=== PATIENT | male | born 1940 | race Two or more races ===

== ENCOUNTER 2017-09-20 10:41 | Emergency (ER) | payer OTHER, MEDICAID ==
[~2017-09-20] VITALS: Ht 170.2 cm; Wt 80.3 kg
[2017-09-20 11:27] VITALS: BP 132/74
[2017-09-20] MEDS ORDERED: LIDOCAINE 1% (LOCAL ANESTH.) PF 5ml SDV IJ ONE (11:45)
[2017-09-20] MEDS ORDERED: TETANUS-DIPTH-ACEL PERTUSSIS 0.5ML SYRG IM ONE (11:45)
== END 2017-09-20 13:15 | disposition home or self-care (01) ==
LOC: ER 10:41
DX: S61.012A Laceration without foreign body of left thumb without damage to nail, initial encounter (principal); S31.119A Laceration without foreign body of abdominal wall, unspecified quadrant without penetration into peritoneal cavity, initial encounter; I10 Essential (primary) hypertension; Z86.73 Personal history of transient ischemic attack (TIA), and cerebral infarction without residual deficits; W22.8XXA Striking against or struck by other objects, initial encounter; Y93.89 Activity, other specified; Y99.8 Other external cause status; Y92.89 Other specified places as the place of occurrence of the external cause
CPT/HCPCS: 12002; 71046; 73130; 74018; 90715

== ENCOUNTER 2017-10-04 09:40 | Emergency (ER) | payer MEDICARE, MEDICAID ==
[~2017-10-04] VITALS: Ht 177.8 cm; Wt 79.4 kg
[2017-10-04 10:28] VITALS: BP 137/81
== END 2017-10-04 11:36 | disposition home or self-care (01) ==
LOC: ER 09:40
DX: S31.119D Laceration without foreign body of abdominal wall, unspecified quadrant without penetration into peritoneal cavity, subsequent encounter (principal); I25.10 Atherosclerotic heart disease of native coronary artery without angina pectoris; I10 Essential (primary) hypertension; Z48.02 Encounter for removal of sutures

== ENCOUNTER 2022-04-20 10:01 | Emergency (ER) | payer OTHER, MEDICAID ==
[~2022-04-20] VITALS: Ht 175.3 cm; Wt 80.0 kg
[2022-04-20 10:44] LABS: Albumin 3.5 g/dL (3.4-5.0); Calcium 8.3 mg/dL (8.5-10.1); Potassium 3.1 mmol/L (3.5-5.1)
[2022-04-20 10:48] LABS: BUN/Creatinine Ratio 15.3; Bilirubin, Total 0.9 mg/dL (0.2-1.0); Total Protein 7.3 g/dL (6.4-8.2)
[2022-04-20 11:00] LABS: Basophils # (auto) 0 10 ^3/uL (0-0.2); Basophils % (auto) 0.2 % (0.0-2.0); Eosinophils # (auto) 0.1 10 ^3/uL (0-0.8); Eosinophils % (auto) 0.8 % (0.0-7.0); Hematocrit 42.3 % (41.0-53.0); Hemoglobin 14.8 g/dL (13.5-17.5); Lymphocytes # (auto) 1.2 10 ^3/uL (0.4-5.4); Lymphocytes % (auto) 15.8 % (10.0-50.0); Mean Corpuscular Hemoglobin 31.4 pg (28.0-32.0); Mean Corpuscular Volume 89.6 fL (80.0-100.0); Monocytes # (auto) 1.2 10 ^3/uL (0-1.3); Monocytes % (auto) 15.1 % (0.0-12.0); Neutrophils # (auto) 5.2 10 ^3/uL (1.6-8.6); Neutrophils % (auto) 68.1 % (37.0-80.0); Nucleated Red Blood Cells % 0.2 %; Red Blood Cells 4.72 10^6/uL (4.5-5.90); Red Cell Distribution Width 13.7 % (11.8-14.3); White Blood Cell 7.6 10^3/uL (4.4-10.8)
[2022-04-20] MEDS ORDERED: SODIUM CHLORIDE 0.9% 1,000 ML IV ONE (13:15)
[2022-04-20] MEDS ORDERED: ASPirin 81 mg TAB PO ONE (13:15)
[2022-04-20 14:37] LABS: INR 1.12 (0.9-1.15); Partial Thromboplastin Time 37.3 sec (24.6-33.4)
[2022-04-20] MEDS ORDERED: METO-281 PO ×2 (16:03→16:40)
[2022-04-20] MEDS ORDERED: OMEP-263 PO ×2 (16:03→16:40)
[2022-04-20] MEDS ORDERED: ALBUAER3 IN ×2 (16:03→16:40)
[2022-04-20] MEDS ORDERED: POTASSIUM EFFERVESENT TAB 25 MEQ PO ONE (16:15)
[2022-04-20 16:43] VITALS: BP 108/63
== END 2022-04-20 16:46 | disposition home or self-care (01) ==
LOC: ER 10:01
DX: R07.89 Other chest pain (principal); J84.10 Pulmonary fibrosis, unspecified; E87.6 Hypokalemia; I13.0 Hypertensive heart and chronic kidney disease with heart failure and stage 1 through stage 4 chronic kidney disease, or unspecified chronic kidney disease; N18.9 Chronic kidney disease, unspecified; I50.9 Heart failure, unspecified; I25.10 Atherosclerotic heart disease of native coronary artery without angina pectoris
CPT/HCPCS: 36415; 71046; 80053; 83735; 84443; 84484; 85025; 85610; 85730; 93005; 96360; 99285; J7030

== ENCOUNTER 2022-10-26 15:16 | Emergency (ER) | payer OTHER ==
[~2022-10-26] VITALS: Ht 170.2 cm; Wt 75.0 kg
[~2022-10-26 15:16] MED LIST: ALBUAER3 IN; METO-281 PO; OMEP-263 PO
[2022-10-26] MEDS ORDERED: HYDROmorphone HCL 2 MG/ML VL/or syr IM ONE (16:30)
[2022-10-26 16:35] LABS: Basophils # (auto) 0 10 ^3/uL (0-0.2); Basophils % (auto) 0.4 % (0.0-2.0); Eosinophils # (auto) 0.1 10 ^3/uL (0-0.8); Eosinophils % (auto) 1.3 % (0.0-7.0); Hematocrit 41.9 % (41.0-53.0); Hemoglobin 14.6 g/dL (13.5-17.5); Lymphocytes # (auto) 1.2 10 ^3/uL (0.4-5.4); Lymphocytes % (auto) 17.5 % (10.0-50.0); Mean Corpuscular Hemoglobin 32.2 pg (28.0-32.0); Mean Corpuscular Hgb Conc. 34.9 g/dL (32.0-36.0); Mean Corpuscular Volume 92.2 fL (80.0-100.0); Monocytes # (auto) 0.6 10 ^3/uL (0-1.3); Monocytes % (auto) 9.3 % (0.0-12.0); Neutrophils # (auto) 4.7 10 ^3/uL (1.6-8.6); Neutrophils % (auto) 71.5 % (37.0-80.0); Nucleated Red Blood Cells % 0.1 %; Red Blood Cells 4.54 10^6/uL (4.5-5.90); Red Cell Distribution Width 13.9 % (11.8-14.3); White Blood Cell 6.6 10^3/uL (4.4-10.8)
[2022-10-26 16:53] LABS: Albumin 3.8 g/dL (3.4-5.0); Calcium 8.6 mg/dL (8.5-10.1); Potassium 4.4 mmol/L (3.5-5.1)
[2022-10-26 16:56] LABS: BUN/Creatinine Ratio 21.1 (10.0-20.0); Bilirubin, Total 0.7 mg/dL (0.2-1.0); Total Protein 7.7 g/dL (6.4-8.2)
[2022-10-26] MEDS ORDERED: FLEET ENEMA(ADULT) 135 ML PR ONE ×2 (19:00)
[2022-10-26] MEDS ORDERED: LACT10SO3 PO (21:47)
[2022-10-26] MEDS ORDERED: SODIENE35 RE (21:47)
[2022-10-26 22:20] VITALS: BP 122/72
== END 2022-10-26 22:23 | disposition home or self-care (01) ==
LOC: EDBD 15:16 → ER 15:16
DX: K57.90 Diverticulosis of intestine, part unspecified, without perforation or abscess without bleeding (principal); K59.00 Constipation, unspecified; I11.0 Hypertensive heart disease with heart failure; I50.9 Heart failure, unspecified; Z88.6 Allergy status to analgesic agent; Z88.8 Allergy status to other drugs, medicaments and biological substances
CPT/HCPCS: 36415; 74176; 80053; 83690; 83735; 84484; 85025; 96372; 99285; J1170

== ENCOUNTER 2024-05-08 14:08 | Inpatient (IN) | payer OTHER, MEDICAID ==
[~2024-05-08] VITALS: Ht 177.8 cm; Wt 65.2 kg
[~2024-05-08 14:08] MED LIST changes: +LACT10SO3 PO; -OMEP-263 PO; +OMEP-448 PO; +SODIENE35 RE
--- NOTE | 2024-05-08 14:57 | ED.PDOC ---
SOB-HPI HPI Comments HPI: Poor Historian. 84-year-old male sent from his PCP's office for suspected pneumonia. The patient has been having productive cough and mild shortness of breath. Denies any fever or any other acute symptoms. PMHx: angina, CAD, CHF, HTN, HLD, and DM PSHx: denies Vitals: respiratory rate 16, SpO2 of 94%RA, pulse rate of 83, and a blood pressure of 126/76 REVIEW OF SYSTEMS: CONSTITUTIONAL: Denies acute: fever, diaphoresis, chills, generalized weakness. HEAD: Denies acute: headache, photophobia Eyes: Denies acute: Double vision, vision loss, eye pain, eye discharge. EARS: Denies acute: tinnitus, hearing loss, ear discharge, ear pain, THROAT: Denies acute: sore throat, swelling, difficulty swallowing , pain with swallowing, change in voice. NECK: Denies acute: neck pain, neck swelling, stiff neck. HEART: Denies acute : chest pain, palpitations, LUNGS: Denies acute: wheezing, hemoptysis ABDOMEN: Denies acute: abdominal pain, Nausea, Vomiting, diarrhea, melena , hematemesis, hematochezia SKIN: Denies acute: rash, redness, lesions, itchiness. EXTREMITIES: Denies acute: calf pain, numbness, tingling, weakness, denies pain in extremity. Denies acute: Low back pain. Neuro: Denies acute: focal neurological deficit, motor or sensory focal neurological deficit, tremors, seizure like activity, confusion, dizziness, change in mental status, loss of bowel or bladder function, cauda equina like symptoms. : Denies acute: dysuria, hematuria, flank pain, increase in urinary frequency. PSYCH: Denies acute: hallucination, suicidal ideation, homicidal ideation. PHYSICAL EXAM: General: no acute distress, awake and alert. Head: normocephalic, atraumatic. Neck: supple, trachea is midline, no swelling. Throat: Normal phonation. Eyes:, no erythema, no purulent discharge, no proptosis, no icterus. Heart: regular rate, regular rhythm, no significant murmur appreciated. Lungs: no apparent respiratory distress, Able to speak in full sentences. No wheezing, no rhonchi, no crackles. No stridors Clear to auscultation bilaterally. Abdomen: non tender to palpation, non distended, soft, no guarding, no rebound, + bowel sounds. Neuro: Awake, Alert, oriented to name, self, situation, follows commands GCS=15. Speech is normal. Skin: no petechia, no purpura, no cyanosis, non-pale, not jaundice. Lower extremities: --trace bilateral - Pitting edema no deformity, no focal swelling, no calf TTP. Makes eye contact. moves all four extremities. Face: no apparent facial droop. Ambulating in the ED independently. Time Seen by MD: 14:50 Primary Care Provider: JUAQUIN Reviewed notes: Nurses Notes, Allergies Information Source: Patient Was a procedure done? Was a procedure done?: No Differential Dx Differential Diagnosis: Other (DDx include ACS, unstable angina, anxiety, PE, pneumothroax, neoplasm, cardiac ischemia, COPD, asthma, CHF, pleural effusion, tobacco abuse, pneumonia, hypoxia, hypercapnia, anemia., infection/sepsis., pulmonary edema. Asthma, Cardiac tamponade, infection.) X-Ray, Labs, Meds, VS Vital Signs Date Time Temp Pulse Resp B/P (MAP) Pulse Ox O2 Delivery O2 Flow Rate FiO2 05/08/24 15:01 98.5 83 16 126/76 (93) 94 Lab Test 05/08/24 17:50 05/08/24 16:41 05/08/24 15:08 05/08/24 14:23 Range/Units Troponin I High Sensitivity 7 8 8 </=54 ng/L Blood Gas Specimen Type Arterial Blood Gas Sample Site Right radial Blood Gas Patient Temperature 37.0 Arterial Blood Date Drawn [id number] Arterial Blood pH 7.430 7.350-7.450 Arterial Blood Partial Pressure CO2 29.7 L 35.0-48.0 mmHg Arterial Blood Partial Pressure O2 59.0 L 83.0-108.0 mmHg Arterial Blood HCO3 19.3 L 21.0-28.0 mmol/L Arterial Blood Oxygen Saturation 91.2 L 94.0-98.0 % Arterial Blood Base Excess -3.7 L -2.0-3.0 mmol/L Arterial Blood Oxyhemoglobin 89.5 L 94.0-98.0 % Arterial Blood Carboxyhemoglobin 1.5 0.5-1.5 % Arterial Blood Methemoglobin 0.4 0.0-1.5 % Joe Test Yes Blood Gas Total Hemoglobin 14.50 13.5-17.5 g/dL Blood Gas Modality Room air FiO2 % 21.0 White Blood Count 7.6 4.4-10.8 10^3/uL Red Blood Count 4.58 4.5-5.90 10^6/uL Hemoglobin 14.6 13.5-17.5 g/dL Hematocrit 41.7 41.0-53.0 % Mean Corpuscular Volume 90.9 80.0-100.0 fL Mean Corpuscular Hemoglobin 31.9 28.0-32.0 pg Mean Corpuscular Hemoglobin Concent 35.1 32.0-36.0 g/dL Red Cell Distribution Width 13.6 11.8-14.3 % Platelet Count 383 140-450 10^3/uL Mean Platelet Volume 6.1 L 6.9-10.8 fL Neutrophils (%) (Auto) 73.6 37.0-80.0 % Lymphocytes (%) (Auto) 15.0 10.0-50.0 % Monocytes (%) (Auto) 10.1 0.0-12.0 % Eosinophils (%) (Auto) 1.0 0.0-7.0 % Basophils (%) (Auto) 0.3 0.0-2.0 % Neutrophils # (Auto) 5.6 1.6-8.6 10 ^3/uL Lymphocytes # (Auto) 1.1 0.4-5.4 10 ^3/uL Monocytes # (Auto) 0.8 0-1.3 10 ^3/uL Eosinophils # (Auto) 0.1 0-0.8 10 ^3/uL Basophils # (Auto) 0 0-0.2 10 ^3/uL Nucleated Red Blood Cells 0.1 % D-Dimer, Quantitative 1.56 H 0.0-0.49 mg/L FEU Sodium Level 142 136-145 mmol/L Potassium Level 4.7 3.5-5.1 mmol/L Chloride Level 107 98-107 mmol/L Carbon Dioxide Level 25 20-31 mmol/L Anion Gap 10 5-15 Blood Urea Nitrogen 27 H 9-23 mg/dL Creatinine 1.84 H 0.700-1.30 mg/dL Glomerular Filtration Rate Calc 36 >90 mL/min BUN/Creatinine Ratio 14.7 10.0-20.0 Serum Glucose 100 74-106 mg/dL Calcium Level 9.2 8.7-10.4 mg/dL Total Bilirubin 0.6 0.2-1.0 mg/dL Aspartate Amino Transferase (AST) 16 13-40 U/L Alanine Aminotransferase (ALT) 12 7-40 U/L Alkaline Phosphatase 161 H 46-116 U/L B-Type Natriuretic Peptide 170.51 0-100 pg/mL Total Protein 7.6 5.7-8.2 g/dL Albumin 4.4 3.2-4.8 g/dL [place] [address] Ph: [phone] DIAGNOSTIC IMAGING Diagnostic Imaging Report : [id number] Signed PATIENT: GABRIELA AGUILAR ACCT: [id number] UNIT: [id number] : 1940 LOC: ER ROOM / BED: / AGE / SEX: 84 / M ADM STATUS: REG ER SERVICE 1623 ORDERING PHYSICIAN: WILMAN MOTLEY DO PROCEDURE(s): CX2CT - CHEST WITHOUT CONTRAST REASON: cough sob elevated D dimer ORDER NUMBER(s): [id number], ACCESSION NUMBER(s): [id number] Procedure: CT CHEST WITHOUT CONTRAST Reason for study/Clinical History: cough sob elevated D dimer Comparison Study: None available at time of dictation. Exam Date: 05/08/2024 04:26 PM TECHNIQUE: Multidetector CT of the chest was performed from the lung apices to the upper abdomen without the use of intravenous contract. Axial, coronal and sagittal multiplanar reformats were performed. Radiation Dose Information: CT Dose: CTDI volume is 7.41 mGy. Dose-length product is 252.96 mGy*cm The dose indicators for CT are the volume Computed Tomography (CT) Dose Index (CTDIvol) and the Dose Length Product (DLP), and are measured in units of mGy and mGy-cm, respectively. These indicators are not patient dose, but values generated from the CT scanner acquisition factors. The report includes radiation exposure data for exposures received during this examination. FINDINGS: Lower neck: Normal thyroid. Lungs: Bilateral pulmonary fibrosis. Worse in the right middle and lower lobe and left lower lobe. There are no prior studies for comparison so acute versus chronic disease can not be distinguished. Heart/Vascular Structures: Normal heart size. No pericardial effusion. Lymph Nodes: No adenopathy Pleura: No pleural effusion or significant pneumothorax. Musculoskeletal: No acute osseous abnormality. Sternal wire sutures in place. Compressed T6 and T8. Soft tissues: Normal. Upper abdomen: Moderately large hiatal hernia IMPRESSION: 1. Interstitial infiltrates in both bases and right middle lobe and lingula. Acute versus chronic disease can not be distinguished without comparison films. 2. Sternal wire sutures in place. 3. Compressed T6 and T8 without displacement. Radiation optimization: All CT scans at this facility use at least one of these dose optimization techniques: automated exposure control mA and/or kV adjustment per patient size (includes targeted exams where dose is matched to clinical indication) or iterative reconstruction. ATED BY: DORIAN JACKSON Jr., DO DICTATED DATE/TIME: 05/08/241723 SIGNED BY: DORIAN JACKSON Jr., DO SIGNED DATE/TIME: 05/08/241723 CC: [place] [address] Ph: [phone] DIAGNOSTIC IMAGING Diagnostic Imaging Report : [id number] Signed PATIENT: GABRIELA AGUILAR ACCT: [id number] UNIT: [id number] : 1940 LOC: ER ROOM / BED: / AGE / SEX: 84 / M ADM STATUS: REG ER SERVICE 51 ORDERING PHYSICIAN: WILMAN MOTLEY DO PROCEDURE(s): CXRP - CHEST PORTABLE REASON: cough sob ORDER NUMBER(s): [id number], ACCESSION NUMBER(s): [id number] CHEST RADIOGRAPH Indication:cough sob Technique: Single frontal view of the chest was obtained COMPARISON: EKG on DOS: 04/20/22, EKG on DOS: 04/20/22, EKG on DOS: 04/20/22 FINDINGS: Lines and Tubes: Median sternotomy. Lungs: Multifocal airspace disease. Chronic fibrotic changes. Pleura: No effusion. No pneumothorax. Cardiomediastinal contours: Cardiomegaly. Moderate hiatal hernia. Bones: Unremarkable IMPRESSION: Chronic fibrotic changes with probable superimposed multifocal airspace disease. Clinical correlation advised. ATED BY: EDVIN FREEMAN MD DICTATED DATE/TIME: 05/08/241514 SIGNED BY: EDVIN FREEMAN MD SIGNED DATE/TIME: 05/08/241514 CC: Time of 1ST Reevaluation: 15:20 Reevaluation 1ST: Unchanged Patient Education/Counseling: Diagnosis, Treatment Family Education/Counseling: No Family Present Comments Patient presented with the above HPI.----dyspnea/cough--workup was initiated. patient was found with the above mentioned diagnosis. Patient was given: Rocephin Patient ED course and VS have been stabilized. Patient has been reassessed in the ED and remained in a stable condition. Pertinent incidental findings were discussed with the patient and/or family. Patient/family voices understanding and is agreeable with plan. Patient has been observed in the ED adequate length of time to insure improvement/stability. patient was admitted to the medicine team for further evaluation and treatment of their presentation. We were unable to obtain a CTA angiogram of the chest to rule out PE because of the patient's creatinine level. V/Q scan is not available at this hour at this facility. All the reports of any imaging studies that were ordered by myself were reviewed by myself. Departure 1 Departure Time of Disposition: 16:25 Impression: Primary Impression: Multifocal pneumonia Additional Impressions: Dyspnea Elevated d-dimer Disposition: ADMITTED INPATIENT Admit to: [facility] Condition: Guarded Discharged With: Self Critical Care Note Critical Care Time?: No Heart Score Heart Score: Heart Score Response (Comments) Value History Slightly Suspicious 0 EKG Normal 0 Age >65 2 Risk Factors >3 or Hx ASHD 2 Troponin Normal limit 0 Total 4 I personally scribed for WILMAN MOTLEY DO ([email or web address]) on 05/08/24 at 14:57. Electronically submitted by Fidel Chavis ([email or web address]). I personally scribed for WILMAN MOTLEY DO ([email or web address]) on 05/08/24 at 19:02. Electronically submitted by Fidel Chavis ([email or web address]). I personally scribed for WILMAN MOTLEY DO ([email or web address]) on 05/08/24 at 19:26. Electronically submitted by Fidel Chavis ([email or web address]). WILMAN MOTLEY DO May 08, 2024 14:57
--- NOTE | 2024-05-08 15:18 | DVH ---
CHEST RADIOGRAPH Indication:cough sob Technique: Single frontal view of the chest was obtained COMPARISON: EKG on DOS: 04/20/22, EKG on DOS: 04/20/22, EKG on DOS: 04/20/22 FINDINGS: Lines and Tubes: Median sternotomy. Lungs: Multifocal airspace disease. Chronic fibrotic changes. Pleura: No effusion. No pneumothorax. Cardiomediastinal contours: Cardiomegaly. Moderate hiatal hernia. Bones: Unremarkable IMPRESSION: Chronic fibrotic changes with probable superimposed multifocal airspace disease. Clinical correlatio n advised.
[2024-05-08 15:31] LABS: Basophils # (auto) 0 10 ^3/uL (0-0.2); Basophils % (auto) 0.3 % (0.0-2.0); Eosinophils # (auto) 0.1 10 ^3/uL (0-0.8); Hematocrit 41.7 % (41.0-53.0); Hemoglobin 14.6 g/dL (13.5-17.5); Lymphocytes # (auto) 1.1 10 ^3/uL (0.4-5.4); Mean Corpuscular Hemoglobin 31.9 pg (28.0-32.0); Mean Corpuscular Hgb Conc. 35.1 g/dL (32.0-36.0); Mean Corpuscular Volume 90.9 fL (80.0-100.0); Monocytes # (auto) 0.8 10 ^3/uL (0-1.3); Monocytes % (auto) 10.1 % (0.0-12.0); Neutrophils # (auto) 5.6 10 ^3/uL (1.6-8.6); Neutrophils % (auto) 73.6 % (37.0-80.0); Nucleated Red Blood Cells % 0.1 %; Platelet Count (auto) 383 10^3/uL (140-450); Red Blood Cells 4.58 10^6/uL (4.5-5.90); Red Cell Distribution Width 13.6 % (11.8-14.3); White Blood Cell 7.6 10^3/uL (4.4-10.8)
[2024-05-08 15:50] LABS: Alanine Aminotransferase 12 U/L (7-40); Albumin 4.4 g/dL (3.2-4.8); Alkaline Phosphatase 161 U/L (46-116); Anion Gap 10 (5-15); Aspartate Aminotransferase 16 U/L (13-40); BUN/Creatinine Ratio 14.7 (10.0-20.0); Blood Urea Nitrogen 27 mg/dL (9-23); Calcium 9.2 mg/dL (8.7-10.4); Carbon Dioxide 25 mmol/L (20-31); Chloride 107 mmol/L (98-107); Glucose 100 mg/dL (74-106); Potassium 4.7 mmol/L (3.5-5.1); Sodium 142 mmol/L (136-145)
[2024-05-08 15:51] LABS: Bilirubin, Total 0.6 mg/dL (0.2-1.0); Total Protein 7.6 g/dL (5.7-8.2)
[2024-05-08 16:45] LABS: Base Excess -3.7 mmol/L (-2.0-3.0)
--- NOTE | 2024-05-08 17:27 | DVH ---
Procedure: CT CHEST WITHOUT CONTRAST Reason for study/Clinical History: cough sob elevated D dimer Comparison Study: None available at time of dictation. Exam Date: 05/08/2024 04:26 PM TECHNIQUE: Multidetector CT of the chest was performed from the lung apices to the upper abdomen with out the use of intravenous contract. Axial, coronal and sagittal multiplanar reformats were performed . Radiation Dose Information: CT Dose: CTDI volume is 7.41 mGy. Dose-length product is 252.96 mGy*cm The dose indicators for CT are the volume Computed Tomography (CT) Dose Index (CTDIvol) and the Dose Length Product (DLP), and are measured in units of mGy and mGy-cm, respectively. These indicators are not patient dose, but values generated from the CT scanner acquisition factors. The report includes radiation exposure data for exposures received during this examination. FINDINGS: Lower neck: Normal thyroid. Lungs: Bilateral pulmonary fibrosis. Worse in the right middle and lower lobe and left lower lobe. T here are no prior studies for comparison so acute versus chronic disease can not be distinguished. Heart/Vascular Structures: Normal heart size. No pericardial effusion. Lymph Nodes: No adenopathy Pleura: No pleural effusion or significant pneumothorax. Musculoskeletal: No acute osseous abnormality. Sternal wire sutures in place. Compressed T6 and T8. Soft tissues: Normal. Upper abdomen: Moderately large hiatal hernia IMPRESSION: 1. Interstitial infiltrates in both bases and right middle lobe and lingula. Acute versus chronic dis ease can not be distinguished without comparison films. 2. Sternal wire sutures in place. 3. Compressed T6 and T8 without displacement. Radiation optimization: All CT scans at this facility use at least one of these dose optimization dae hniques: automated exposure control mA and/or kV adjustment per patient size (includes targeted exam s where dose is matched to clinical indication) or iterative reconstruction.
[2024-05-08] MEDS ORDERED: ONDANSETRON HCL 4 MG/2 ML VIAL IV PRN (21:00)
[2024-05-08] MEDS ORDERED: NITROGLYCERIN 0.4 MG SL TAB SL PRN (21:00)
[2024-05-08] MEDS ORDERED: MORPHINE SULFATE INJ 2 MG/ml SYRG IV PRN (21:00)
[2024-05-08] MEDS ORDERED: HYDROcodone-ACET 5/325MG TAB PO PRN (21:00)
[2024-05-08 21:55] VITALS: PULSE 96; RESP 18; O2SAT 96
[2024-05-08 22:00] VITALS: O2SAT 91
[2024-05-08] MEDS: SODIUM CHLOR 0.9% PF (SALINE LOCK) 10ML VIAL/SYR IV SCH (22:00)
[2024-05-08 22:15] VITALS: BP 106/71; PULSE 86; RESP 16; TEMP 98.5; O2SAT 91
[2024-05-08] MEDS: cefTRIAXone 1GM/50ML D5W 50 ML IV ONE (22:27)
--- NOTE | 2024-05-08 22:28 | DVHHPRES ---
History of Present Illness Resident Creating Document: STEVE MORRIS RESIDENT History of Present Illness This is a 84-year-old male with past medical history of hypertension, hyperlipidemia, prediabetic, CHF, CAD with status post CABG X 2 , gallstone presented to the ED referred from PCP with a complaint of cough and yellowish sputum for last 2 weeks. Patient states that he started having cough with yellowish sputum started 2 weeks ago and and associated with intermittent sharpness of breath, getting worse that prompted this visit. Patient denies fever, chills, sick contact, recent traveling, abdominal pain, H chest pain, dizziness, diaphoresis, nausea, vomiting, dysuria or any change in bowel and sandra dder habit Past Medical History Hypertension, hyperlipidemia, CHF, prediabetic, CAD Past Surgical History CABG X2 times Family History No significant family history Smoke: Quit ALCOHOL: none Drugs: None Lives: Friends Past Social History Review of Systems Constitutional: No: Fever, Chills, Sweats, Weakness, Malaise, Other Eyes: No: Pain, Vision change, Conjunctivae inflammation, Eyelid inflammation, Other, Redness ENT: No: Ear pain, Ear discharge, Nose pain, Nose discharge, Nose congestion, Mouth pain, Mouth swelling, Throat pain, Throat swelling, Other Respiratory: Cough, Shortness of breath, Sputum Cardiovascular: No: Chest Pain, Palpitations, Orthopnea, Paroxysmal Noc. Dyspnea, Edema, Lt Headedness, Other Gastrointestinal: No: Nausea, Vomiting, Abdominal Pain, Diarrhea, Constipation, Melena, Hematochezia, Other Genitourinary: No Dysuria, No Frequency, No Incontinence, No Hematuria, No Retention, No Other Musculoskeletal: No: other, neck pain, shoulder pain, arm pain, back pain, hand pain, leg pain, foot pain Skin: No: Rash, Lesions, Jaundice, Bruising, Other Neurological: No: Weakness, Numbness, Incoordination, Change in speech, Confusion, Seizures, Other Allergies: Coded Allergies: NO KNOWN ALLERGIES (Unverified , 09/20/17) Medications Current Medications Medications Dose Ordered Sig/Jen Route Start Time Stop Time Status Last Admin Dose Admin Sodium Chloride 10 ml Q8HR IV 05/08/24 22:00 Acetaminophen/ Hydrocodone Bitart 1 tab Q4HP PRN PO 05/08/24 21:00 Ondansetron HCl 4 mg Q4HP PRN IV 05/08/24 21:00 Nitroglycerin 0.4 mg Q5MINP PRN SL 05/08/24 21:00 Morphine Sulfate 2 mg Q30M PRN IV 05/08/24 21:00 Ceftriaxone Sodium 50 ml @ 100 mls/hr DAILY IV 05/09/24 10:00 Azithromycin 250 ml @ 125 mls/hr DAILY IV 05/09/24 10:00 Albuterol 2.5 mg Q4HPRN NEB 05/09/24 02:00 Ipratropium [place] 0.5 mg Q4HPRN NEB 05/09/24 02:00 Exam Vital Signs Vital Signs Date Time Temp Pulse Resp B/P (MAP) Pulse Ox O2 Delivery O2 Flow Rate FiO2 05/08/24 21:55 96 18 96 Room Air* 0 21 05/08/24 21:55 98.7 106/71 (83) 98.7 Exam Physical examination: General Appearance: Alert, Oriented X3, Cooperative, No acute distress HEENT: Atraumatic, PERRLA, EOMI, Mucous membrane moist/pink Respiratory: Bilateral rales and crackles. Cardiovascular: Regular rate, Normal S1, Normal S2, No murmurs, no chest wall tenderness Abdominal: Normal bowel sounds, Soft, No tenderness, No hepatospenomegaly, No masses Extremities: No clubbing, No cyanosis, No edema, Normal pulses, No tenderness/swelling Skin: No rashes, No breakdown, No significant lesion Neuro: Normal gait, Normal speech, Strength at 5/5 X4 ext, Normal tone, Sensation intact, grossly intact cranial nerves Psych/Mental Status: Mental status NL, Mood NL Labs/Xrays Labs Test 05/08/24 17:50 05/08/24 16:41 05/08/24 15:08 Range/Units Troponin I High Sensitivity 7 </=54 ng/L Blood Gas Specimen Type Arterial Blood Gas Sample Site Right radial Blood Gas Patient Temperature 37.0 Arterial Blood Date Drawn [id number] Arterial Blood pH 7.430 7.350-7.450 Arterial Blood Partial Pressure CO2 29.7 L 35.0-48.0 mmHg Arterial Blood Partial Pressure O2 59.0 L 83.0-108.0 mmHg Arterial Blood HCO3 19.3 L 21.0-28.0 mmol/L Arterial Blood Oxygen Saturation 91.2 L 94.0-98.0 % Arterial Blood Base Excess -3.7 L -2.0-3.0 mmol/L Arterial Blood Oxyhemoglobin 89.5 L 94.0-98.0 % Arterial Blood Carboxyhemoglobin 1.5 0.5-1.5 % Arterial Blood Methemoglobin 0.4 0.0-1.5 % Joe Test Yes Blood Gas Total Hemoglobin 14.50 13.5-17.5 g/dL Blood Gas Modality Room air FiO2 % 21.0 White Blood Count 7.6 4.4-10.8 10^3/uL Red Blood Count 4.58 4.5-5.90 10^6/uL Hemoglobin 14.6 13.5-17.5 g/dL Hematocrit 41.7 41.0-53.0 % Mean Corpuscular Volume 90.9 80.0-100.0 fL Mean Corpuscular Hemoglobin 31.9 28.0-32.0 pg Mean Corpuscular Hemoglobin Concent 35.1 32.0-36.0 g/dL Red Cell Distribution Width 13.6 11.8-14.3 % Platelet Count 383 140-450 10^3/uL Mean Platelet Volume 6.1 L 6.9-10.8 fL Neutrophils (%) (Auto) 73.6 37.0-80.0 % Lymphocytes (%) (Auto) 15.0 10.0-50.0 % Monocytes (%) (Auto) 10.1 0.0-12.0 % Eosinophils (%) (Auto) 1.0 0.0-7.0 % Basophils (%) (Auto) 0.3 0.0-2.0 % Neutrophils # (Auto) 5.6 1.6-8.6 10 ^3/uL Lymphocytes # (Auto) 1.1 0.4-5.4 10 ^3/uL Monocytes # (Auto) 0.8 0-1.3 10 ^3/uL Eosinophils # (Auto) 0.1 0-0.8 10 ^3/uL Basophils # (Auto) 0 0-0.2 10 ^3/uL Nucleated Red Blood Cells 0.1 % D-Dimer, Quantitative 1.56 H 0.0-0.49 mg/L FEU Sodium Level 142 136-145 mmol/L Potassium Level 4.7 3.5-5.1 mmol/L Chloride Level 107 98-107 mmol/L Carbon Dioxide Level 25 20-31 mmol/L Anion Gap 10 5-15 Blood Urea Nitrogen 27 H 9-23 mg/dL Creatinine 1.84 H 0.700-1.30 mg/dL Glomerular Filtration Rate Calc 36 >90 mL/min BUN/Creatinine Ratio 14.7 10.0-20.0 Serum Glucose 100 74-106 mg/dL Calcium Level 9.2 8.7-10.4 mg/dL Total Bilirubin 0.6 0.2-1.0 mg/dL Aspartate Amino Transferase (AST) 16 13-40 U/L Alanine Aminotransferase (ALT) 12 7-40 U/L Alkaline Phosphatase 161 H 46-116 U/L B-Type Natriuretic Peptide 170.51 0-100 pg/mL Total Protein 7.6 5.7-8.2 g/dL Albumin 4.4 3.2-4.8 g/dL Assessment/Plan Assessment/Plan Assessment and plan: # Cough with productive sputum likely due to multifocal Gram-positive/Gram-negative pneumonia - CT chest revealed interstitial infiltrates in both bases and right middle lobe and lingula - Patient is on room air - Duoneb with ipratropium and albuterol q.4 p.r.n. 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 Mayen Plan discussed with: Patient, Other My Orders Orders - STEVE MORRIS RESIDENT Procedure Category Date Status Time Admit ADMIT 05/08/24 Transmitted 20:54 Code Status CODE 05/08/24 Transmitted 20:54 Sodium Chloride Lock PHA 05/08/24 In Process (Saline Lock Ns) 22:00 Hydrocodone-Acet PHA 05/08/24 In Process 5/325mg Tab ([place] 21:00 Ondansetron Hcl PHA 05/08/24 In Process (Zofran) 21:00 Fall Risk Precautions GERI 05/08/[address] 20:54 Complete Blood Count LAB 05/09/24 Verified 04:00 Comprehensive LAB 05/09/24 Verified Metabolic Panel 04:00 Pt Request For Service PT 05/08/24 Logged 20:54 Sequential GERI 05/08/24 In Process Compression Device Nitroglycerin [facility] 05/08/24 In Process Sublingual (Ntrostat 21:00 Morphine Sulfate PHA 05/08/24 In Process Injection 21:00 Oxygen By Nasal RT 05/08/24 Transmitted Cannula 20:54 Stat Ekg For Chest [facility] 05/08/24 In Process Pain 20:54 Notify Md Of Changes [facility] 05/08/24 In Process From Base 20:54 Bone Glue Maker For [facility] 05/08/24 In Process 24 Hours 20:54 Emergency Dysrhythmia [facility] 05/08/24 In Process Protocol 20:54 Rhythm Strips Once [facility] 05/08/24 In Process Every Shift 20:54 Ceftriaxone 1gm/50ml PHA 05/09/24 In Process D5w (Rocephin) 10:00 Azithromycin 500mg/ PHA 05/09/24 In Process 250ml (Zithromax 50 10:00 Rapid Influenza A&B LAB 05/08/24 Logged 21:55 Albuterol Medneb PHA 05/09/24 In Process (Ventolin Medneb) 02:00 Ipratropium Medneb PHA 05/09/24 In Process (Atrovent Medneb) 02:00 Date of Service: May 08, 2024 Billing Provider: VANCE MAYEN MD Common Visit Codes: [id number] INP/OBS CARE (HIGH) Secondary Visit Codes: [id number] CARE PLAN 30 MINUTES STEVE MORRIS RESIDENT May 08, 2024 22:28 VANCE MAYEN MD May 09, 2024 13:42
[2024-05-08] MEDS: SODIUM CHLORIDE 0.9% 1,000 ML IV ONE (22:59)
[2024-05-09] VITALS (10 sets, daily range): BP systolic 100–120; BP diastolic 51–77; PULSE 60–92; RESP 16–22; TEMP 97.5–98.3; O2SAT 90–96
[2024-05-09] MEDS ORDERED: ALBUTEROL SULF 2.5 MG/0.5ML(0.5%) NEB SOLN NEB SCH (02:00)
[2024-05-09] MEDS ORDERED: IPRATROPIUM BROM 0.5 MG/2.5ML INH SOL NEB SCH (02:00)
[2024-05-09] MEDS ORDERED: ATOR20TA PO (04:53)
[2024-05-09] MEDS ORDERED: TRAZ-227 PO (04:53)
[2024-05-09] MEDS ORDERED: HYDR-4902 PO (04:53)
[2024-05-09] MEDS ORDERED: ASPI-543 PO (04:53)
[2024-05-09] MEDS ORDERED: NITR0.4S29 SL (04:53)
[2024-05-09 04:56] LABS: Rapid Influenza A Negative (Negative); Rapid Influenza B Negative (Negative)
[2024-05-09 04:57] LABS: COVID19 ANTIGEN SOFIA FIA NEGATIVE (NEGATIVE)
[2024-05-09 06:36] LABS: Basophils # (auto) 0 10 ^3/uL (0-0.2); Basophils % (auto) 0.3 % (0.0-2.0); Eosinophils # (auto) 0.1 10 ^3/uL (0-0.8); Eosinophils % (auto) 1.2 % (0.0-7.0); Hematocrit 35.8 % (41.0-53.0); Hemoglobin 12.3 g/dL (13.5-17.5); Lymphocytes # (auto) 1.1 10 ^3/uL (0.4-5.4); Lymphocytes % (auto) 16.6 % (10.0-50.0); Mean Corpuscular Hemoglobin 31.5 pg (28.0-32.0); Mean Corpuscular Hgb Conc. 34.4 g/dL (32.0-36.0); Mean Corpuscular Volume 91.4 fL (80.0-100.0); Monocytes # (auto) 0.8 10 ^3/uL (0-1.3); Monocytes % (auto) 11.6 % (0.0-12.0); Neutrophils # (auto) 4.6 10 ^3/uL (1.6-8.6); Neutrophils % (auto) 70.3 % (37.0-80.0); Platelet Count (auto) 329 10^3/uL (140-450); Red Blood Cells 3.92 10^6/uL (4.5-5.90); Red Cell Distribution Width 13.7 % (11.8-14.3); White Blood Cell 6.6 10^3/uL (4.4-10.8)
[2024-05-09 06:49] LABS: Albumin 3.8 g/dL (3.2-4.8); Alkaline Phosphatase 123 U/L (46-116); Anion Gap 10 (5-15); Aspartate Aminotransferase 12 U/L (13-40); BUN/Creatinine Ratio 14.3 (10.0-20.0); Bilirubin, Total 0.4 mg/dL (0.2-1.0); Blood Urea Nitrogen 25 mg/dL (9-23); Carbon Dioxide 20 mmol/L (20-31); Chloride 111 mmol/L (98-107); Glucose 94 mg/dL (74-106); Potassium 4.3 mmol/L (3.5-5.1); Sodium 141 mmol/L (136-145); Total Protein 6.8 g/dL (5.7-8.2)
[2024-05-09 07:02] LABS: Alanine Aminotransferase < 9 U/L (7-40)
[2024-05-09] MEDS: cefTRIAXone 1GM/50ML D5W 50 ML IV SCH (08:51)
[2024-05-09] MEDS ORDERED: ALBUTEROL SULF 2.5 MG/0.5ML(0.5%) NEB SOLN NEB PRN (09:00)
[2024-05-09] MEDS ORDERED: IPRATROPIUM BROM 0.5 MG/2.5ML INH SOL NEB PRN (09:00)
--- NOTE | 2024-05-09 10:14 | DVHPNRES ---
Progress Note Date Seen: May 09, 2024 Resident Creating Document: ADILIA BOLIVAR RESIDENT Medical Necessity Reason Pt with a Central, PICC or Fol: No Subjective Review of Systems Patient is 84 years old male with past medical history of hypertension, hyperlipidemia, CAD, status post CABG x2 in 2009 in [facility], prediabetes, CKD, congestive heart failure, coronary artery disease came with a complaint of productive cough for 2 weeks. As per patient patient went to the primary care physician yesterday with a complaint of productive cough, yellowish in color for last 2 weeks associated shortness of breath and PCP the patient ER for further evaluation and care. Patient reported having worsening cough with yellowish sputum for last 2 weeks. Patient also reported some worsening short of breath which worsened with exertion. Patient's reported E can take only few steps and he gets short of breath. Patient also complained about feeling weak and tired lately. Denied any fever, chest pain, palpitation, acute leg swelling or joint pain, dysarthria. Initial lab workup revealed D-dimer 1.56, serum creatinine 1.84, GFR 36, HGB A1c 5.9, alkaline phosphatase 161, BNP 170, TSH 3.55, ABG 7.430, pCO2 29.7, bicarbonate 19.3. CXR revealed-Chronic fibrotic changes with probable superimposed multifocal airspace disease. CT chest revealed- Interstitial infiltrates in both bases and right middle lobe and lingula. Acute versus chronic disease can not be distinguished without comparison films. Sternal wire sutures in place.Compressed T6 and T8 without displacement. She also revealed bullous changes and fibrotic changes bilaterally. 2D revealed-Normal left ventricular size and dimension. Normal left ventricular systolic function estimated ejection fraction of 55%. There is a grade 1 diastolic dysfunction. Normal right ventricular size and dimension. Normal right ventricular systolic function. Severely elevated right ventricular systolic pressure 70 mm of mercury. mild dilatation of the left atrium. Normal-sized right atrium PMH-hypertension, hyperlipidemia, CAD, status post CABG x2 in 2009 in [facility], prediabetes, CKD, congestive heart failure, coronary artery disease PSH- CABG x2 in 2009, inguinal hernia repair Allergy- NKDA Personal History/ Social History- lives in a rental house, ex-smoker, ex alcoholic, no drug abuser Patient was seen today at the bedside. Patient shortness of breaths and cough Cardiovascular- deny acute chest pain or palpitation Gastrointestinal- denies any rectal bleeding, nausea or vomiting Musculoskeletal-denies acute joint swelling or tenderness or redness Neurological- denies acute dysarthria, dysphagia, change in vision Psychiatry- denies depression or SI or HI Skin- denies acute rash or purpura Patient was seen today for clinical evaluation. Labs and chart reviewed. Patient complained of ongoing cough with yellowish sputum. Patient tachypneic, maintaining SpO2> 94% in room air. Patient was started on ceftriaxone 1 g IV daily and azithromycin 500 mg IV daily. Tolerating well. Echo 2D revealed LVEF 55%.Severely elevated right ventricular systolic pressure 70 mm of mercury. Objective vital signs Vital Sign Date Time Temp Pulse Resp B/P (MAP) Pulse Ox O2 Delivery O2 Flow Rate FiO2 05/09/24 08:28 98.3 69 17 119/64 (82) 95 98.3 05/09/24 06:56 Room Air* 0 21 Total Intake and Output 05/08/24 05/08/24 05/09/24 15:00 23:00 07:00 Intake Total 0 ml Balance 0 ml medications Current Medications Medications Dose Ordered Sig/Jen Route Start Time Stop Time Status Last Admin Dose Admin Sodium Chloride 10 ml Q8HR IV 05/08/24 22:00 05/09/24 05:22 10 ML Acetaminophen/ Hydrocodone Bitart 1 tab Q4HP PRN PO 05/08/24 21:00 Ondansetron HCl 4 mg Q4HP PRN IV 05/08/24 21:00 Nitroglycerin 0.4 mg Q5MINP PRN SL 05/08/24 21:00 Morphine Sulfate 2 mg Q30M PRN IV 05/08/24 21:00 Ceftriaxone Sodium 50 ml @ 100 mls/hr DAILY IV 05/09/24 10:00 05/09/24 08:51 100 MLS/HR Azithromycin 250 ml @ 125 mls/hr DAILY IV 05/09/24 10:00 Heparin Sodium (Porcine) 5,000 units Q12HR SC 05/09/24 10:00 Albuterol 2.5 mg Q4HPRN PRN NEB 05/09/24 09:00 Ipratropium [place] 0.5 mg Q4HPRN PRN NEB 05/09/24 09:00 Examination General examination- awake, alert, oriented HEENT- PEERLA, no acute nasal discharge Cardiovascular- S1-S2 audible, rate and rhythm regular, no murmur Respiratory- lung crackles on the right lower lung field+ Gastrointestinal-nontender, bowel sound+. Nondistended Musculoskeletal-no acute joint swelling or tenderness or redness# Lower extremity- no leg edema Neurological- cranial nerves intact, no acute dysarthria or dysphagia Psychiatry- denies depression or SI or HI Skin- fragile skin laboratory and microbiology Laboratory Tests 05/09/24 06:05 Test 05/09/24 06:05 Range/Units Serum Glucose 94 74-106 mg/dL Problem List/Assessment/Plan Problem List/Assessment/Plan # pneumonia Gram-positive versus Gram-negative -continue ceftriaxone 1 g IV daily -continue azithromycin 500 mg IV daily -CXR revealed-Chronic fibrotic changes with probable superimposed multifocal airspace disease. CT chest revealed- Interstitial infiltrates in both bases and right middle lobe and lingula. Acute versus chronic disease can not be distinguished without comparison films.Sternal wire sutures in place.Compressed T6 and T8 without displacement. She also revealed bullous changes and fibrotic changes bilaterally. - #Acute exacerbation of COPD --CXR revealed-Chronic fibrotic changes with probable superimposed multifocal airspace disease. CT chest revealed- Interstitial infiltrates in both bases and right middle lobe and lingula. Acute versus chronic disease can not be distinguished without comparison films.Sternal wire sutures in place.Compressed T6 and T8 without displacement. She also revealed bullous changes and fibrotic changes bilaterally. --continue ceftriaxone 1 g IV daily -continue azithromycin 500 mg IV daily -continue methylprednisolone 40 mg IV b.i.d. # bilateral pulmonary fibrosis with superimposed pneumonia ---CXR revealed-Chronic fibrotic changes with probable superimposed multifocal airspace disease. -CT chest revealed- Interstitial infiltrates in both bases and right middle lobe and lingula. Acute versus chronic disease can not be distinguished without comparison films.Sternal wire sutures in place.Compressed T6 and T8 without displacement. She also revealed bullous changes and fibrotic changes bilaterally. --continue ceftriaxone 1 g IV daily -continue azithromycin 500 mg IV daily # hypertension -hydralazine 10 mg IV Q 6 H p.r.n. # hyperlipidemia -continue aspirin 81 mg p.o. q.d. -continue atorvastatin 20 mg q.h.s. # CAD, status post CABG x2 --continue aspirin 81 mg p.o. q.d. -continue atorvastatin 20 mg q.h.s. # pulmonary hypertension likely due to COPD - 2D revealed-Normal left ventricular size and dimension. N Severely elevated right ventricular systolic pressure 70 mm of mercury. mild dilatation of the left atrium. Normal-sized right atrium # respiratory alkalosis -likely due to hyperventilation due to acute exacerbation of COPD -continue current management # AARON on CKD stage III B -avoid dehydration and nephrotoxic drugs # heart failure with preserved ejection fraction (HFpEF) -no acute exacerbation # prediabetes -monitor blood sugar Carbohydrate consistent diet Goals of care/advance care planning; FULL CODE; discussed with the patient PUD prophylaxis: Pantoprazole DVT prophylaxis: Lovenox Plan discussed with Dr. Gonzalez,,, nursing staff, patient Total time spent on patient evaluation, chart review, assessment and plan, discussion discussion >20 minutes Plan discussed with: Patient Plan discussed with: Patient, Other (RN) My Orders My Orders Orders - ADILIA BOLIVAR Procedure Category Date Status Time Echo 2d Mode Cardiac US 05/09/24 Logged DOP 09:20 Date of Service: May 09, 2024 Billing Provider: ELZBIETA GONZALEZ MD Common Visit Codes: [id number] INP/OBS CARE(HIGH) Secondary Visit Codes: [id number] CARE PLAN 30 MINUTES ADILIA BOLIVAR May 09, 2024 10:14 ELZBIETA GONZALEZ MD May 11, 2024 11:34
[2024-05-09] MEDS: AZITHROMYCIN 500MG/ 250ML 250 ML IV SCH (10:23)
[2024-05-09] MEDS: HEPARIN SODIUM (PORCINE) 5000 UNITS/ML 1ML VIAL SC SCH (10:25)
[2024-05-09] MEDS: methylPREDNISolone SOD SUCC 40 MG/ML VL IV ONE (12:07)
--- NOTE | 2024-05-09 12:08 | DVHSR ---
APPROVED REPORT EXAM: Two-dimensional and M-mode echocardiogram with Doppler and color Doppler. Blood Pressure: 119/64 mmHg INDICATION SOB, CAD, CABG x2 in 2009 Surgery/Intervention CABG: Date: 2009 RISK FACTORS Height: 70, Weight: 143 DIMENSIONS LVDd4.3 (3.8-5.7cm)LA (2D) (1.9-4.0cm)Aortic Root3.7 (2.0-3.7cm) LVDs3.0 (2.5-4.0cm)LA (MM) (1.9-4.0cm)Aortic Cusp Exc2.0 (1.5-2.0cm) EF (%) 58.0 (55-70%)Rt. Atrium (1.9-4.0cm)Asc. Aorta cm IVSd1.2 (0.7-1.1cm)RV (D) (1.8-2.4cm) PWd1.2 (0.7-1.1cm) Mitral Valve MitralMitral Stenosis E wave0.51m/sMV Mean GR.mmHg A wave0.79m/sMV Peak GR.mmHg E/A ratio0.62D MVAcm2 DECEL [id number] 1/2 [id number] IVRTmsDop MVA3.00cm2 Aortic Valve Aortic ValveAortic Stenosis V10.95m/Elizabet Mean GR.4mmHg V21.38m/Elizabet Peak GR.8mmHg LVOT Diameter1.9 (1.8-2.4cm)Doppler AVA1.95cm2 AI P 1/2 Pzjn307.74ms Pulmonic Valve V20.99m/s Tricuspid Valve TR Velocity3.63m/s [id number] Other Information Technically limited study due to body habitus and patient position. Conclusion Normal left ventricular size and dimension. Normal left ventricular systolic function estimated ejec tion fraction of 55%. There is a grade 1 diastolic dysfunction. Normal right ventricular size and dimension. Normal right ventricular systolic function. Severely e levated right ventricular systolic pressure 70 mm of mercury Is mild dilatation of the left atrium. Normal-sized right atrium The aortic valve is mildly thickened and sclerotic, there is mild aortic valve regurgitation. Mitral valve appears mildly thickened there is mild mitral valve regurgitation. There is mild tricuspid valve regurgitation. The pulmonary valve is grossly normal. No pericardial effusion.
[2024-05-09] MEDS ORDERED: hydrALAZINE HCL 20 MG/ML VL IV PRN (17:15)
[2024-05-09] MEDS: PANTOPRAZOLE 40 MG TAB PO ONE (17:33)
[2024-05-09] MEDS: methylPREDNISolone SOD SUCC 40 MG/ML VL IV SCH (21:58)
[2024-05-10] VITALS (9 sets, daily range): BP systolic 118–136; BP diastolic 65–74; PULSE 67–78; RESP 16–18; TEMP 97.4–98.3; O2SAT 88–95
[2024-05-10] MEDS: PANTOPRAZOLE 40 MG TAB PO SCH (06:18)
[2024-05-10 07:00] LABS: Anion Gap 9 (5-15); Basophils # (auto) 0 10 ^3/uL (0-0.2); Basophils % (auto) 0.1 % (0.0-2.0); Calcium 9.3 mg/dL (8.7-10.4); Carbon Dioxide 22 mmol/L (20-31); Chloride 109 mmol/L (98-107); Eosinophils # (auto) 0 10 ^3/uL (0-0.8); Hematocrit 38.1 % (41.0-53.0); Hemoglobin 13.1 g/dL (13.5-17.5); Lymphocytes # (auto) 0.6 10 ^3/uL (0.4-5.4); Lymphocytes % (auto) 10.6 % (10.0-50.0); Mean Corpuscular Hemoglobin 31.5 pg (28.0-32.0); Mean Corpuscular Hgb Conc. 34.3 g/dL (32.0-36.0); Mean Corpuscular Volume 91.7 fL (80.0-100.0); Monocytes # (auto) 0.1 10 ^3/uL (0-1.3); Monocytes % (auto) 2.6 % (0.0-12.0); Neutrophils # (auto) 4.7 10 ^3/uL (1.6-8.6); Neutrophils % (auto) 86.7 % (37.0-80.0); Nucleated Red Blood Cells % 0.1 %; Platelet Count (auto) 324 10^3/uL (140-450); Potassium 5.1 mmol/L (3.5-5.1); Red Blood Cells 4.16 10^6/uL (4.5-5.90); Red Cell Distribution Width 13.5 % (11.8-14.3); Sodium 140 mmol/L (136-145); White Blood Cell 5.4 10^3/uL (4.4-10.8)
[2024-05-10 07:05] LABS: Glucose 143 mg/dL (74-106)
[2024-05-10 07:07] LABS: BUN/Creatinine Ratio 14.2 (10.0-20.0); Blood Urea Nitrogen 27 mg/dL (9-23)
[2024-05-10] MEDS: ASPirin-EC 81 mg tab PO SCH (09:34)
[2024-05-10] MEDS: ATORVASTATIN 20 MG TAB PO SCH (09:35)
[2024-05-10] MEDS: HEPARIN SODIUM (PORCINE) 5000 UNITS/ML 1ML VIAL SC SCH (09:40)
[2024-05-10] MEDS ORDERED: ENOXAPARIN SOD 40 MG/0.4 ML SYRINGE SC SCH (10:00)
--- NOTE | 2024-05-10 11:42 | DVHPNRES ---
Progress Note Date Seen: May 10, 2024 Resident Creating Document: ADILIA BOLIVAR RESIDENT Medical Necessity Reason Pt with a Central, PICC or Fol: No Subjective Review of Systems Patient is 84 years old male with past medical history of hypertension, hyperlipidemia, CAD, status post CABG x2 in 2009 in [facility], prediabetes, CKD, congestive heart failure, coronary artery disease came with a complaint of productive cough for 2 weeks. As per patient patient went to the primary care physician yesterday with a complaint of productive cough, yellowish in color for last 2 weeks associated shortness of breath and PCP the patient ER for further evaluation and care. Patient reported having worsening cough with yellowish sputum for last 2 weeks. Patient also reported some worsening short of breath which worsened with exertion. Patient's reported E can take only few steps and he gets short of breath. Patient also complained about feeling weak and tired lately. Denied any fever, chest pain, palpitation, acute leg swelling or joint pain, dysarthria. Initial lab workup revealed D-dimer 1.56, serum creatinine 1.84, GFR 36, HGB A1c 5.9, alkaline phosphatase 161, BNP 170, TSH 3.55, ABG 7.430, pCO2 29.7, bicarbonate 19.3. CXR revealed-Chronic fibrotic changes with probable superimposed multifocal airspace disease. CT chest revealed- Interstitial infiltrates in both bases and right middle lobe and lingula. Acute versus chronic disease can not be distinguished without comparison films. Sternal wire sutures in place.Compressed T6 and T8 without displacement. She also revealed bullous changes and fibrotic changes bilaterally. 2D revealed-Normal left ventricular size and dimension. Normal left ventricular systolic function estimated ejection fraction of 55%. There is a grade 1 diastolic dysfunction. Normal right ventricular size and dimension. Normal right ventricular systolic function. Severely elevated right ventricular systolic pressure 70 mm of mercury. mild dilatation of the left atrium. Normal-sized right atrium PMH-hypertension, hyperlipidemia, CAD, status post CABG x2 in 2009 in [facility], prediabetes, CKD, congestive heart failure, coronary artery disease PSH- CABG x2 in 2009, inguinal hernia repair Allergy- NKDA Personal History/ Social History- lives in a rental house, ex-smoker, ex alcoholic, no drug abuser Patient was seen today at the bedside. Patient shortness of breaths and cough Cardiovascular- deny acute chest pain or palpitation Gastrointestinal- denies any rectal bleeding, nausea or vomiting Musculoskeletal-denies acute joint swelling or tenderness or redness Neurological- denies acute dysarthria, dysphagia, change in vision Psychiatry- denies depression or SI or HI Skin- denies acute rash or purpura Patient was seen today for clinical evaluation. Labs and chart reviewed. Patient reported feeling better today but still cough going on. Patient tolerating physical therapy well. Patient was antibiotic ceftriaxone and azithromycin for pneumonia. Tolerating well.. Objective vital signs Vital Sign Date Time Temp Pulse Resp B/P (MAP) Pulse Ox O2 Delivery O2 Flow Rate FiO2 05/10/24 09:00 97.4 69 17 136/74 (94) 88 97.4 05/10/24 06:41 Room Air* 0 21 Total Intake and Output 05/09/24 05/09/24 05/10/24 15:00 23:00 07:00 Intake Total 300 ml 300 ml 300 ml Output Total 400 ml Balance 300 ml -100 ml 300 ml medications Current Medications Medications Dose Ordered Sig/Jen Route Start Time Stop Time Status Last Admin Dose Admin Sodium Chloride 10 ml Q8HR IV 05/08/24 22:00 05/10/24 06:18 10 ML Acetaminophen/ Hydrocodone Bitart 1 tab Q4HP PRN PO 05/08/24 21:00 Ondansetron HCl 4 mg Q4HP PRN IV 05/08/24 21:00 Nitroglycerin 0.4 mg Q5MINP PRN SL 05/08/24 21:00 Morphine Sulfate 2 mg Q30M PRN IV 05/08/24 21:00 Ceftriaxone Sodium 50 ml @ 100 mls/hr DAILY IV 05/09/24 10:00 05/10/24 09:34 100 MLS/HR Azithromycin 250 ml @ 125 mls/hr DAILY IV 05/09/24 10:00 05/10/24 09:35 125 MLS/HR Albuterol 2.5 mg Q4HPRN PRN NEB 05/09/24 09:00 Ipratropium [place] 0.5 mg Q4HPRN PRN NEB 05/09/24 09:00 Methylprednisolone Sodium Succinate 40 mg BID IV 05/09/24 22:00 05/10/24 09:35 40 MG Enoxaparin Sodium 40 mg DAILY SC 05/10/24 10:00 Cancel Pantoprazole Sodium 20 mg DAILY@0600 PO 05/10/24 06:00 05/10/24 06:18 20 MG Aspirin 81 mg DAILY PO 05/10/24 10:00 05/10/24 09:34 81 MG Atorvastatin Calcium 20 mg DAILY PO 05/10/24 10:00 05/10/24 09:35 20 MG Hydralazine HCl 10 mg Q6HP PRN IV 05/09/24 17:15 Heparin Sodium (Porcine) 5,000 units Q12HR SC 05/10/24 10:00 05/10/24 09:40 5,000 UNITS Examination General examination- awake, alert, oriented HEENT- PEERLA, no acute nasal discharge Cardiovascular- S1-S2 audible, rate and rhythm regular, no murmur Respiratory- lung crackles on the right lower lung field+ Gastrointestinal-nontender, bowel sound+. Nondistended Musculoskeletal-no acute joint swelling or tenderness or redness# Lower extremity- no leg edema Neurological- cranial nerves intact, no acute dysarthria or dysphagia Psychiatry- denies depression or SI or HI Skin- fragile skin laboratory and microbiology Laboratory Tests 05/10/24 06:27 Test 05/10/24 06:27 Range/Units Serum Glucose 143 H 74-106 mg/dL Problem List/Assessment/Plan Problem List/Assessment/Plan # pneumonia Gram-positive versus Gram-negative -tolerating antibiotic well, on room air, reports feeling better today but still some cough going on -continue ceftriaxone 1 g IV daily -continue azithromycin 500 mg IV daily -CXR revealed-Chronic fibrotic changes with probable superimposed multifocal airspace disease. CT chest revealed- Interstitial infiltrates in both bases and right middle lobe and lingula. Acute versus chronic disease can not be distinguished without comparison films.Sternal wire sutures in place.Compressed T6 and T8 without displacement. She also revealed bullous changes and fibrotic changes bilaterally. - #Acute exacerbation of COPD --tolerating antibiotic well, on room air, reports feeling better today but still some cough going on --CXR revealed-Chronic fibrotic changes with probable superimposed multifocal airspace disease. CT chest revealed- Interstitial infiltrates in both bases and right middle lobe and lingula. Acute versus chronic disease can not be distinguished without comparison films.Sternal wire sutures in place.Compressed T6 and T8 without displacement. She also revealed bullous changes and fibrotic changes bilaterally. --continue ceftriaxone 1 g IV daily -continue azithromycin 500 mg IV daily -continue methylprednisolone 40 mg IV b.i.d. #Bilateral pulmonary fibrosis with superimposed pneumonia ---CXR revealed-Chronic fibrotic changes with probable superimposed multifocal airspace disease. -CT chest revealed- Interstitial infiltrates in both bases and right middle lobe and lingula. Acute versus chronic disease can not be distinguished without comparison films.Sternal wire sutures in place.Compressed T6 and T8 without displacement. She also revealed bullous changes and fibrotic changes bilaterally. --continue ceftriaxone 1 g IV daily -continue azithromycin 500 mg IV daily #Hypertension -hydralazine 10 mg IV Q 6 H p.r.n. #Hyperlipidemia -continue aspirin 81 mg p.o. q.d. -continue atorvastatin 20 mg q.h.s. # CAD, status post CABG x2 --continue aspirin 81 mg p.o. q.d. -continue atorvastatin 20 mg q.h.s. # Pulmonary hypertension likely due to COPD - 2D revealed-Normal left ventricular size and dimension. N Severely elevated right ventricular systolic pressure 70 mm of mercury. mild dilatation of the left atrium. Normal-sized right atrium # Respiratory alkalosis -likely due to hyperventilation due to acute exacerbation of COPD -continue current management # AARON on CKD stage III B -avoid dehydration and nephrotoxic drugs # heart failure with preserved ejection fraction (HFpEF) -no acute exacerbation # prediabetes -monitor blood sugar Carbohydrate consistent diet Goals of care/advance care planning; FULL CODE; discussed with the patient PUD prophylaxis: Pantoprazole DVT prophylaxis: Lovenox Plan discussed with Dr. Gonzalez,,, nursing staff, patient Total time spent on patient evaluation, chart review, assessment and plan, discussion discussion >20 minutes Plan discussed with: Patient Plan discussed with: Patient, Other (RN) My Orders My Orders Orders - ADILIA BOLIVAR RESIDENT Procedure Category Date Status Time Methylprednisolone PHA 05/09/24 In Process Sod Succ (Solu Medrol 22:00 Pantoprazole Tablet PHA 05/10/24 In Process (Protonix Tablet) 06:00 Aspirin Enteric PHA 05/10/24 In Process Coated Tablet 10:00 Atorvastatin (Lipitor) PHA 05/10/24 In Process 10:00 Hydralazine Injection PHA 05/09/24 In Process (Apresoline Inject 17:15 Heparin Sodium PHA 05/10/24 In Process (Porcine) 10:00 Date of Service: May 10, 2024 Billing Provider: ELZBIETA GONZALEZ MD Common Visit Codes: [id number] INP/OBS CARE(HIGH) ADILIA BOLIVAR May 10, 2024 11:42 ELZBIETA GONZALEZ MD May 11, 2024 11:34
[2024-05-11] VITALS (7 sets, daily range): BP systolic 100–143; BP diastolic 61–76; PULSE 65–71; RESP 15–17; TEMP 97.7–98; O2SAT 96–98
[2024-05-11 07:04] LABS: Basophils # (auto) 0 10 ^3/uL (0-0.2); Eosinophils # (auto) 0 10 ^3/uL (0-0.8); Hematocrit 37.9 % (41.0-53.0); Lymphocytes # (auto) 0.5 10 ^3/uL (0.4-5.4); Lymphocytes % (auto) 4.6 % (10.0-50.0); Mean Corpuscular Hemoglobin 31.5 pg (28.0-32.0); Mean Corpuscular Hgb Conc. 34.4 g/dL (32.0-36.0); Mean Corpuscular Volume 91.3 fL (80.0-100.0); Monocytes # (auto) 0.4 10 ^3/uL (0-1.3); Monocytes % (auto) 3.5 % (0.0-12.0); Neutrophils # (auto) 9.7 10 ^3/uL (1.6-8.6); Neutrophils % (auto) 91.9 % (37.0-80.0); Platelet Count (auto) 351 10^3/uL (140-450); Red Blood Cells 4.15 10^6/uL (4.5-5.90); Red Cell Distribution Width 13.7 % (11.8-14.3); White Blood Cell 10.5 10^3/uL (4.4-10.8)
[2024-05-11 07:06] LABS: Chloride 109 mmol/L (98-107); Potassium 4.8 mmol/L (3.5-5.1); Sodium 141 mmol/L (136-145)
[2024-05-11 07:07] LABS: Anion Gap 9 (5-15); Carbon Dioxide 23 mmol/L (20-31)
[2024-05-11 07:08] LABS: Calcium 9.4 mg/dL (8.7-10.4)
[2024-05-11 07:12] LABS: BUN/Creatinine Ratio 17.6 (10.0-20.0); Blood Urea Nitrogen 36 mg/dL (9-23); Glucose 130 mg/dL (74-106)
[2024-05-11] MEDS ORDERED: PRED20TA2 PO (13:50)
[2024-05-11] MEDS ORDERED: PANT40T PO (13:50)
[2024-05-11] MEDS ORDERED: LEVO500T91 PO (13:50)
--- NOTE | 2024-05-11 14:00 | DVHDSRES ---
Discharge Summary Date of Admission Resident Creating Document: ADILIA BOLIVAR May 08, 2024 at 20:54 Date of Discharge: May 11, 2024 Admitting Diagnosis Acute hypoxic respiratory failure Wounds: No wounds present at this time. Labs/Diagnostic Data: Laboratory Results Test 05/11/24 06:15 05/09/24 06:05 05/09/24 04:04 05/08/24 17:50 White Blood Count 10.5 10^3/uL (4.4-10.8) Red Blood Count 4.15 10^6/uL (4.5-5.90) Hemoglobin 13.0 g/dL (13.5-17.5) Hematocrit 37.9 % (41.0-53.0) Mean Corpuscular Volume 91.3 fL (80.0-100.0) Mean Corpuscular Hemoglobin 31.5 pg (28.0-32.0) Mean Corpuscular Hemoglobin Concent 34.4 g/dL (32.0-36.0) Red Cell Distribution Width 13.7 % (11.8-14.3) Platelet Count 351 10^3/uL (140-450) Mean Platelet Volume 6.3 fL (6.9-10.8) Neutrophils (%) (Auto) 91.9 % (37.0-80.0) Lymphocytes (%) (Auto) 4.6 % (10.0-50.0) Monocytes (%) (Auto) 3.5 % (0.0-12.0) Eosinophils (%) (Auto) 0.0 % (0.0-7.0) Basophils (%) (Auto) 0.0 % (0.0-2.0) Neutrophils # (Auto) 9.7 10 ^3/uL (1.6-8.6) Lymphocytes # (Auto) 0.5 10 ^3/uL (0.4-5.4) Monocytes # (Auto) 0.4 10 ^3/uL (0-1.3) Eosinophils # (Auto) 0 10 ^3/uL (0-0.8) Basophils # (Auto) 0 10 ^3/uL (0-0.2) Nucleated Red Blood Cells 0.0 % Sodium Level 141 mmol/L (136-145) Potassium Level 4.8 mmol/L (3.5-5.1) Chloride Level 109 mmol/L (98-107) Carbon Dioxide Level 23 mmol/L (20-31) Anion Gap 9 (5-15) Blood Urea Nitrogen 36 mg/dL (9-23) Creatinine 2.05 mg/dL (0.700-1.30) Glomerular Filtration Rate Calc 32 mL/min (>90) BUN/Creatinine Ratio 17.6 (10.0-20.0) Serum Glucose 130 mg/dL (74-106) Calcium Level 9.4 mg/dL (8.7-10.4) Total Bilirubin 0.4 mg/dL (0.2-1.0) Aspartate Amino Transferase (AST) 12 U/L (13-40) Alanine Aminotransferase (ALT) < 9 U/L (7-40) Alkaline Phosphatase 123 U/L (46-116) Total Protein 6.8 g/dL (5.7-8.2) Albumin 3.8 g/dL (3.2-4.8) Influenza Type A Antigen Negative (Negative) Influenza Type B Antigen Negative (Negative) SARS-CoV-2 Antigen (Rapid) Negative (NEGATIVE) Troponin I High Sensitivity 7 ng/L (</=54) Test 05/08/24 16:41 05/08/24 15:08 Blood Gas Specimen Type Arterial Blood Gas Sample Site Right radial Blood Gas Patient Temperature 37.0 Arterial Blood Date Drawn [id number] Arterial Blood pH 7.430 (7.350-7.450) Arterial Blood Partial Pressure CO2 29.7 mmHg (35.0-48.0) Arterial Blood Partial Pressure O2 59.0 mmHg (83.0-108.0) Arterial Blood HCO3 19.3 mmol/L (21.0-28.0) Arterial Blood Oxygen Saturation 91.2 % (94.0-98.0) Arterial Blood Base Excess -3.7 mmol/L (-2.0-3.0) Arterial Blood Oxyhemoglobin 89.5 % (94.0-98.0) Arterial Blood Carboxyhemoglobin 1.5 % (0.5-1.5) Arterial Blood Methemoglobin 0.4 % (0.0-1.5) Joe Test Yes Blood Gas Total Hemoglobin 14.50 g/dL (13.5-17.5) Blood Gas Modality Room air FiO2 % 21.0 D-Dimer, Quantitative 1.56 mg/L FEU (0.0-0.49) Hemoglobin A1c 5.9 % A1C (<5.7) B-Type Natriuretic Peptide 170.51 pg/mL (0-100) Vitamin B12 Level 526 pg/mL (211-911) Vitamin D 25-Hydroxy 26.3 ng/mL (30.0-100) Thyroid Stimulating Hormone (TSH) 3.55 uIU/mL (0.55-4.78) Other Laboratory Tests 05/11/24 06:15 Brief Hx & Hospital Course: This is an 84 years old male with past medical history of hypertension, hyperlipidemia, CAD, status post CABG x2 in 2009 in [facility], prediabetes, CKD, congestive heart failure, coronary artery disease came with a complaint of productive cough for 2 weeks. As per patient patient went to the primary care physicianbefore coming to the ED, with a complaint of productive cough, yellowish in color for last 2 weeks associated shortness of breath and PCP refer the patient to the ER for further evaluation and care. Patient reported having worsening cough with yellowish sputum for the last 2 weeks. Patient also reported some worsening short of breath which worsened with exertion. Patient also complained about feeling weak and tired lately. Denied any fever, chest pain, palpitation, acute leg swelling or joint pain, dysarthria. Initial lab workup revealed D-dimer 1.56, serum creatinine 1.84, GFR 36, HGB A1c 5.9, alkaline phosphatase 161, BNP 170, TSH 3.55, ABG 7.430, pCO2 29.7, bicarbonate 19.3. CXR revealed-Chronic fibrotic changes with probable superimposed multifocal airspace disease. CT chest revealed- Interstitial infiltrates in both bases and right middle lobe and lingula. There was also bullous changes and fibrotic changes bilaterally.Echo showed an LVEF of 55% with normal cardiac valves and no pericardial effusion. There was severely elevated right ventricular systolic pressure 70 mm of mercury. The patient was started on IV azithromycin, ceftriaxone, methylprednisolone 40 mg IV b.i.d. and respiratory therapy with albuterol and ipratropium med nebs. Today, patient denied chest pain, shortness of breath, fever or chills. The patient has no additional complaints at this time. On my examination there are very mild crackles on right lung base but otherwise grossly clear without wheezes. Patient is currently saturating 97% on room air. We will discharge the patient home on levofloxacin 500 mg q.d. for seven days, prednisone 20 mg q.d. for five days and pantoprazole 40 mg q.d. for 10 days. Patient agrees and understands with the plan. ROS Constitutional: Denies weight loss, fever and chills. HEENT: Denies changes in vision and hearing. Respiratory: Denies shortness of breath and cough Cardiovascular: Denies chest discomfort or palpitations GI: Denies abdominal pain, nausea, vomiting and diarrhea. : Denies dysuria and urinary frequency. Musculoskeletal: Denies myalgias and joint pain Skin: Denies rash and pruritus. Neurological: Denies dizziness, headache, vision or hearing problems Physical Examination General: Patient alert and oriented in person, place and time. Patient following commands. HEENT: Normocephalic, atraumatic, moist mucous membranes Respiratory/pulmonary: There are very mild crackles on right lung base but rest of lung sharma are grossly clear with no wheezes at this time. Patient is saturating 97% on room air. Cardiovascular: Normal heart sounds S1 and S2 with no associated murmurs Abdomen: Abdomen nondistended, there is no pain to palpation in any of the abdominal quadrants, no palpable masses. Extremities: There is no peripheral edema present at the lower extremities. Peripheral Pulses: 3+ Radial (R). 3+ Radial (L). 3+ Dorsalis pedis (R). 3+ Dorsalis pedis(L) Skin: No rashes or pruritus, there is no sacral edema present at this time. Neurological: Intact cranial nerves with no focal neurologic deficits Consults/Reason for consult N/A Operations or Procedures CHEST RADIOGRAPH Indication:cough sob Technique: Single frontal view of the chest was obtained COMPARISON: EKG on DOS: 04/20/22, EKG on DOS: 04/20/22, EKG on DOS: 04/20/22 FINDINGS: Lines and Tubes: Median sternotomy. Lungs: Multifocal airspace disease. Chronic fibrotic changes. Pleura: No effusion. No pneumothorax. Cardiomediastinal contours: Cardiomegaly. Moderate hiatal hernia. Bones: Unremarkable IMPRESSION: Chronic fibrotic changes with probable superimposed multifocal airspace disease. Clinical correlation advised. Procedure: CT CHEST WITHOUT CONTRAST Reason for study/Clinical History: cough sob elevated D dimer Comparison Study: None available at time of dictation. Exam Date: 05/08/2024 04:26 PM TECHNIQUE: Multidetector CT of the chest was performed from the lung apices to the upper abdomen without the use of intravenous contract. Axial, coronal and sagittal multiplanar reformats were performed. Radiation Dose Information: CT Dose: CTDI volume is 7.41 mGy. Dose-length product is 252.96 mGy*cm The dose indicators for CT are the volume Computed Tomography (CT) Dose Index (CTDIvol) and the Dose Length Product (DLP), and are measured in units of mGy and mGy-cm, respectively. These indicators are not patient dose, but values generated from the CT scanner acquisition factors. The report includes radiation exposure data for exposures received during this examination. FINDINGS: Lower neck: Normal thyroid. Lungs: Bilateral pulmonary fibrosis. Worse in the right middle and lower lobe and left lower lobe. There are no prior studies for comparison so acute versus chronic disease can not be distinguished. Heart/Vascular Structures: Normal heart size. No pericardial effusion. Lymph Nodes: No adenopathy Pleura: No pleural effusion or significant pneumothorax. Musculoskeletal: No acute osseous abnormality. Sternal wire sutures in place. Compressed T6 and T8. Soft tissues: Normal. Upper abdomen: Moderately large hiatal hernia IMPRESSION: 1. Interstitial infiltrates in both bases and right middle lobe and lingula. Acute versus chronic disease can not be distinguished without comparison films. 2. Sternal wire sutures in place. 3. Compressed T6 and T8 without displacement. Condition at Discharge: Good Final Diagnosis/Problems List Acute hypoxic respiratory failure likely due to pneumonia Gram-positive/ Gram-negative Acute exacerbation of COPD Bilateral pulmonary fibrosis with superimposed pneumonia Hypertension Hyperlipidemia CAD, status post CABG x2 Pulmonary hypertension likely due to COPD AARON on CKD stage III B heart failure with preserved ejection fraction (HFpEF) prediabetes Discharge Disposition: Home Discharge Instruct/Medications Diet: Regular Activity: No Restrictions, As Tolerated Follow Up/Referral: F/U with his PCP in 1 week Medications: Levofloxacin 500 mg q.d. for seven days Prednisone 20 mg q.d. for five days Pantoprazole 40 mg q.d. for 10 days Discharge Statement: "Patient was advised to return to the ER or call 911 if any headaches, dizziness, shortness of breath, chest pain, abdominal pain, bleeding, fevers, or worsening of medical condition. Patient was counseled about treatment plan, medications, possible side effects, patientverbalized understanding. All questions were answered to the best of my ability. This discharge took greater then 30 minutes in planning, reviewing documentation, counseling the patient, and discussing with other team members." ASSESSMENT ASSESSMENT Assessment Acute hypoxic respiratory failure likely due to pneumonia Gram-positive versus Gram-negative Acute exacerbation of COPD Bilateral pulmonary fibrosis with superimposed pneumonia Hypertension Hyperlipidemia CAD, status post CABG x2 Pulmonary hypertension likely due to COPD AARON on CKD stage III B heart failure with preserved ejection fraction (HFpEF) prediabetes TREMAINE ADAMES RESIDENT May 11, 2024 14:00
== END 2024-05-11 18:00 | disposition home or self-care (01) | DRG 177 ==
LOC: ER 14:08 → TELE 20:54 → EAST 20:56
PROVIDERS: ADMIT Internal Medicine Geriatric Medicine; ATTEND Internal Medicine Geriatric Medicine
DX: J15.69 Pneumonia due to other Gram-negative bacteria (principal); J96.01 Acute respiratory failure with hypoxia; E87.3 Alkalosis; J44.1 Chronic obstructive pulmonary disease with (acute) exacerbation; J44.0 Chronic obstructive pulmonary disease with (acute) lower respiratory infection; I13.0 Hypertensive heart and chronic kidney disease with heart failure and stage 1 through stage 4 chronic kidney disease, or unspecified chronic kidney disease; I50.30 Unspecified diastolic (congestive) heart failure; N17.9 Acute kidney failure, unspecified; Z20.822 Contact with and (suspected) exposure to COVID-19; J15.9 Unspecified bacterial pneumonia; I25.10 Atherosclerotic heart disease of native coronary artery without angina pectoris; E78.5 Hyperlipidemia, unspecified; E55.9 Vitamin D deficiency, unspecified; I27.20 Pulmonary hypertension, unspecified; N18.32 Chronic kidney disease, stage 3b; E11.22 Type 2 diabetes mellitus with diabetic chronic kidney disease; Z95.1 Presence of aortocoronary bypass graft; Z87.891 Personal history of nicotine dependence; Z79.82 Long term (current) use of aspirin; J84.10 Pulmonary fibrosis, unspecified; R73.03 Prediabetes
CPT/HCPCS: 36415; 36600; 71045; 71250; 80048; 80053; 82306; 82607; 82805; 83036; 83880; 84443; 84484; 85025; 85379; 87426; 87804; 93306; 97110; 97116; 97163; 97530; G0378

== ENCOUNTER 2024-05-21 10:16 | Inpatient (IN) | payer OTHER, MEDICAID ==
[2024-05-21] VITALS (7 sets, daily range): BP systolic 91; BP diastolic 54; PULSE 76–109; RESP 14–19; TEMP 98.4; O2SAT 93–100
[~2024-05-21] VITALS: Ht 170.2 cm; Wt 65.2 kg
[~2024-05-21 10:16] MED LIST changes: +ASPI-543 PO; +ATOR20TA PO; +HYDR-4902 PO; +LEVO500T91 PO; +NITR0.4S29 SL; +PANT40T PO; +PRED20TA2 PO; +TRAZ-227 PO
--- NOTE | 2024-05-21 10:33 | ED.PDOC ---
SOB-HPI HPI Comments HPI: Poor Historian. 84-year-old male presents to the emergency department for evaluation of chronic shortness of breath and chronic nonspecific cough for at least one year. Patient complains of some generalized weakness recently with associated lower abdominal pain to palpation only. Denies any other acute symptoms. Vitals T: 98.1F RR: 20 HR: 98 BP: 128/77 R arm O2: 98% on RA PMHx: Hypertension, hyperlipidemia, CHF, prediabetic, CAD PSHx:CABG X2 times Social hx: denies tobacco use, denies ETOH use, denies drug use Meds: unknown Allergies: NKDA REVIEW OF SYSTEMS: CONSTITUTIONAL: Denies acute: fever, diaphoresis, chills, HEAD: Denies acute: headache, photophobia Eyes: Denies acute: Double vision, vision loss, eye pain, eye discharge. EARS: Denies acute: tinnitus, hearing loss, ear discharge, ear pain, THROAT: Denies acute: sore throat, swelling, difficulty swallowing , pain with swallowing, change in voice. NECK: Denies acute: neck pain, neck swelling, stiff neck. HEART: Denies acute : chest pain, palpitations, LUNGS: Denies acute: wheezing, hemoptysis ABDOMEN: Denies acute: Nausea, Vomiting, diarrhea, melena , hematemesis, hematochezia SKIN: Denies acute: rash, redness, lesions, itchiness. EXTREMITIES: Denies acute: calf pain, numbness, tingling, weakness, denies pain in extremity. Denies acute: Low back pain. Neuro: Denies acute: focal neurological deficit, motor or sensory focal neurological deficit, tremors, seizure like activity, confusion, dizziness, change in mental status, loss of bowel or bladder function, cauda equina like symptoms. : Denies acute: dysuria, hematuria, flank pain, increase in urinary frequency. PSYCH: Denies acute: hallucination, suicidal ideation, homicidal ideation. PHYSICAL EXAM: General: no acute distress, awake and alert. Head: normocephalic, atraumatic. Neck: supple, trachea is midline, no swelling. Throat: Normal phonation. Eyes:, no erythema, no purulent discharge, no proptosis, no icterus. Heart: regular rate, regular rhythm, no significant murmur appreciated. Lungs: no apparent respiratory distress, Able to speak in full sentences. No wheezing, mild bilateral rhonchi, no crackles. No stridors Abdomen: Lower abdomen tender to palpation, non distended, soft, no guarding, no rebound, + bowel sounds. Neuro: Awake, Alert, oriented to name, self, situation, follows commands GCS=15. Speech is normal. Skin: no petechia, no purpura, no cyanosis, non-pale, not jaundice. Lower extremities: --no - Pitting edema no deformity, no focal swelling, no calf TTP. Makes eye contact. moves all four extremities. Face: no apparent facial droop. Ambulating in the ED independently. Chief Complaint: Shortness of Breath Time Seen by MD: 10:44 Primary Care Provider: JUAQUIN Reviewed notes: Allergies Information Source: Patient Mode of Arrival: Ambulatory Brought in by: self Past Medical History PAST MEDICAL HISTORY: Angina, CAD, CHF, HTN Surgical History: CABG Family History Family History: Unknown Social History Smoker: Non-Smoker Alcohol: Denies ETOH Use Drugs: Denies Drug Use Lives In: Home Was a procedure done? Was a procedure done?: No Differential Dx Differential Diagnosis: Other (DDx include ACS, unstable angina, anxiety, PE, pneumothroax, neoplasm, cardiac ischemia, COPD, asthma, CHF, pleural effusion, tobacco abuse, pneumonia, hypoxia, hypercapnia, anemia., infection/sepsis., pulmonary edema. Asthma, Cardiac tamponade, infection.) X-Ray, Labs, Meds, VS Vital Signs Date Time Temp Pulse Resp B/P (MAP) Pulse Ox O2 Delivery O2 Flow Rate FiO2 05/21/24 15:07 101 17 109/70 (83) 96 05/21/24 15:02 109/70 05/21/24 13:31 98.1 80 19 109/78 (88) 95 98.1 05/21/24 11:00 97.5 90 19 95/56 (69) 98 97.5 05/21/24 11:00 90 19 98 Room Air* 0 21 05/21/24 10:29 98.1 98 20 128/77 (94) 98 05/21/24 10:29 95 Lab Test 05/21/24 14:27 05/21/24 14:02 05/21/24 12:02 05/21/24 11:18 Range/Units Blood Gas Specimen Type Arterial Blood Gas Sample Site Right radial Blood Gas Patient Temperature 37.0 Arterial Blood Date Drawn [id number] Arterial Blood pH 7.438 7.350-7.450 Arterial Blood Partial Pressure CO2 28.0 L 35.0-48.0 mmHg Arterial Blood Partial Pressure O2 71.3 L 83.0-108.0 mmHg Arterial Blood HCO3 18.5 L 21.0-28.0 mmol/L Arterial Blood Oxygen Saturation 94.1 94.0-98.0 % Arterial Blood Base Excess -4.2 L -2.0-3.0 mmol/L Arterial Blood Oxyhemoglobin 92.3 L 94.0-98.0 % Arterial Blood Carboxyhemoglobin 1.6 H 0.5-1.5 % Arterial Blood Methemoglobin 0.3 0.0-1.5 % Joe Test Yes Blood Gas Total Hemoglobin 14.40 13.5-17.5 g/dL Blood Gas Modality Room air FiO2 % 21.0 Troponin I High Sensitivity 10 10 </=54 ng/L Urine Color Yellow Yellow Urine Clarity Clear Clear Urine pH 5.5 5.0-9.0 Urine Specific [place] 1.014 1.001-1.035 Urine Protein 2+ H Negative Urine Ketones Negative Negative Urine Blood Negative Negative /uL Urine Nitrite Negative Negative Urine Bilirubin Negative Negative Urine Urobilinogen Normal Negative mg/dL Urine Leukocyte Esterase Negative Negative /uL Urine RBC 1 0 - 3 /hpf Urine WBC 1 0 - 3 /hpf Urine Squamous Epithelial Cells None seen <5 /hpf Urine Bacteria None seen None Seen /hpf Urine Mucus Few None Seen Urine Glucose Normal Normal mg/dL Test 05/21/24 10:58 Range/Units White Blood Count 9.0 4.4-10.8 10^3/uL Red Blood Count 4.55 4.5-5.90 10^6/uL Hemoglobin 14.6 13.5-17.5 g/dL Hematocrit 41.9 41.0-53.0 % Mean Corpuscular Volume 92.1 80.0-100.0 fL Mean Corpuscular Hemoglobin 32.0 28.0-32.0 pg Mean Corpuscular Hemoglobin Concent 34.8 32.0-36.0 g/dL Red Cell Distribution Width 14.1 11.8-14.3 % Platelet Count 375 140-450 10^3/uL Mean Platelet Volume 6.3 L 6.9-10.8 fL Neutrophils (%) (Auto) 77.0 37.0-80.0 % Lymphocytes (%) (Auto) 13.7 10.0-50.0 % Monocytes (%) (Auto) 7.6 0.0-12.0 % Eosinophils (%) (Auto) 1.4 0.0-7.0 % Basophils (%) (Auto) 0.3 0.0-2.0 % Neutrophils # (Auto) 6.9 1.6-8.6 10 ^3/uL Lymphocytes # (Auto) 1.2 0.4-5.4 10 ^3/uL Monocytes # (Auto) 0.7 0-1.3 10 ^3/uL Eosinophils # (Auto) 0.1 0-0.8 10 ^3/uL Basophils # (Auto) 0 0-0.2 10 ^3/uL Nucleated Red Blood Cells 0.1 % Sodium Level 139 136-145 mmol/L Potassium Level 4.4 3.5-5.1 mmol/L Chloride Level 106 98-107 mmol/L Carbon Dioxide Level 25 20-31 mmol/L Anion Gap 8 5-15 Blood Urea Nitrogen 28 H 9-23 mg/dL Creatinine 2.11 H 0.700-1.30 mg/dL Glomerular Filtration Rate Calc 31 >90 mL/min BUN/Creatinine Ratio 13.3 10.0-20.0 Serum Glucose 92 74-106 mg/dL Lactic Acid Level 1.6 0.4-2.0 mmol/L Calcium Level 9.4 8.7-10.4 mg/dL Total Bilirubin 0.8 0.2-1.0 mg/dL Aspartate Amino Transferase (AST) 16 13-40 U/L Alanine Aminotransferase (ALT) 23 7-40 U/L Alkaline Phosphatase 131 H 46-116 U/L Troponin I High Sensitivity 10 </=54 ng/L B-Type Natriuretic Peptide 113.90 0-100 pg/mL Total Protein 7.3 5.7-8.2 g/dL Albumin 4.2 3.2-4.8 g/dL Lipase 40 12-53 U/L Current Medications Medications (Trade) Dose Ordered Sig/Jen Route Start Time Stop Time Status Last Admin Furosemide (Lasix Injection) 40 mg ONCE ONCE IV 05/21/24 14:15 05/21/24 14:16 DC 05/21/24 15:02 [place] [address] Ph: [phone] DIAGNOSTIC IMAGING Diagnostic Imaging Report : [id number] Signed PATIENT: GABRIELA AGUILAR ACCT: [id number] UNIT: [id number] : 1940 LOC: ER ROOM / BED: / AGE / SEX: 84 / M ADM STATUS: REG ER SERVICE 1031 ORDERING PHYSICIAN: WILMAN MOTLEY DO PROCEDURE(s): CXRP - CHEST PORTABLE REASON: SOB ABD PAIN WEAK ORDER NUMBER(s): [id number], ACCESSION NUMBER(s): [id number] CHEST RADIOGRAPH Indication: SOB ABD PAIN WEAK Technique: Single frontal view of the chest was obtained COMPARISON: XY CHEST PORTABLE on DOS: 05/08/24, EKG on DOS: 04/20/22, EKG on DOS: 04/20/22 FINDINGS: Lines and Tubes: Median sternotomy. Lungs: Increased interstitial prominence Pleura: No effusion. No pneumothorax. Cardiomediastinal contours: Cardiomegaly. Large hiatal hernia. Bones: Unremarkable IMPRESSION: Pulmonary vascular congestion ATED BY: EDVIN FREEMAN MD DICTATED DATE/TIME: 05/21/24 105 SIGNED BY: EDVIN FREEMAN MD SIGNED DATE/TIME: 05/21/24 105 CC: [place] [address] Ph: [phone] DIAGNOSTIC IMAGING Diagnostic Imaging Report : [id number] Signed PATIENT: GABRIELA AGUILAR ACCT: [id number] UNIT: [id number] : 1940 LOC: ER ROOM / BED: / AGE / SEX: 84 / M ADM STATUS: REG ER SERVICE 1031 ORDERING PHYSICIAN: WILMAN MOTLEY DO PROCEDURE(s): ABPL - CT AB PEL WO CON-NO ORAL OR IV REASON: SOB ABD PAIN WEAK ORDER NUMBER(s): [id number], ACCESSION NUMBER(s): [id number] Exam: CT CT AB PEL WO CON-NO ORAL OR IV History: SOB ABD PAIN WEAK Comparison Study: CT CT AB PEL WO CON-NO ORAL OR IV on DOS: 10/26/22 Technique: Multidetector spiral CT of the abdomen and pelvis was performed from lung bases to pubic symphysis. Imaging was performed without IV contrast. Axial, coronal and sagittal multiplanar reformats were obtained from the axial data set by the technologist. Radiation dose : Abdomen/Pelvis: CTDIvol 6 mGy, DLP 374.03 mGy*cm. Findings: Limited by motion. Evaluation of solid organs is limited due to lack of intravenous contrast use. Lung Bases: Fibrotic lung disease in the visualized lung bases. Liver: The liver is normal in size. No focal lesions. Gallbladder and biliary Tree: Unremarkable Spleen: Unremarkable Pancreas: The pancreas is grossly normal in appearance. Adrenal Glands: Unremarkable Kidneys: Kidneys are grossly normal without calculi or hydronephrosis. Bladder: Grossly unremarkable for degree of distention. Bowel: Large sliding-type hiatal hernia. Small bowel and colon are normal in caliber and distribution. Normal appendix is visualized in the right lower quadrant without findings of appendicitis. Ascites: Absent Lymphadenopathy: No mesenteric, retroperitoneal or periportal lymphadenopathy. Abdominal wall and Mesentery: Unremarkable. Vasculature: The visualized abdominal aorta is normal in size and caliber. There is extensive atherosclerotic calcification of the aorta and its branches. Evaluation of abdominal and pelvic vessels is limited due to lack of intravenous contrast. Pelvic Organs: Prostate is enlarged. Musculoskeletal: Compression deformity T8 and T11. IMPRESSION: 1. Limited by significant motion artifact. Fibrotic lung disease in the visualized lung bases. Large sliding-type hiatal hernia. No definite acute finding in the abdomen and pelvis. Compression deformity of multiple thoracic vertebral bodies. This can be further evaluated with MRI of the thoracic spine. Marked prostatomegaly. If concern persists consider further evaluation with CT of the abdomen and pelvis with contrast. Radiation optimization: All CT scans at this facility use at least one of these dose optimization techniques: Automated exposure control mA and/or kV adjustment per patient size (includes targeted exams where dose is matched to clinical indication) or iterative reconstruction. HS:Y ATED BY: NATHANIEL BAHENA MD DICTATED DATE/TIME: 05/21/24 1110 SIGNED BY: NATHANIEL BAHENA MD SIGNED DATE/TIME: 05/21/24 1110 CC: Time of 1ST Reevaluation: 19:07 Reevaluation 1ST: Improved Patient Education/Counseling: Diagnosis, Treatment Family Education/Counseling: No Family Present Comments Patient presented with the above HPI.--dyspnea---workup was initiated. patient was found with the above mentioned diagnosis. Patient was given: Lasix Patient ED course and VS have been stabilized. Patient has been reassessed in the ED and remained in a stable condition. Pertinent incidental findings were discussed with the patient and/or family. Patient/family voices understanding and is agreeable with plan. Patient has been observed in the ED adequate length of time to insure improvement/stability. patient was admitted to the medicine team for further evaluation and treatment of their presentation. All the reports of any imaging studies that were ordered by myself were reviewed by myself. Departure 1 Departure Time of Disposition: 15:27 Impression: Primary Impression: Dyspnea Additional Impressions: Hypoxemia Generalized weakness Disposition: ADMITTED INPATIENT Admit to: [facility] Condition: Guarded Discharged With: Self Critical Care Note Critical Care Time?: No Heart Score Heart Score: Heart Score Response (Comments) Value History Moderate Suspicious 1 EKG Normal 0 Age >65 2 Risk Factors 1 or 2 risk factors 1 Troponin Normal limit 0 Total 4 I personally scribed for WILMAN MOTLEY DO ([email or web address]) on 05/21/24 at 10:33. Electronically submitted by Mono Navraro ([employer]). I personally scribed for WILMAN MOTLEY DO ([email or web address]) on 05/21/24 at 10:45. Electronically submitted by Mono Navarro ([employer]). I personally scribed for WILMAN MOTLEY DO ([email or web address]) on 05/21/24 at 11:36. Electronically submitted by Mono Navarro ([employer]). I personally scribed for WILMAN MOTLEY DO ([email or web address]) on 05/21/24 at 14:54. Electronically submitted by Mono Navarro ([employer]). WILMAN MOTLEY DO May 21, 2024 10:33
--- NOTE | 2024-05-21 10:58 | DVH ---
CHEST RADIOGRAPH Indication: SOB ABD PAIN WEAK Technique: Single frontal view of the chest was obtained COMPARISON: XY CHEST PORTABLE on DOS: 05/08/24, EKG on DOS: 04/20/22, EKG on DOS: 04/20/22 FINDINGS: Lines and Tubes: Median sternotomy. Lungs: Increased interstitial prominence Pleura: No effusion. No pneumothorax. Cardiomediastinal contours: Cardiomegaly. Large hiatal hernia. Bones: Unremarkable IMPRESSION: Pulmonary vascular congestion
--- NOTE | 2024-05-21 11:13 | DVH ---
Exam: CT CT AB PEL WO CON-NO ORAL OR IV History: SOB ABD PAIN WEAK Comparison Study: CT CT AB PEL WO CON-NO ORAL OR IV on DOS: 10/26/22 Technique: Multidetector spiral CT of the abdomen and pelvis was performed from lung bases to pubic symphysis. Imaging was performed without IV contrast. Axial, coronal and sagittal multiplanar reform ats were obtained from the axial data set by the technologist. Radiation dose : Abdomen/Pelvis: CTDIvol 6 mGy, DLP 374.03 mGy*cm. Findings: Limited by motion. Evaluation of solid organs is limited due to lack of intravenous contrast use. Lung Bases: Fibrotic lung disease in the visualized lung bases. Liver: The liver is normal in size. No focal lesions. Gallbladder and biliary Tree: Unremarkable Spleen: Unremarkable Pancreas: The pancreas is grossly normal in appearance. Adrenal Glands: Unremarkable Kidneys: Kidneys are grossly normal without calculi or hydronephrosis. Bladder: Grossly unremarkable for degree of distention. Bowel: Large sliding-type hiatal hernia. Small bowel and colon are normal in caliber and distribution . Normal appendix is visualized in the right lower quadrant without findings of appendicitis. Ascites: Absent Lymphadenopathy: No mesenteric, retroperitoneal or periportal lymphadenopathy. Abdominal wall and Mesentery: Unremarkable. Vasculature: The visualized abdominal aorta is normal in size and caliber. There is extensive athero sclerotic calcification of the aorta and its branches. Evaluation of abdominal and pelvic vessels is limited due to lack of intravenous contrast. Pelvic Organs: Prostate is enlarged. Musculoskeletal: Compression deformity T8 and T11. IMPRESSION: 1. Limited by significant motion artifact. Fibrotic lung disease in the visualized lung bases. Larg e sliding-type hiatal hernia. No definite acute finding in the abdomen and pelvis. Compression defor mity of multiple thoracic vertebral bodies. This can be further evaluated with MRI of the thoracic sp ine. Marked prostatomegaly. If concern persists consider further evaluation with CT of the abdomen an d pelvis with contrast. Radiation optimization: All CT scans at this facility use at least one of these dose optimization dae hniques: Automated exposure control mA and/or kV adjustment per patient size (includes targeted exams where dose is matched to clinical indication) or iterative reconstruction. HS:Y
[2024-05-21 11:19] LABS: Urine Bacteria None Seen /hpf (None Seen)
[2024-05-21 11:37] LABS: Alanine Aminotransferase 23 U/L (7-40); Albumin 4.2 g/dL (3.2-4.8); Alkaline Phosphatase 131 U/L (46-116); Anion Gap 8 (5-15); Aspartate Aminotransferase 16 U/L (13-40); BUN/Creatinine Ratio 13.3 (10.0-20.0); Bilirubin, Total 0.8 mg/dL (0.2-1.0); Blood Urea Nitrogen 28 mg/dL (9-23); Calcium 9.4 mg/dL (8.7-10.4); Carbon Dioxide 25 mmol/L (20-31); Chloride 106 mmol/L (98-107); Glucose 92 mg/dL (74-106); Potassium 4.4 mmol/L (3.5-5.1); Sodium 139 mmol/L (136-145); Total Protein 7.3 g/dL (5.7-8.2)
[2024-05-21 11:39] LABS: Basophils # (auto) 0 10 ^3/uL (0-0.2); Basophils % (auto) 0.3 % (0.0-2.0); Eosinophils # (auto) 0.1 10 ^3/uL (0-0.8); Eosinophils % (auto) 1.4 % (0.0-7.0); Hematocrit 41.9 % (41.0-53.0); Hemoglobin 14.6 g/dL (13.5-17.5); Lymphocytes # (auto) 1.2 10 ^3/uL (0.4-5.4); Lymphocytes % (auto) 13.7 % (10.0-50.0); Mean Corpuscular Hgb Conc. 34.8 g/dL (32.0-36.0); Mean Corpuscular Volume 92.1 fL (80.0-100.0); Monocytes # (auto) 0.7 10 ^3/uL (0-1.3); Monocytes % (auto) 7.6 % (0.0-12.0); Neutrophils # (auto) 6.9 10 ^3/uL (1.6-8.6); Nucleated Red Blood Cells % 0.1 %; Platelet Count (auto) 375 10^3/uL (140-450); Red Blood Cells 4.55 10^6/uL (4.5-5.90); Red Cell Distribution Width 14.1 % (11.8-14.3)
[2024-05-21 12:00] LABS: Urine Blood Negative /uL (Negative); Urine Clarity Clear (Clear); Urine Color Yellow (Yellow); Urine Mucus FEW (None Seen); Urine Protein, UAD 2+ (Negative); Urine Specific Gravity 1.014 (1.001-1.035); Urine Urobilinogen Normal (Negative); Urine WBC 1 /hpf (0 - 3); Urine pH 5.5 (5.0-9.0)
[2024-05-21 12:27] LABS: Lipase 40 U/L (12-53)
[2024-05-21 14:36] LABS: Base Excess -4.2 mmol/L (-2.0-3.0)
[2024-05-21] MEDS: FUROSEMIDE 40 MG/4 ML VIAL IV ONE (15:02)
--- NOTE | 2024-05-21 16:16 | DVHHP2 ---
History of Present Illness Reason for Visit: BLE pain, abdominal pain, back pain, and chest tightness History of Present Illness Javier Akhtar is a 84YO M with pmHx of PNA, HTN, HLD, CAD, s/p CABG 2009, preDM, CKD, and CHF who presents to the ED for BLE pain, abdominal pain, back pain and chest tightness x 2 weeks. Patient reports he was hospitalized here on the 08 of May for the same reason. Patient reports he rents a room from a family and has a granddaughter nearby who helps with his care. Patient uses a cane for mobility. He denies fever, chills, nausea and vomiting. Cardiovascular: CAD, CHF, HTN Pulmonary: COPD, Pneumonia Renal/: Chronic renal failure Endocrine: Other (preDM) Past Surgical History: CABG Family History: None Smoke: Quit ALCOHOL: none Drugs: None Lives: Other Domestic Violence: Neg Review of Systems Constitutional: No: Fever, Chills, Sweats, Weakness, Malaise, Other Eyes: No: Pain, Vision change, Conjunctivae inflammation, Eyelid inflammation, Other, Redness ENT: No: Ear pain, Ear discharge, Nose pain, Nose discharge, Nose congestion, Mouth pain, Mouth swelling, Throat pain, Throat swelling, Other Respiratory: Other (chest tightness) Cardiovascular: No: Chest Pain, Palpitations, Orthopnea, Paroxysmal Noc. Dyspnea, Edema, Lt Headedness, Other Gastrointestinal: Abdominal Pain; No: Nausea, Vomiting, Diarrhea, Constipation, Melena, Hematochezia, Other Genitourinary: No Dysuria, No Frequency, No Incontinence, No Hematuria, No Retention, No Other Musculoskeletal: back pain, leg pain; No: other, neck pain, shoulder pain, arm pain, hand pain, foot pain Skin: No: Rash, Lesions, Jaundice, Bruising, Other Neurological: No: Weakness, Numbness, Incoordination, Change in speech, Confusion, Seizures, Other Allergies: Coded Allergies: NO KNOWN ALLERGIES (Unverified , 09/20/17) Exam Vital Signs Vital Signs Date Time Temp Pulse Resp B/P (MAP) Pulse Ox O2 Delivery O2 Flow Rate FiO2 05/21/24 15:07 101 17 109/70 (83) 96 05/21/24 13:31 98.1 98.1 05/21/24 11:00 Room Air* 0 21 General Appearance: Alert, Oriented X3, Cooperative, No acute distress HEENT: Atraumatic, PERRLA, EOMI, Mucous membr. moist/pink Respiratory: Clear to auscultation, Normal air movement Cardiovascular: Regular rate, Normal S1, Normal S2, No murmurs Abdominal: Soft Extremities: No clubbing, No cyanosis, No edema, Normal pulses, No tenderness/swelling Skin: No rashes, No breakdown, No significant lesion Neuro: Normal speech, Normal tone, Sensation intact Psych/Mental Status: Mental status NL, Mood NL Labs/Xrays Labs Test 05/21/24 14:27 05/21/24 14:02 05/21/24 11:18 05/21/24 10:58 Range/Units Blood Gas Specimen Type Arterial Blood Gas Sample Site Right radial Blood Gas Patient Temperature 37.0 Arterial Blood Date Drawn [id number] Arterial Blood pH 7.438 7.350-7.450 Arterial Blood Partial Pressure CO2 28.0 L 35.0-48.0 mmHg Arterial Blood Partial Pressure O2 71.3 L 83.0-108.0 mmHg Arterial Blood HCO3 18.5 L 21.0-28.0 mmol/L Arterial Blood Oxygen Saturation 94.1 94.0-98.0 % Arterial Blood Base Excess -4.2 L -2.0-3.0 mmol/L Arterial Blood Oxyhemoglobin 92.3 L 94.0-98.0 % Arterial Blood Carboxyhemoglobin 1.6 H 0.5-1.5 % Arterial Blood Methemoglobin 0.3 0.0-1.5 % Joe Test Yes Blood Gas Total Hemoglobin 14.40 13.5-17.5 g/dL Blood Gas Modality Room air FiO2 % 21.0 Troponin I High Sensitivity 10 </=54 ng/L Urine Color Yellow Yellow Urine Clarity Clear Clear Urine pH 5.5 5.0-9.0 Urine Specific [place] 1.014 1.001-1.035 Urine Protein 2+ H Negative Urine Ketones Negative Negative Urine Blood Negative Negative /uL Urine Nitrite Negative Negative Urine Bilirubin Negative Negative Urine Urobilinogen Normal Negative mg/dL Urine Leukocyte Esterase Negative Negative /uL Urine RBC 1 0 - 3 /hpf Urine WBC 1 0 - 3 /hpf Urine Squamous Epithelial Cells None seen <5 /hpf Urine Bacteria None seen None Seen /hpf Urine Mucus Few None Seen Urine Glucose Normal Normal mg/dL White Blood Count 9.0 4.4-10.8 10^3/uL Red Blood Count 4.55 4.5-5.90 10^6/uL Hemoglobin 14.6 13.5-17.5 g/dL Hematocrit 41.9 41.0-53.0 % Mean Corpuscular Volume 92.1 80.0-100.0 fL Mean Corpuscular Hemoglobin 32.0 28.0-32.0 pg Mean Corpuscular Hemoglobin Concent 34.8 32.0-36.0 g/dL Red Cell Distribution Width 14.1 11.8-14.3 % Platelet Count 375 140-450 10^3/uL Mean Platelet Volume 6.3 L 6.9-10.8 fL Neutrophils (%) (Auto) 77.0 37.0-80.0 % Lymphocytes (%) (Auto) 13.7 10.0-50.0 % Monocytes (%) (Auto) 7.6 0.0-12.0 % Eosinophils (%) (Auto) 1.4 0.0-7.0 % Basophils (%) (Auto) 0.3 0.0-2.0 % Neutrophils # (Auto) 6.9 1.6-8.6 10 ^3/uL Lymphocytes # (Auto) 1.2 0.4-5.4 10 ^3/uL Monocytes # (Auto) 0.7 0-1.3 10 ^3/uL Eosinophils # (Auto) 0.1 0-0.8 10 ^3/uL Basophils # (Auto) 0 0-0.2 10 ^3/uL Nucleated Red Blood Cells 0.1 % Sodium Level 139 136-145 mmol/L Potassium Level 4.4 3.5-5.1 mmol/L Chloride Level 106 98-107 mmol/L Carbon Dioxide Level 25 20-31 mmol/L Anion Gap 8 5-15 Blood Urea Nitrogen 28 H 9-23 mg/dL Creatinine 2.11 H 0.700-1.30 mg/dL Glomerular Filtration Rate Calc 31 >90 mL/min BUN/Creatinine Ratio 13.3 10.0-20.0 Serum Glucose 92 74-106 mg/dL Lactic Acid Level 1.6 0.4-2.0 mmol/L Calcium Level 9.4 8.7-10.4 mg/dL Total Bilirubin 0.8 0.2-1.0 mg/dL Aspartate Amino Transferase (AST) 16 13-40 U/L Alanine Aminotransferase (ALT) 23 7-40 U/L Alkaline Phosphatase 131 H 46-116 U/L B-Type Natriuretic Peptide 113.90 0-100 pg/mL Total Protein 7.3 5.7-8.2 g/dL Albumin 4.2 3.2-4.8 g/dL Lipase 40 12-53 U/L CHEST RADIOGRAPH Indication: SOB ABD PAIN WEAK FINDINGS: Lines and Tubes: Median sternotomy. Lungs: Increased interstitial prominence Pleura: No effusion. No pneumothorax. Cardiomediastinal contours: Cardiomegaly. Large hiatal hernia. Bones: Unremarkable IMPRESSION: Pulmonary vascular congestion Exam: CT CT AB PEL WO CON-NO ORAL OR IV History: SOB ABD PAIN WEAK Findings: Limited by motion. Evaluation of solid organs is limited due to lack of intravenous contrast use. Lung Bases: Fibrotic lung disease in the visualized lung bases. Liver: The liver is normal in size. No focal lesions. Gallbladder and biliary Tree: Unremarkable Spleen: Unremarkable Pancreas: The pancreas is grossly normal in appearance. Adrenal Glands: Unremarkable Kidneys: Kidneys are grossly normal without calculi or hydronephrosis. Bladder: Grossly unremarkable for degree of distention. Bowel: Large sliding-type hiatal hernia. Small bowel and colon are normal in caliber and distribution. Normal appendix is visualized in the right lower q uadrant without findings of appendicitis. Ascites: Absent Lymphadenopathy: No mesenteric, retroperitoneal or periportal lymphadenopathy. Abdominal wall and Mesentery: Unremarkable. Vasculature: The visualized abdominal aorta is normal in size and caliber. There is extensive atherosclerotic calcification of the aorta and its branches. Evaluation of abdominal and pelvic vessels is limited due to lack of intravenous contrast. Pelvic Organs: Prostate is enlarged. Musculoskeletal: Compression deformity T8 and T11. IMPRESSION: 1. Limited by significant motion artifact. Fibrotic lung disease in the visualized lung bases. Large sliding-type hiatal hernia. No definite acute finding in the abdomen and pelvis. Compression deformity of multiple thoracic vertebral bodies. This can be further evaluated with MRI of the thoracic spine. Marked prostatomegaly. If concern persists consider further evaluation with CT of the abdomen and pelvis with contrast. Assessment/Plan Assessment/Plan Assessment: COPD exacerbation Acute on chronic kidney disease Cardiomegaly Hiatal hernia Prostatomegaly Hx of PNA Lung fibrosis Plan: Admit to tele Breathing txs PRN O2 IV and PO Abx IV steroids Diet as tolerated Trend troponin's AM labs CXR noted CT A/P noted Finasteride Home medications reconciled Discussed plan of care with patient and nurse Plan discussed with: Patient Problem List: (1) COPD exacerbation (2) Lung fibrosis (3) CKD (chronic kidney disease) stage 4, GFR 15-29 ml/min Date of Service: May 21, 2024 Billing Provider: ANUPAM DE SANTIAGO Common Visit Codes: [id number] INP/OBS CARE (MOD) ANUPAM DE SANTIAGO May 21, 2024 16:16
[2024-05-21] MEDS ORDERED: HYDROcodone-ACET 5/325MG TAB PO PRN (17:15)
[2024-05-21] MEDS ORDERED: ONDANSETRON HCL 4 MG/2 ML VIAL IV PRN (17:15)
[2024-05-21] MEDS ORDERED: methylPREDNISolone SOD SUCC 500 MG in SODIUM CHL 0.9% 100 ML IV ONE (17:15)
[2024-05-21] MEDS ORDERED: DOCUSATE SOD 100 MG CAP PO PRN (17:15)
[2024-05-21] MEDS ORDERED: MORPHINE SULFATE INJ 2 MG/ml SYRG IV PRN ×2 (17:15)
[2024-05-21] MEDS ORDERED: ACETAMINOPHEN 325 MG TAB PO PRN (17:15)
[2024-05-21] MEDS ORDERED: NITROGLYCERIN 0.4 MG SL TAB SL PRN (17:15)
[2024-05-21] MEDS: ALBUTEROL SULF 2.5 MG/0.5ML(0.5%) NEB SOLN NEB SCH (17:59)
--- NOTE | 2024-05-21 18:30 | ECG ---
[facility] Test Date: 2024-05-21 Test Time: 10:29:43 Pat Name: GABRIELA AGUILAR Department: ER Room: 0290T Gender: M [employer] M[employer] Operator: MAX : [id number] Requested By: WILMAN MOTLEY Order Number: [id number] Reading MD: Boni Solis Measurements Intervals [place] Rate: 95 P: 2 NE: 160 QRS: -36 QRSD: 105 T: 41 QT: 379 QTc: 477 Interpretive Statements Sinus rhythm Probable left atrial enlargement Left axis deviation RSR' in V1 or V2, probably normal variant Nonspecific T abnormalities, lateral leads Borderline prolonged QT interval Artifact in lead(s) I,II,III,aVR,aVL,aVF,V2 and baseline wander in lead(s) III,aVF Electronically Signed On 05-22-2024 14:16:14 PST by Boni Solis Please click the below link to view image of tracing.
[2024-05-21] MEDS: cefTRIAXone 1GM/50ML D5W 50 ML IV ONE (19:12)
[2024-05-21] MEDS: FINASTERIDE 5 MG TAB PO ONE (20:31)
[2024-05-21] MEDS: AMOXICILLIN TRIHYDRATE 250 MG CAP PO SCH (21:54)
[2024-05-21] MEDS: LACTULOSE 20Gm/30ML SOLN PO SCH (21:54)
[2024-05-21] MEDS ORDERED: TRAZ-228 PO (22:55)
[2024-05-21] MEDS ORDERED: ATOR40TA52 PO (22:58)
[2024-05-21] MEDS ORDERED: HYDR-4902 PO (22:58)
[2024-05-22] VITALS (16 sets, daily range): BP systolic 105–124; BP diastolic 61–73; PULSE 69–98; RESP 16–20; TEMP 97.8–98.3; O2SAT 96–100
[2024-05-22 05:07] LABS: Basophils # (auto) 0 10 ^3/uL (0-0.2); Basophils % (auto) 0.2 % (0.0-2.0); Eosinophils # (auto) 0.1 10 ^3/uL (0-0.8); Eosinophils % (auto) 1.3 % (0.0-7.0); Hemoglobin 12.4 g/dL (13.5-17.5); Lymphocytes # (auto) 1.1 10 ^3/uL (0.4-5.4); Lymphocytes % (auto) 14.4 % (10.0-50.0); Mean Corpuscular Hemoglobin 31.6 pg (28.0-32.0); Mean Corpuscular Hgb Conc. 34.5 g/dL (32.0-36.0); Mean Corpuscular Volume 91.8 fL (80.0-100.0); Monocytes # (auto) 0.7 10 ^3/uL (0-1.3); Monocytes % (auto) 8.6 % (0.0-12.0); Neutrophils % (auto) 75.5 % (37.0-80.0); Nucleated Red Blood Cells % 0.1 %; Platelet Count (auto) 274 10^3/uL (140-450); Red Blood Cells 3.93 10^6/uL (4.5-5.90); White Blood Cell 7.9 10^3/uL (4.4-10.8)
[2024-05-22 05:24] LABS: Alanine Aminotransferase 18 U/L (7-40); Albumin 3.6 g/dL (3.2-4.8); Alkaline Phosphatase 109 U/L (46-116); Anion Gap 10 (5-15); Aspartate Aminotransferase 14 U/L (13-40); BUN/Creatinine Ratio 12.6 (10.0-20.0); Blood Urea Nitrogen 32 mg/dL (9-23); Calcium 8.9 mg/dL (8.7-10.4); Carbon Dioxide 25 mmol/L (20-31); Chloride 106 mmol/L (98-107); Glucose 94 mg/dL (74-106); Potassium 4.2 mmol/L (3.5-5.1); Sodium 141 mmol/L (136-145)
[2024-05-22 05:25] LABS: Bilirubin, Total 0.5 mg/dL (0.2-1.0); Total Protein 6.2 g/dL (5.7-8.2)
[2024-05-22] MEDS: cefTRIAXone 1GM/50ML D5W 50 ML IV SCH (08:34)
[2024-05-22] MEDS: IPRATROPIUM BROM 0.5 MG/2.5ML INH SOL NEB SCH (10:22)
[2024-05-22] MEDS: DOXYCYCLINE 100MG/250ML 250 ML IV SCH (11:13)
[2024-05-22] MEDS: methylPREDNISolone SOD SUCC 40 MG/ML VL IV SCH ×2 (11:13→21:22)
[2024-05-22] MEDS: ASPirin-EC 81 mg tab PO SCH (11:14)
[2024-05-22] MEDS: FINASTERIDE 5 MG TAB PO SCH (11:14)
[2024-05-22] MEDS: PANTOPRAZOLE 40 MG TAB PO SCH (11:14)
[2024-05-22] MEDS: ATORVASTATIN 20 MG TAB PO SCH (11:14)
--- NOTE | 2024-05-22 13:48 | DVHPNRES ---
Progress Note Date Seen: May 22, 2024 Resident Creating Document: JHRayJGautamMARE RESIDENT Medical Necessity Reason Pt with a Central, PICC or Fol: No Subjective Review of Systems Patient is a 84-year-old male with a past medical history of hypertension, coronary artery disease status post CABG, CKD, recent hospitalisation for pneumonia came to the ED with the chief complaint of cough and shortness of breath for a few days before presentation. Patient reported that he was admitted to the hospital 2 weeks ago for a similar complaints and was diagnosed with pneumonia, received IV ABx in the hospital and was D/c on levofloxacin for 7 days. patient reported improvement in symptoms for a few days but again had cough with whitish yellow phelgm and shortness of breath. Patient denies fever, chillsm rigors , chest pain, palpitations. Chest X ray showed Right more than left lower lobe diffuse opacities . CT shows fibrotic lung disease in the lung bases. Past medical history: as per HPI Past surgical history: CABG Social history: patient denies smoking, alcohol, drug use Home medications: Aspirin, atorvastatin Review of systems Patient is seen and examined at the bedside. Patient is alert and oriented to time, place and person. Patient has cough with whitish-yellow expectoration. On O2 support at 2L/min. No chills, rigors or fever. Objective vital signs Vital Sign Date Time Temp Pulse Resp B/P (MAP) Pulse Ox O2 Delivery O2 Flow Rate FiO2 05/22/24 10:28 71 16 98 05/22/24 10:22 Nasal Cannula 2.0 05/22/24 10:22 28 05/22/24 09:00 98.0 119/66 (83) 98.0 Total Intake and Output 05/21/24 05/21/24 05/22/24 15:00 23:00 07:00 Intake Total 50 ml 600 ml Output Total 200 ml Balance 50 ml 400 ml medications Current Medications Medications Dose Ordered Sig/Jen Route Start Time Stop Time Status Last Admin Dose Admin Acetaminophen/ Hydrocodone Bitart 1 tab Q4HP PRN PO 05/21/24 17:15 Ondansetron HCl 4 mg Q4HP PRN IV 05/21/24 17:15 Docusate Sodium 100 mg BIDPRN PRN PO 05/21/24 17:15 Acetaminophen 650 mg Q6HP PRN PO 05/21/24 17:15 Morphine Sulfate 2 mg Q4HPRN PRN IV 05/21/24 17:15 Nitroglycerin 0.4 mg Q5MINP PRN SL 05/21/24 17:15 Morphine Sulfate 2 mg Q30M PRN IV 05/21/24 17:15 Aspirin 81 mg DAILY PO 05/22/24 10:00 05/22/24 11:14 81 MG Atorvastatin Calcium 20 mg DAILY PO 05/22/24 10:00 05/22/24 11:14 20 MG Lactulose 15 ml TID PO 05/21/24 22:00 05/22/24 13:09 15 ML Finasteride 5 mg DAILY PO 05/22/24 10:00 05/22/24 11:14 5 MG Ipratropium [place] 0.5 mg Q4HWA [facility] 05/22/24 10:00 05/22/24 10:22 0.5 MG Doxycycline Hyclate 250 ml @ 125 mls/hr Q12H IV 05/22/24 10:00 05/22/24 11:13 125 MLS/HR Methylprednisolone Sodium Succinate 40 mg BID IV 05/22/24 22:00 UNV Cefepime HCl 50 ml @ 12.5 mls/hr DAILY IV 05/23/24 10:00 UNV Famotidine 20 mg Q12HR IV 05/22/24 22:00 UNV Levalbuterol HCl 1.25 mg Q4HWA [facility] 05/22/24 14:00 UNV Examination Physical Examination Gen - no pallor, no icterus, no cyanosis, no clubbing, no LAD, no edema . Skin - Patients skin is warm and dry. HEENT - normocephalic, atraumatic, moist mucous membranes. Neck - full ROM, no LAD, no JVD. Pulmonary - B/L decreased breath sounds with B/L fine inspiratory crackles. no wheezing, no stridor. cardiovascular - normal S1,S2 heard. RUSB systolic murmur. peripheral pulses normal radial 2+, pedal 2+. capillary refill normal <2 secs. GI - soft abdomen without tenderness to palpation . no hepatospleenomegaly. Bowel sounds+ Neurological - Patient is A/O X 3 . Bilateral upper extremity strength 4/5, bilateral lower extremity strength 4/5, no facial droop, normal speech, no tremor, no sensory deficiets. laboratory and microbiology Test 05/22/24 12:58 Range/Units Serum Glucose Pending Microbiology Date/Time Source Procedure Growth Status 05/21/24 22:50 Nose MRSA Screen - Final Complete Problem List/Assessment/Plan Problem List/Assessment/Plan Assessment and Plan # Acute Hypoxic respiratory failure likely d/t pneumonia # Community acquired pneumonia likely d/t pneumonia ?Gram+/- ?atypical # Interstitial infiltrates in B/L lung bases ? idiopathic pulmonary fibrosis - ABG shows mixed metabolic acidosis with respiratory alkalosis - CXR shows B/L lower lobe diffuse opacities R>L - Chest CT 05/08 shows Interstitial infiltrates in both bases and right middle lobe and lingula. - MRSA negative - Sputum culture pending - patient is currently on 2L/min O2 - started on cefepime and doxycycline - On methylprednisolone 40mg BId IV - Levalbuterol and Ipratropium nebuliser q4hrs - physical therapy eval pending # AARON on CKD stage III likely hemodynamically mediated - Patient received high dose Steroid in the ER - Monitor serum creatinine and electrolytes # H/o CAD S/p CABG - on aspirin and atorvastatin # Constipation - on docusate - lactulose as needed Goals of care discussed with the patient and family for over 25 mins. Full code. Plan discussed with Plan discussed with: Patient, Daughter My Orders My Orders Orders - MARE HERNANDEZ RESIDENT Procedure Category Date Status Time Complete Blood Count LAB 05/22/24 In Process 09:02 Comprehensive LAB 05/22/24 In Process Metabolic Panel 09:02 Covid19 Antigen [place] LAB 05/22/24 Logged Rapid Influenza A&B LAB 05/22/24 Logged 09:02 Prothrombin Time W/ LAB 05/22/24 In Process INR 09:02 D-Dimer LAB 05/22/24 In Process 09:02 Urine Sodium LAB 05/22/24 Logged 09:10 Urine LAB 05/22/24 Logged Protein/Creatinine Methylprednisolone PHA 05/22/24 Logged Sod Succ (Solu Medrol 22:00 Cefepime 1gm/ 50ml PHA 05/23/24 Logged (Maxipime 1gm/50ml) 10:00 Famotidine Injection PHA 05/22/24 Logged (Pepcid Injection) 22:00 *Consult CONS 05/22/24 Transmitted / 11:47 Date of Service: May 22, 2024 Billing Provider: RABIA NUNEZ MD Common Visit Codes: [id number] INP/OBS CARE(HIGH) MARE HERNANDEZ RESIDENT May 22, 2024 13:48 RABIA NUNEZ MD May 27, 2024 00:01
[2024-05-22 13:56] LABS: Basophils # (auto) 0 10 ^3/uL (0-0.2); Basophils % (auto) 0.2 % (0.0-2.0); Eosinophils # (auto) 0.1 10 ^3/uL (0-0.8); Eosinophils % (auto) 0.8 % (0.0-7.0); Hematocrit 37.2 % (41.0-53.0); Hemoglobin 12.6 g/dL (13.5-17.5); Lymphocytes # (auto) 0.5 10 ^3/uL (0.4-5.4); Lymphocytes % (auto) 5.8 % (10.0-50.0); Mean Corpuscular Hemoglobin 31.3 pg (28.0-32.0); Mean Corpuscular Hgb Conc. 33.8 g/dL (32.0-36.0); Mean Corpuscular Volume 92.7 fL (80.0-100.0); Monocytes # (auto) 0.3 10 ^3/uL (0-1.3); Monocytes % (auto) 3.7 % (0.0-12.0); Neutrophils # (auto) 8.1 10 ^3/uL (1.6-8.6); Neutrophils % (auto) 89.5 % (37.0-80.0); Platelet Count (auto) 307 10^3/uL (140-450); Red Blood Cells 4.01 10^6/uL (4.5-5.90)
[2024-05-22] MEDS ORDERED: LEVALBUTEROL HCL 1.25 MG/3 ML NEB NEB SCH (14:00)
[2024-05-22 14:11] LABS: INR 1.24 (0.9-1.15); Prothrombin Time 12.9 sec (9.3-11.8)
[2024-05-22 14:13] LABS: Alanine Aminotransferase 17 U/L (7-40); Alkaline Phosphatase 115 U/L (46-116); Anion Gap 12 (5-15); Aspartate Aminotransferase 16 U/L (13-40); BUN/Creatinine Ratio 13.6 (10.0-20.0); Calcium 8.9 mg/dL (8.7-10.4); Carbon Dioxide 24 mmol/L (20-31); Chloride 103 mmol/L (98-107); Potassium 3.8 mmol/L (3.5-5.1); Sodium 139 mmol/L (136-145)
[2024-05-22 14:14] LABS: Bilirubin, Total 0.5 mg/dL (0.2-1.0); Total Protein 6.8 g/dL (5.7-8.2)
[2024-05-22 14:15] LABS: Blood Urea Nitrogen 30 mg/dL (9-23); Glucose 116 mg/dL (74-106)
[2024-05-22 14:39] LABS: Rapid Influenza A Negative (Negative); Rapid Influenza B Negative (Negative)
[2024-05-22] MEDS: LEVALBUTEROL HCL 1.25 MG/3 ML NEB NEB SCH (14:43)
[2024-05-22] MEDS: LEVALBUTEROL HCL 1.25 MG/3 ML NEB ONE (14:44)
[2024-05-22 14:52] LABS: COVID19 ANTIGEN SOFIA FIA NEGATIVE (NEGATIVE)
[2024-05-22] MEDS: CEFEPIME 1GM/ 50ML 50 ML IV SCH (15:41)
[2024-05-22 16:15] LABS: Protein, Urine 71.4 mg/dL (1-14)
[2024-05-22 16:17] LABS: Creatinine, Urine 72.52 mg/dL (30.0-125.0); Urine Protein/Creatinine Ratio 0.98
--- NOTE | 2024-05-22 18:17 | DVH ---
Bilateral lower extremity venous duplex Clinical History: elevated ddimer Comparison: None Technique: Duplex Doppler evaluation of the deep venous systems of both lower extremities from the common femora l veins to the popliteal veins including color Doppler and spectral/pulsed waveform analysis was perf ormed. Findings: RIGHT SIDE: The common femoral vein demonstrates appropriate compressibility and waveform variability. There is compressibility/patency of the great saphenous vein at the proximal thigh. The femoral vein demonstrates appropriate compressibility and waveform variability. The deep femoral vein demonstrates appropriate compressibility and waveform variability. The popliteal vein demonstrates appropriate compressibility and waveform variability. There is normal compressibility at the tibioperoneal trunk. LEFT SIDE: The common femoral vein demonstrates appropriate compressibility and waveform variability. There is compressibility/patency of the great saphenous vein at the proximal thigh. The femoral vein demonstrates appropriate compressibility and waveform variability. The deep femoral vein demonstrates appropriate compressibility and waveform variability. The popliteal vein demonstrates appropriate compressibility and waveform variability. There is normal compressibility at the tibioperoneal trunk. Impression: 1. No right or left femoropopliteal venous thrombosis. HS:Y
--- NOTE | 2024-05-22 20:42 | DVHINCON2 ---
Date of service: May 22, [address] Liu Reason for Consultation Acute hypoxic respiratory failure, pulmonary fibrosis History of Present Illness 84-year-old man history as noted below who presents with a chief complaint of shortness of breath and chronic cough for the last year. He has generalized weakness and notes some lower abdominal pain on palpation. He had a CT chest performed last admission that demonstrated bilateral pulmonary fibrosis suggestive of idiopathic pulmonary fibrosis, possibly chronic interstitial lung disease. He was unaware of any diagnosis. He was unable to provide any history. He was not have pulmonary function tests or other evaluation in the past. Pulmonary consultation is called due to acute hypoxic respiratory failure and pulmonary fibrosis. Review of systems: 14 point review of systems is negative unless otherwise noted above. Past medical history: Angina, CAD, CHF, hypertension Past surgical history: CAD status post CABG Medications: Reviewed Allergies: No known drug allergies. Family history: No family history of premature CAD. No family history of lung disease. Social history: Nonsmoker. No alcohol or illicit drug use. Lives at home. Family History: Patient reports no known family medical history. Allergies: Coded Allergies: NO KNOWN ALLERGIES (Unverified , 09/20/17) Home Meds Active Scripts Prednisone (Prednisone) 20 Mg Tab, 20 MG PO DAILY for 5 Days, #5 MG Prov:TREMAINE ADAMES RESIDENT 05/11/24 Pantoprazole Sodium Sesquihydr (Pantoprazole Sodium) 40 Mg Tab, 40 MG PO DAILY for 10 Days, #10 TAB Prov:INES HarrisonTREMAINE RESIDENT 05/11/24 Levofloxacin Hemihydrate (LEVOFLOXACIN) 500 Mg Tab, 1 TAB PO DAILY for 7 Days, #7 TAB Prov[facility] 05/11/24 Sodium Phosphates (FLEET ENEMA SIX PACK) Enema Yani, 1 BOX RE DAILY, #1 EA Prov:LINDA CHEEK PAC 10/26/22 Lactulose (Lactulose) 10 Gm/15 Ml Delfina, 10 GM PO TID, #225 ML Prov:LINDA CHEEK PAC 10/26/22 Omeprazole (Omeprazole Dr) 40 Mg Cap, 40 MG PO DAILY for 30 Days, #30 CAP Prov:GARRETT FULLER MD 04/20/22 Metoclopramide Hcl (Reglan) 10 Mg Tab, 10 MG PO BID for 10 Days, #20 TAB Prov:GARRETT FULLER MD 04/20/22 Albuterol Sulfate (VENTOLIN MDI) 90 Mcg Ih, 90 MCG IN BID for 15 Days, #1 INH Prov:GARRETT FULLER MD 04/20/22 Omeprazole (Omeprazole Dr) 40 Mg Cap, 40 MG PO DAILY for 30 Days, #30 CAP Prov:GARRETT FULLER MD 04/20/22 Metoclopramide Hcl (Reglan) 10 Mg Tab, 10 MG PO BID for 15 Days, #30 TAB Prov:GARRETT FULLER MD 04/20/22 Albuterol Sulfate (VENTOLIN MDI) 90 Mcg Ih, 90 MCG IN BID for 15 Days, #1 INH Prov:GARRETT FULLER MD 04/20/22 Reported Medications Hydrocodone-Acetaminophen (Hydrocodone Bitartrate/AC 5-325 mg) 1 Tab Tab, 1 TAB PO Q6HP, TAB 05/21/24 Atorvastatin Calcium (ATORVASTATIN CALCIUM) 40 Mg Tab, 1 TAB PO BID, #30 TAB 5 Refills 05/21/24 Trazodone Hcl (Trazodone Hcl) 100 Mg Tab, 50 MG PO HS, TAB 05/21/24 Nitroglycerin (NTROSTAT SUBLINGUAL) 0.4 Mg Sl, 0.4 MG SL PRN, TAB *MAY REPEAT EVERY 5 MINUTES X 3 TOTAL IF NO RELIEF, INITIATE ANALGESIC THERAPY. NOTIFY PHYSICIAN *Do not crush. 05/09/24 Aspirin (Aspir-Low) 81 Mg Tab, 81 MG PO DAILY for 30 Days, MG 05/09/24 Hydrocodone-Acetaminophen (Hydrocodone Bitartrate/AC 5-325 mg) 1 Tab Tab, 1 TAB PO, TAB 05/09/24 Atorvastatin Calcium (Lipitor) 20 Mg Tab, 1 TAB PO DAILY, #90 TAB 1 Refill 05/09/24 Trazodone Hcl (Trazodone Hcl) 50 Mg Tab, 50 MG PO, MG 05/09/24 Current Medications Current Medications Medications (Trade) Dose Ordered Sig/Jen Route PRN Reason Start Time Stop Time Status Last Admin Amoxicillin 500 mg Q8HR PO 05/21/24 22:00 05/22/24 09:12 DC 05/22/24 05:24 Ceftriaxone Sodium 50 ml @ 100 mls/hr DAILY@09 IV 05/22/24 09:00 05/22/24 11:47 DC 05/22/24 08:34 Methylprednisolone Sodium Succinate (Solu Medrol) 40 mg DAILY IV 05/22/24 10:00 05/22/24 11:47 DC 05/22/24 11:13 Aspirin (Ecotrin Enteric Coated Tablet) 81 mg DAILY PO 05/22/24 10:00 05/22/24 11:14 Atorvastatin Calcium (Lipitor) 20 mg DAILY PO 05/22/24 10:00 05/22/24 11:14 Lactulose 15 ml TID PO 05/21/24 22:00 05/22/24 20:04 DC 05/22/24 13:09 Pantoprazole Sodium (Protonix Tablet) 40 mg DAILY PO 05/22/24 10:00 05/22/24 11:47 DC 05/22/24 11:14 Finasteride (Proscar Tablet) 5 mg DAILY PO 05/22/24 10:00 05/22/24 11:14 Ipratropium [place] (Atrovent Medneb) 0.5 mg Q4HWA [facility] 05/22/24 10:00 05/22/24 18:51 Doxycycline Hyclate 250 ml @ 125 mls/hr Q12H IV 05/22/24 10:00 05/22/24 11:13 Methylprednisolone Sodium Succinate (Solu Medrol) 40 mg BID IV 05/22/24 22:00 Cefepime HCl 50 ml @ 12.5 mls/hr DAILY IV 05/22/24 15:00 05/22/24 15:41 Famotidine (Pepcid Injection) 20 mg HS IV 05/22/24 22:00 05/22/24 17:31 DC Levalbuterol HCl (Xopenex Medneb) 1.25 mg Q4HWA [facility] 05/22/24 14:00 05/22/24 14:33 DC Levalbuterol HCl (Xopenex Medneb) 0.625 mg Q4HWA [facility] 05/22/24 14:00 05/22/24 18:51 Famotidine (Pepcid Injection) 20 mg BID IV 05/22/24 22:00 Docusate Sodium (Colace Capsule) 100 mg BID PO 05/22/24 22:00 UNV Lactulose 30 ml BIDPRN PRN PO FOR CONSTIPATION 05/22/24 20:15 UNV Vital Signs Vital Signs Date Time Temp Pulse Resp B/P (MAP) Pulse Ox O2 Delivery O2 Flow Rate FiO2 05/22/24 18:59 98 20 98 05/22/24 18:51 Nasal Cannula* 2 28 05/22/24 17:00 98.3 124/73 (90) 98.3 Physical Exam Gen.: Patient lying in bed in no apparent distress. On supplemental oxygen. Head: Normocephalic, atraumatic Eyes: EOMI/PERRLA. Ears: Normal hearing. Normal anatomy. Neck/trachea: Trachea midline, supple. Nose: Normal external anatomy. Mouth: Moist mucous membranes. Chest: Decreased air entry bilaterally. No wheezing. Bilateral crackles. Cardio vascular: Positive S1, positive S2. Regular rate and rhythm. Abdomen: Positive bowel sounds in all 4 quadrants. Soft, non-tender, non- distended. : Deferred. Rectal: Deferred Skin: Warm, dry. Extremities: 2+ radial pulses bilaterally. No lower extremity edema. Neuro: Awake, alert, oriented x3. No gross motor or sensory deficits. Cranial nerves II through XII intact. Gait not assessed. Labs/Diagnostic Data Labs Test 05/22/24 15:40 05/22/24 14:00 05/22/24 12:58 05/22/24 11:29 Range/Units Urine Creatinine 72.52 30.0-125.0 mg/dL Urine Protein/Creatinine Ratio 0.98 Urine Sodium 77 40-220 mmol/L Urine Total Protein 71.4 H 1-14 mg/dL Influenza Type A Antigen Negative Negative Influenza Type B Antigen Negative Negative SARS-CoV-2 Antigen (Rapid) Negative NEGATIVE White Blood Count 9.0 4.4-10.8 10^3/uL Red Blood Count 4.01 L 4.5-5.90 10^6/uL Hemoglobin 12.6 L 13.5-17.5 g/dL Hematocrit 37.2 L 41.0-53.0 % Mean Corpuscular Volume 92.7 80.0-100.0 fL Mean Corpuscular Hemoglobin 31.3 28.0-32.0 pg Mean Corpuscular Hemoglobin Concent 33.8 32.0-36.0 g/dL Red Cell Distribution Width 14.0 11.8-14.3 % Platelet Count 307 140-450 10^3/uL Mean Platelet Volume 6.3 L 6.9-10.8 fL Neutrophils (%) (Auto) 89.5 H 37.0-80.0 % Lymphocytes (%) (Auto) 5.8 L 10.0-50.0 % Monocytes (%) (Auto) 3.7 0.0-12.0 % Eosinophils (%) (Auto) 0.8 0.0-7.0 % Basophils (%) (Auto) 0.2 0.0-2.0 % Neutrophils # (Auto) 8.1 1.6-8.6 10 ^3/uL Lymphocytes # (Auto) 0.5 0.4-5.4 10 ^3/uL Monocytes # (Auto) 0.3 0-1.3 10 ^3/uL Eosinophils # (Auto) 0.1 0-0.8 10 ^3/uL Basophils # (Auto) 0 0-0.2 10 ^3/uL Nucleated Red Blood Cells 0.0 % Prothrombin Time 12.9 H 9.3-11.8 sec Prothrombin Time INR 1.24 H 0.9-1.15 D-Dimer, Quantitative 2.36 H 0.0-0.49 mg/L FEU Sodium Level 139 136-145 mmol/L Potassium Level 3.8 3.5-5.1 mmol/L Chloride Level 103 98-107 mmol/L Carbon Dioxide Level 24 20-31 mmol/L Anion Gap 12 5-15 Blood Urea Nitrogen 30 H 9-23 mg/dL Creatinine 2.21 H 0.700-1.30 mg/dL Glomerular Filtration Rate Calc 29 >90 mL/min BUN/Creatinine Ratio 13.6 10.0-20.0 Serum Glucose 116 H 74-106 mg/dL Calcium Level 8.9 8.7-10.4 mg/dL Total Bilirubin 0.5 0.2-1.0 mg/dL Aspartate Amino Transferase (AST) 16 13-40 U/L Alanine Aminotransferase (ALT) 17 7-40 U/L Alkaline Phosphatase 115 46-116 U/L Total Protein 6.8 5.7-8.2 g/dL Albumin 4.0 3.2-4.8 g/dL Lactic Acid Level 1.9 0.4-2.0 mmol/L Test 05/21/24 14:27 05/21/24 14:02 05/21/24 11:18 05/21/24 10:58 Range/Units Blood Gas Specimen Type Arterial Blood Gas Sample Site Right radial Blood Gas Patient Temperature 37.0 Arterial Blood Date Drawn [id number] Arterial Blood pH 7.438 7.350-7.450 Arterial Blood Partial Pressure CO2 28.0 L 35.0-48.0 mmHg Arterial Blood Partial Pressure O2 71.3 L 83.0-108.0 mmHg Arterial Blood HCO3 18.5 L 21.0-28.0 mmol/L Arterial Blood Oxygen Saturation 94.1 94.0-98.0 % Arterial Blood Base Excess -4.2 L -2.0-3.0 mmol/L Arterial Blood Oxyhemoglobin 92.3 L 94.0-98.0 % Arterial Blood Carboxyhemoglobin 1.6 H 0.5-1.5 % Arterial Blood Methemoglobin 0.3 0.0-1.5 % Joe Test Yes Blood Gas Total Hemoglobin 14.40 13.5-17.5 g/dL Blood Gas Modality Room air FiO2 % 21.0 Troponin I High Sensitivity 10 </=54 ng/L Urine Color Yellow Yellow Urine Clarity Clear Clear Urine pH 5.5 5.0-9.0 Urine Specific Delia 1.014 1.001-1.035 Urine Protein 2+ H Negative Urine Ketones Negative Negative Urine Blood Negative Negative /uL Urine Nitrite Negative Negative Urine Bilirubin Negative Negative Urine Urobilinogen Normal Negative mg/dL Urine Leukocyte Esterase Negative Negative /uL Urine RBC 1 0 - 3 /hpf Urine WBC 1 0 - 3 /hpf Urine Squamous Epithelial Cells None seen <5 /hpf Urine Bacteria None seen None Seen /hpf Urine Mucus Few None Seen Urine Glucose Normal Normal mg/dL B-Type Natriuretic Peptide 113.90 0-100 pg/mL Lipase 40 12-53 U/L Microbiology Date/Time Source Procedure Growth Status 05/21/24 22:50 Nose MRSA Screen - Final Complete Assessment Impression: Acute hypoxic respiratory failure PaO2 71.3 mmHg. 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 Compensated. Metabolic acidosis with respiratory compensation. Influenza type a and B negative. COVID-19 rapid negative. MRSA nares negative Prior CT chest 05/08/2024 reviewed: Bilateral pulm fibrosis with pre-disposition in the bases. Bronchiectasis. Compression fractures May be a candidate for Nintendanib or Pirfenidone as outpatient due to IPF. Echo report reviewed 05/09/24: Severe elevation of RVSP 70 mmHg. LVEF 55%. Grade I diastolic dysfunction. Supplemental oxygen 2 LPM via NC Keep O2 saturation above 92%. Bronchodilators IV steroids course, transition to PO prednisone course as tolerated Antibiotics course Avoid azithromycin due to bronchiectasis and interstitial lung disease to avoid resistance in the event of mycobacterium avium intracellulare. Monitor renal function due to acute kidney injury Monitor electrolytes. Supplement as necessary. Monitor ins and outs GI prophylaxis-Pepcid DVT prophylaxis Pt will need the following outpatient: Rheumatoid factor, LAYLA, Anti CCP IgM/IgG. High resolution CT chest with 1 mm slices. Pulmonary function tests 6 minutes walk test Prognosis: Poor given multiple comorbidities. Rest of plan per hospitalist and other consultants. Thank you Dr. Liu for allowing me to participate in this patient's care. Further recommendations will depend on patient's clinical course. Please do not hesitate to contact me if you have any questions or concerns. This medical document was created using an electronic medical record system with [employer] dictation system. Although this document has been carefully reviewed, there may still be some phonetic and typographical errors. These areas are purely typographical due to imperfections of the software programs, and do not reflect any compromise in the patient's medical care. Plan discussed with: Patient, Other (MD Dr Noe Sweeney) DEB CASILLAS MD May 22, 2024 20:42
[2024-05-22] MEDS: FAMOTIDINE (10MG/ML) 2ML VL IV SCH (21:21)
[2024-05-22] MEDS ORDERED: FAMOTIDINE (10MG/ML) 2ML VL IV SCH (22:00)
[2024-05-22] MEDS: DOCUSATE SOD 100 MG CAP PO SCH (23:20)
[2024-05-23] VITALS (19 sets, daily range): BP systolic 98–132; BP diastolic 63–73; PULSE 61–103; RESP 17–22; TEMP 97.2–98.8; O2SAT 91–100
[2024-05-23 06:21] LABS: Basophils # (auto) 0 10 ^3/uL (0-0.2); Eosinophils # (auto) 0 10 ^3/uL (0-0.8); Hematocrit 36.2 % (41.0-53.0); Hemoglobin 12.4 g/dL (13.5-17.5); Lymphocytes # (auto) 0.4 10 ^3/uL (0.4-5.4); Lymphocytes % (auto) 4.5 % (10.0-50.0); Mean Corpuscular Hemoglobin 31.5 pg (28.0-32.0); Mean Corpuscular Hgb Conc. 34.3 g/dL (32.0-36.0); Mean Corpuscular Volume 91.9 fL (80.0-100.0); Monocytes # (auto) 0.2 10 ^3/uL (0-1.3); Monocytes % (auto) 2.3 % (0.0-12.0); Neutrophils # (auto) 7.5 10 ^3/uL (1.6-8.6); Neutrophils % (auto) 93.2 % (37.0-80.0); Nucleated Red Blood Cells % 0.1 %; Platelet Count (auto) 266 10^3/uL (140-450); Red Blood Cells 3.93 10^6/uL (4.5-5.90); White Blood Cell 8.1 10^3/uL (4.4-10.8)
[2024-05-23 06:35] LABS: Anion Gap 9 (5-15); Carbon Dioxide 24 mmol/L (20-31); Chloride 105 mmol/L (98-107); Potassium 4.8 mmol/L (3.5-5.1); Sodium 138 mmol/L (136-145)
[2024-05-23 06:37] LABS: Calcium 9.3 mg/dL (8.7-10.4)
[2024-05-23 06:41] LABS: BUN/Creatinine Ratio 14.5 (10.0-20.0)
[2024-05-23 06:47] LABS: Blood Urea Nitrogen 32 mg/dL (9-23); Glucose 152 mg/dL (74-106)
[2024-05-23] MEDS: LACTULOSE 20Gm/30ML SOLN PO PRN (13:51)
[2024-05-23] MEDS: SODIUM CHLORIDE 0.9% 500 ML IV ONE (16:24)
--- NOTE | 2024-05-23 17:22 | DVHPNRES ---
Progress Note Date Seen: May 23, 2024 Resident Creating Document: LINDAJGautamMARE RESIDENT Medical Necessity Reason Pt with a Central, PICC or Fol: No Subjective Review of Systems Patient is a 84-year-old male with a past medical history of hypertension, coronary artery disease status post CABG, CKD, recent hospitalisation for pneumonia came to the ED with the chief complaint of cough and shortness of breath for a few days before presentation. Patient reported that he was admitted to the hospital 2 weeks ago for a similar complaints and was diagnosed with pneumonia, received IV ABx in the hospital and was D/c on levofloxacin for 7 days. patient reported improvement in symptoms for a few days but again had cough with whitish yellow phelgm and shortness of breath. Patient denies fever, chillsm rigors , chest pain, palpitations. Chest X ray showed Right more than left lower lobe diffuse opacities . CT shows fibrotic lung disease in the lung bases. Past medical history: as per HPI Past surgical history: CABG Social history: patient denies smoking, alcohol, drug use Home medications: Aspirin, atorvastatin Review of systems Patient is seen and examined at the bedside. Patient is alert and oriented to time, place and person. Patient has cough without expectoration. On O2 support at 2L/min in the morning but has been weaned off O2 support. No chills, rigors or fever. reported mild muscle aches in the proximal medial lower extremities. Creatine kinase negative Objective vital signs Vital Sign Date Time Temp Pulse Resp B/P (MAP) Pulse Ox O2 Delivery O2 Flow Rate FiO2 05/23/24 15:16 77 18 98 05/23/24 15:10 Room Air* 0 21 05/23/24 13:00 97.2 114/66 (82) 97.2 Total Intake and Output 05/22/24 05/22/24 05/23/24 15:00 23:00 07:00 Intake Total 250 ml 1250 ml 675 ml Output Total 1150 ml 500 ml Balance 250 ml 100 ml 175 ml medications Current Medications Medications Dose Ordered Sig/Jen Route Start Time Stop Time Status Last Admin Dose Admin Acetaminophen/ Hydrocodone Bitart 1 tab Q4HP PRN PO 05/21/24 17:15 Ondansetron HCl 4 mg Q4HP PRN IV 05/21/24 17:15 Acetaminophen 650 mg Q6HP PRN PO 05/21/24 17:15 Morphine Sulfate 2 mg Q4HPRN PRN IV 05/21/24 17:15 Nitroglycerin 0.4 mg Q5MINP PRN SL 05/21/24 17:15 Morphine Sulfate 2 mg Q30M PRN IV 05/21/24 17:15 Aspirin 81 mg DAILY PO 05/22/24 10:00 05/23/24 10:34 81 MG Atorvastatin Calcium 20 mg DAILY PO 05/22/24 10:00 05/23/24 10:34 20 MG Finasteride 5 mg DAILY PO 05/22/24 10:00 05/23/24 10:35 5 MG Ipratropium [place] 0.5 mg Q4HWA [facility] 05/22/24 10:00 05/23/24 15:10 0.5 MG Doxycycline Hyclate 250 ml @ 125 mls/hr Q12H IV 05/22/24 10:00 05/23/24 10:34 125 MLS/HR Methylprednisolone Sodium Succinate 40 mg BID IV 05/22/24 22:00 05/23/24 10:34 40 MG Cefepime HCl 50 ml @ 12.5 mls/hr DAILY IV 05/22/24 15:00 05/23/24 13:37 12.5 MLS/HR Levalbuterol HCl 0.625 mg Q4HWA [facility] 05/22/24 14:00 05/23/24 15:10 0.625 MG Famotidine 20 mg BID IV 05/22/24 22:00 05/23/24 10:34 20 MG Docusate Sodium 100 mg BID PO 05/22/24 22:00 05/23/24 10:34 100 MG Lactulose 30 ml BIDPRN PRN PO 05/22/24 20:15 05/23/24 13:51 30 ML Examination Physical Examination Gen - no pallor, no icterus, no cyanosis, no clubbing, no LAD, no edema . Skin - Patients skin is warm and dry. HEENT - normocephalic, atraumatic, moist mucous membranes. Neck - full ROM, no LAD, no JVD. Pulmonary - B/L decreased breath sounds with B/L fine inspiratory crackles R>L. no wheezing, no stridor. cardiovascular - normal S1,S2 heard. RUSB systolic murmur. peripheral pulses normal radial 2+, pedal 2+. capillary refill normal <2 secs. GI - soft abdomen without tenderness to palpation . no hepatospleenomegaly. Bowel sounds+ Neurological - Patient is A/O X 3 . Bilateral upper extremity strength 4/5, bilateral lower extremity strength 4/5, no facial droop, normal speech, no tremor, no sensory deficiets. laboratory and microbiology Laboratory Tests 05/23/24 05:49 Test 05/23/24 05:49 Range/Units Serum Glucose 152 H 74-106 mg/dL Microbiology Date/Time Source Procedure Growth Status 05/22/24 11:12 Sputum Gram Stain Pending Resulted 05/22/24 11:12 Sputum Respiratory Culture - Preliminary Resulted 05/21/24 22:50 Nose MRSA Screen - Final Complete Problem List/Assessment/Plan Problem List/Assessment/Plan Assessment and Plan # Acute Hypoxic respiratory failure likely d/t pneumonia # Community acquired pneumonia likely d/t pneumonia ?Gram+/- ?atypical # Interstitial infiltrates in B/L lung bases ? idiopathic pulmonary fibrosis - ABG shows mixed metabolic acidosis with respiratory alkalosis - CXR shows B/L lower lobe diffuse opacities R>L - Chest CT 05/08 shows Interstitial infiltrates in both bases and right middle lobe and lingula. - MRSA negative - Sputum culture pending - patient is currently on 2L/min O2 - started on cefepime and doxycycline - On methylprednisolone 40mg BID IV - Levalbuterol and Ipratropium nebulizer q4hrs - physical therapy eval. pending - patient will be weaned of O2 support. - Follow up in the outpatient clinic with Dr Pineda for further workup of Chronic interstitial lung disease/idiopathic pulmonary fibrosis. # AARON on CKD stage III likely hemodynamically mediated - Patient received high dose Steroid in the ER - Monitor serum creatinine and electrolytes - AARON improving # elevated D-dimer - Wells score < 4 - low-moderate risk of PE - Lower extremity venous duplex negative - CT angio chest contraindicated as of now d/t decreased renal function # H/o CAD S/p CABG - on aspirin and atorvastatin # Constipation - on docusate - lactulose as needed Goals of care discussed with the patient and family for 20 mins: Full code. Plan discussed with Plan discussed with: Patient, Other (RN ( Ivette )) My Orders My Orders Orders - MARE HERNANDEZ RESIDENT Procedure Category Date Status Time Famotidine Injection PHA 05/22/24 In Process (Pepcid Injection) 22:00 Docusate Sodium PHA 05/22/24 In Process Capsule (Colace 22:00 Lactulose Oral PHA 05/22/24 In Process 20:15 Pt Request For Service PT 05/22/24 Logged 20:07 Discontinue Tele GERI 05/23/24 In Process 09:41 Transfer Orders XFER 05/23/24 Transmitted 09:41 Addendum Addendum Addendum I was physically present for the renee portions of the service provided to patient by THE RESIDENT. I have reviewed the documentation, discussed the case with resident and agree with the resident's documentation except as noted. Also the patient's clinical case was discussed with the patient's nurse. This medical document was created using an electronic medical record system with computerized dictation system. Although this document has been carefully reviewed, there might still be some phonetic and typographical errors. These areas are purely typographical due to imperfections of the software programs, and do not reflect any compromise in the patient's medical care. Late signature. Date of Service: May 23, 2024 Billing Provider: KEVIN MILES MD Common Visit Codes: 64401-[id number] INP/OBS CARE(HIGH) Secondary Visit Codes: 90728-[id number] CARE PLAN 30 MINUTES (20 minutes) MARE HERNANDEZ RESIDENT May 23, 2024 17:22 KEVIN MILES MD May 25, 2024 14:13
--- NOTE | 2024-05-23 20:26 | DVHPN2 ---
Progress Note - Dictate Date Seen: May 23, 2024 Medical Necessity Reason Pt with a Central, PICC or Fol: No Subjective Patient seen and examined at bedside. Breathing comfortably on room air. Overnight events reviewed. vital signs Vital Sign Date Time Temp Pulse Resp B/P (MAP) Pulse Ox O2 Delivery O2 Flow Rate FiO2 05/23/24 19:38 97 18 99 05/23/24 19:31 Room Air* 0 21 05/23/24 17:00 98.5 109/73 (85) 98.5 Total Intake and Output 05/22/24 05/22/24 05/23/24 15:00 23:00 07:00 Intake Total 250 ml 1250 ml 675 ml Output Total 1150 ml 500 ml Balance 250 ml 100 ml 175 ml medications Current Medications Medications Dose Ordered Sig/Jen Route Start Time Stop Time Status Last Admin Dose Admin Acetaminophen/ Hydrocodone Bitart 1 tab Q4HP PRN PO 05/21/24 17:15 Ondansetron HCl 4 mg Q4HP PRN IV 05/21/24 17:15 Acetaminophen 650 mg Q6HP PRN PO 05/21/24 17:15 Morphine Sulfate 2 mg Q4HPRN PRN IV 05/21/24 17:15 Nitroglycerin 0.4 mg Q5MINP PRN SL 05/21/24 17:15 Morphine Sulfate 2 mg Q30M PRN IV 05/21/24 17:15 Aspirin 81 mg DAILY PO 05/22/24 10:00 05/23/24 10:34 81 MG Atorvastatin Calcium 20 mg DAILY PO 05/22/24 10:00 05/23/24 10:34 20 MG Finasteride 5 mg DAILY PO 05/22/24 10:00 05/23/24 10:35 5 MG Ipratropium [place] 0.5 mg Q4HWA NEB 05/22/24 10:00 05/23/24 19:34 0.5 MG Doxycycline Hyclate 250 ml @ 125 mls/hr Q12H IV 05/22/24 10:00 05/23/24 10:34 125 MLS/HR Methylprednisolone Sodium Succinate 40 mg BID IV 05/22/24 22:00 05/23/24 10:34 40 MG Cefepime HCl 50 ml @ 12.5 mls/hr DAILY IV 05/22/24 15:00 05/23/24 13:37 12.5 MLS/HR Levalbuterol HCl 0.625 mg Q4HWA NEB 05/22/24 14:00 05/23/24 19:34 0.625 MG Famotidine 20 mg BID IV 05/22/24 22:00 05/23/24 10:34 20 MG Docusate Sodium 100 mg BID PO 05/22/24 22:00 05/23/24 10:34 100 MG Lactulose 30 ml BIDPRN PRN PO 05/22/24 20:15 05/23/24 13:51 30 ML objective Gen.: Patient lying in bed in no apparent distress. Breathing on room air. Head: Normocephalic, atraumatic. Eyes: EOMI/PERRLA. Ears: Normal hearing. Normal anatomy. Neck/trachea: Trachea midline, supple. Nose: Normal external anatomy. Mouth: Moist mucous membranes. Chest: Decreased air entry bilaterally. No wheezing or rhonchi. Cardiovascular: Positive S1, positive S2. Regular rate and rhythm. Abdomen: Positive bowel sounds in all 4 quadrants. Soft, non-tender, non- distended. : Deferred. Rectal: Deferred. Skin: Warm, dry. Intact. Extremities: 2+ radial pulses bilaterally. No lower extremity edema. Neuro: Awake, alert, oriented x3. No gross motor or sensory deficits. Cranial nerves II through XII intact. Gait not assessed. laboratory and microbiology Laboratory Tests 05/23/24 05:49 Test 05/23/24 05:49 Range/Units Serum Glucose 152 H 74-106 mg/dL Assessment/Plan Impression: Acute hypoxic respiratory failure PaO2 71.3 mmHg. 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 (weaned from 2 LPM NC) No respiratory distress Patient with some cough. Continue bronchodilators Continue steroids Continue antibiotics Incentive spirometry Antitussive PRN for cough. Labs and imaging reviewed. Rest of plan as noted below. Plan: ABG reviewed. Compensated. Metabolic acidosis with respiratory compensation. Influenza type a and B negative. COVID-19 rapid negative. MRSA nares negative Prior CT chest 05/08/2024 reviewed: Bilateral pulm fibrosis with pre-disposition in the bases. Bronchiectasis. Compression fractures May be a candidate for Nintedanib or Pirfenidone as outpatient due to IPF. Echo report reviewed 05/09/24: Severe elevation of RVSP 70 mmHg. LVEF 55%. Grade I diastolic dysfunction. Supplemental oxygen PRN Keep O2 saturation above 92%. Bronchodilators IV steroids course, transition to PO prednisone course as tolerated Antibiotics course Avoid azithromycin due to bronchiectasis and interstitial lung disease to avoid resistance in the event of mycobacterium avium intracellulare. Monitor renal function due to acute kidney injury Monitor electrolytes. Supplement as necessary. Monitor ins and outs GI prophylaxis-Pepcid DVT prophylaxis Pt will need the following outpatient: Rheumatoid factor, LAYLA, Anti CCP IgM/IgG. High resolution CT chest with 1 mm slices. Pulmonary function tests 6 minutes walk test Prognosis: Poor given multiple comorbidities. Rest of plan per hospitalist and other consultants. Thank you Dr. Liu for allowing me to participate in this patient's care. Further recommendations will depend on patient's clinical course. Please do not hesitate to contact me if you have any questions or concerns. This medical document was created using an electronic medical record system with [employer] dictation system. Although this document has been carefully reviewed, there may still be some phonetic and typographical errors. These areas are purely typographical due to imperfections of the software programs, and do not reflect any compromise in the patient's medical care. Plan discussed with: Patient, Other (ALLA Pettit) DEB CASILLAS MD May 23, 2024 20:26
[2024-05-24] VITALS (19 sets, daily range): BP systolic 119–131; BP diastolic 70–81; PULSE 72–99; RESP 18–21; TEMP 97.3–97.8; O2SAT 90–97
[2024-05-24 08:15] LABS: Anion Gap 12 (5-15); Carbon Dioxide 21 mmol/L (20-31); Chloride 106 mmol/L (98-107); Potassium 4.4 mmol/L (3.5-5.1); Sodium 139 mmol/L (136-145)
[2024-05-24 08:16] LABS: Calcium 9.1 mg/dL (8.7-10.4)
[2024-05-24 08:21] LABS: BUN/Creatinine Ratio 18.1 (10.0-20.0)
[2024-05-24 08:33] LABS: Blood Urea Nitrogen 36 mg/dL (9-23); Glucose 115 mg/dL (74-106)
[2024-05-24] MEDS ORDERED: PRED20TA2 PO (13:58)
[2024-05-24] MEDS ORDERED: CEFP200T15 PO (13:58)
[2024-05-24] MEDS ORDERED: DOXY1CAP57 PO (13:58)
--- NOTE | 2024-05-24 16:57 | DVHDSRES ---
Discharge Summary Date of Admission Resident Creating Document: MARE HERNANDEZ RESIDENT May 21, 2024 at 17:01 Date of Discharge: May 25, 2024 (Planned discharge was on May 24, 2024 but no walker was provided) Admitting Diagnosis Shortness of breaths and cough Wounds: no wounds Labs/Diagnostic Data: Laboratory Results Test 05/24/24 07:11 05/23/24 05:49 05/22/24 15:40 05/22/24 14:00 Sodium Level 139 mmol/L (136-145) Potassium Level 4.4 mmol/L (3.5-5.1) Chloride Level 106 mmol/L (98-107) Carbon Dioxide Level 21 mmol/L (20-31) Anion Gap 12 (5-15) Blood Urea Nitrogen 36 mg/dL (9-23) Creatinine 1.99 mg/dL (0.700-1.30) Glomerular Filtration Rate Calc 33 mL/min (>90) BUN/Creatinine Ratio 18.1 (10.0-20.0) Serum Glucose 115 mg/dL (74-106) Calcium Level 9.1 mg/dL (8.7-10.4) White Blood Count 8.1 10^3/uL (4.4-10.8) Red Blood Count 3.93 10^6/uL (4.5-5.90) Hemoglobin 12.4 g/dL (13.5-17.5) Hematocrit 36.2 % (41.0-53.0) Mean Corpuscular Volume 91.9 fL (80.0-100.0) Mean Corpuscular Hemoglobin 31.5 pg (28.0-32.0) Mean Corpuscular Hemoglobin Concent 34.3 g/dL (32.0-36.0) Red Cell Distribution Width 14.0 % (11.8-14.3) Platelet Count 266 10^3/uL (140-450) Mean Platelet Volume 6.2 fL (6.9-10.8) Neutrophils (%) (Auto) 93.2 % (37.0-80.0) Lymphocytes (%) (Auto) 4.5 % (10.0-50.0) Monocytes (%) (Auto) 2.3 % (0.0-12.0) Eosinophils (%) (Auto) 0.0 % (0.0-7.0) Basophils (%) (Auto) 0.0 % (0.0-2.0) Neutrophils # (Auto) 7.5 10 ^3/uL (1.6-8.6) Lymphocytes # (Auto) 0.4 10 ^3/uL (0.4-5.4) Monocytes # (Auto) 0.2 10 ^3/uL (0-1.3) Eosinophils # (Auto) 0 10 ^3/uL (0-0.8) Basophils # (Auto) 0 10 ^3/uL (0-0.2) Nucleated Red Blood Cells 0.1 % Creatine Kinase 61 U/L (46-171) Urine Creatinine 72.52 mg/dL (30.0-125.0) Urine Protein/Creatinine Ratio 0.98 Urine Sodium 77 mmol/L (40-220) Urine Total Protein 71.4 mg/dL (1-14) Influenza Type A Antigen Negative (Negative) Influenza Type B Antigen Negative (Negative) SARS-CoV-2 Antigen (Rapid) Negative (NEGATIVE) Test 05/22/24 12:58 05/22/24 11:29 05/21/24 14:27 05/21/24 14:02 Prothrombin Time 12.9 sec (9.3-11.8) Prothrombin Time INR 1.24 (0.9-1.15) D-Dimer, Quantitative 2.36 mg/L FEU (0.0-0.49) Total Bilirubin 0.5 mg/dL (0.2-1.0) Aspartate Amino Transferase (AST) 16 U/L (13-40) Alanine Aminotransferase (ALT) 17 U/L (7-40) Alkaline Phosphatase 115 U/L (46-116) Total Protein 6.8 g/dL (5.7-8.2) Albumin 4.0 g/dL (3.2-4.8) Lactic Acid Level 1.9 mmol/L (0.4-2.0) Blood Gas Specimen Type Arterial Blood Gas Sample Site Right radial Blood Gas Patient Temperature 37.0 Arterial Blood Date Drawn [id number] Arterial Blood pH 7.438 (7.350-7.450) Arterial Blood Partial Pressure CO2 28.0 mmHg (35.0-48.0) Arterial Blood Partial Pressure O2 71.3 mmHg (83.0-108.0) Arterial Blood HCO3 18.5 mmol/L (21.0-28.0) Arterial Blood Oxygen Saturation 94.1 % (94.0-98.0) Arterial Blood Base Excess -4.2 mmol/L (-2.0-3.0) Arterial Blood Oxyhemoglobin 92.3 % (94.0-98.0) Arterial Blood Carboxyhemoglobin 1.6 % (0.5-1.5) Arterial Blood Methemoglobin 0.3 % (0.0-1.5) Joe Test Yes Blood Gas Total Hemoglobin 14.40 g/dL (13.5-17.5) Blood Gas Modality Room air FiO2 % 21.0 Troponin I High Sensitivity 10 ng/L (</=54) Test 05/21/24 11:18 05/21/24 10:58 Urine Color Yellow (Yellow) Urine Clarity Clear (Clear) Urine pH 5.5 (5.0-9.0) Urine Specific [place] 1.014 (1.001-1.035) Urine Protein 2+ (Negative) Urine Ketones Negative (Negative) Urine Blood Negative /uL (Negative) Urine Nitrite Negative (Negative) Urine Bilirubin Negative (Negative) Urine Urobilinogen Normal mg/dL (Negative) Urine Leukocyte Esterase Negative /uL (Negative) Urine RBC 1 /hpf (0 - 3) Urine WBC 1 /hpf (0 - 3) Urine Squamous Epithelial Cells None seen /hpf (<5) Urine Bacteria None seen /hpf (None Seen) Urine Mucus Few (None Seen) Urine Glucose Normal mg/dL (Normal) B-Type Natriuretic Peptide 113.90 pg/mL (0-100) Lipase 40 U/L (12-53) Other Laboratory Tests 05/24/24 07:11 05/23/24 05:49 Brief Hx & Hospital Course: Patient is a 84-year-old male with a past medical history of hypertension, coronary artery disease status post CABG, CKD, recent hospitalisation for pneumonia came to the ED with the chief complaint of cough and shortness of breath for a few days before presentation. Patient reported that he was admitted to the hospital 2 weeks ago for a similar complaints and was diagnosed with pneumonia, received IV ABx in the hospital and was D/c on levofloxacin for 7 days. patient reported improvement in symptoms for a few days but again had cough with whitish yellow phelgm and shortness of breath. Patient denies fever, chills rigors, chest pain, palpitations. Past medical history: as per HPI Past surgical history: CABG Social history: patient denies smoking, alcohol, drug use Home medications: Aspirin, atorvastatin Hospital course On admission patient had increased oxygen requirements and was placed on oxygen support via nasal cannula. Chest x-ray was done which showed Chest X ray showed Right more than left lower lobe diffuse opacities. Recent chest CT showed Interstitial infiltrates in both bases and right middle lobe and lingula. CT abdomen pelvis done on this admission showed fibrotic disease in the lung bases, large sliding-type hiatal hernia, acute abdominal or pelvic findings. ABG showed metabolic acidosis with respiratory alkalosis. Influenza type a and B were negative, COVID-19 negative. MRSA nares negative. Patient was started on antibiotics IV cefepime and doxycycline along with the Solu-Medrol 40 mg IV b.i.d. pulmonology were consulted with Dr. Pineda who recommended to transition to oral prednisone on discharge and outpatient follow up in the pulmonology clinic for further workup of interstitial lung disease/pulmonary fibrosis with rheumatoid factor, LAYLA, anti CCP IgM/IgG, high-resolution CT chest with 1 mm slices, pulmonary function test, 6 minutes walk test. Over the course of hospital stay, patient was gradually weaned off from oxygen support and tolerated well with no oxygen requirements at the time of discharge. Physical therapy evaluated the patient and recommended patient was physically stable and independent and would benefit from a front wheel walker at home, social worker assistant were consulted for the same. Patient is being discharged in stable condition to home and advised to follow up in the discharge clinic in 1 week. Review of systems Patient was alert and oriented to time, place and person. Blood pressure WNL. SpO2 > 92% on room air. Patient does not report shortness of breath, cough is very mild and is improving. Discharge plan: Patient is being discharged on cefpodoxime 200 mg b.i.d. for 5 days, doxycycline 100 mg b.i.d. for 5 days and prednisone 40 mg once daily for 4 days. Patient was advised to follow up with the discharge clinic in 1 week and advised to follow up in the outpatient pulmonology clinic with Dr. Pineda in 1-2 weeks for further workup of interstitial lung disease/pulmonary fibrosis. Physical examination on May 24, 2024: Gen - no pallor, no icterus, no cyanosis, no clubbing, no LAD, no edema . Skin - Patients skin is warm and dry. HEENT - normocephalic, atraumatic, moist mucous membranes. Neck - full ROM, no LAD, no JVD. Pulmonary - B/L decreased breath sounds with B/L fine inspiratory crackles R>L. no wheezing, no stridor. cardiovascular - normal S1,S2 heard. RUSB systolic murmur. peripheral pulses normal radial 2+, pedal 2+. capillary refill normal <2 secs. GI - soft abdomen without tenderness to palpation . no hepatosplenomegaly. Bowel sounds+ Neurological - Patient is A/O X 3 . Bilateral upper extremity strength 4/5, bilateral lower extremity strength 4/5, no facial droop, normal speech, no tremor, no sensory deficiets. Discussed with Dr. Miles Consults/Reason for consult Pulmonology consultation for suspected Interstitial lung disease, pneumonia Operations or Procedures CT abdomen pelvis without contrast showed- Fibrotic lung disease in the visualized lung bases. Large sliding-type hiatal hernia. No definite acute finding in the abdomen and pelvis. Compression deformity of multiple thoracic vertebral bodies Lower extremity venous duplex - no right or left femoropopliteal vein thrombosis Chest X ray- Diffuse right lower lobe opacities with mild pulmonary vascular congestion Condition at Discharge: Stable Final Diagnosis/Problems List # Acute Hypoxic respiratory failure likely d/t pneumonia # Community acquired pneumonia likely d/t pneumonia ?Gram+/- ?atypical # Interstitial infiltrates in B/L lung bases ? idiopathic pulmonary fibrosis # AARON on CKD stage III likely hemodynamically mediated # elevated D-dimer, Wells score < 4, B/L extremity venous duplex negative # H/o CAD S/p CABG # Constipation Discharge Disposition: Home Discharge Instruct/Medications Diet: Regular Activity: No Restrictions, As Tolerated Follow Up/Referral: Follow up in the D/C clinic on Monday06/04/2024 Follow up in the pulmonology outpatient clinic with Dr. Pineda in 1-2 weeks Medications: as per EMR Discharge Statement: "Patient was advised to return to the ER or call 911 if any headaches, dizziness, shortness of breath, chest pain, abdominal pain, bleeding, fevers, or worsening of medical condition. Patient was counseled about treatment plan, medications, possible side effects, patientverbalized understanding. All questions were answered to the best of my ability. This discharge took greater then 30 minutes in planning, reviewing documentation, counseling the patient, and discussing with other team members." ASSESSMENT ASSESSMENT Assessment # Acute Hypoxic respiratory failure likely d/t pneumonia # Community acquired pneumonia likely d/t pneumonia ?Gram+/- ?atypical # Interstitial infiltrates in B/L lung bases ? idiopathic pulmonary fibrosis # AARON on CKD stage III likely hemodynamically mediated # elevated D-dimer, Wells score < 4, B/L extremity venous duplex negative # H/o CAD S/p CABG # Constipation Addendum Addendum Addendum I was physically present for the renee portions of the service provided to patient by THE RESIDENT. I have reviewed the documentation, discussed the case with resident and agree with the resident's documentation except as noted. Also the patient's clinical case was discussed with the patient's nurse. This medical document was created using an electronic medical record system with computerized dictation system. Although this document has been carefully reviewed, there might still be some phonetic and typographical errors. These areas are purely typographical due to imperfections of the software programs, and do not reflect any compromise in the patient's medical care. Late signature. Date of Service: May 24, 2024 Billing Provider: KEVIN MILES MD Common Visit Codes: [id number] INP/OBS CARE(HIGH) MARE HERNANDEZ RESIDENT May 24, 2024 16:56 KEVIN MILES MD May 25, 2024 14:11
[2024-05-24] MEDS: CEFPODOXIME PROXETIL 200 MG TAB PO SCH (22:52)
[2024-05-24] MEDS: DOXYCYCLINE 100 MG TAB/CAP PO SCH (22:54)
[2024-05-24] MEDS: FAMOTIDINE 20 MG TAB PO SCH (22:55)
--- NOTE | 2024-05-24 23:07 | DVHPN2 ---
Progress Note - Dictate Date Seen: May 24, 2024 Medical Necessity Reason Pt with a Central, PICC or Fol: No Subjective Patient seen and examined at bedside. Breathing comfortably on room air. Overnight events reviewed. vital signs Vital Sign Date Time Temp Pulse Resp B/P (MAP) Pulse Ox O2 Delivery O2 Flow Rate FiO2 05/24/24 22:40 80 18 95 05/24/24 22:32 Room Air 0.0 05/24/24 22:32 21 05/24/24 20:33 97.8 131/70 (90) 97.8 Total Intake and Output 05/23/24 05/23/24 05/24/24 15:00 23:00 07:00 Intake Total 250 ml 365 ml 425 ml Output Total 300 ml 600 ml Balance 250 ml 65 ml -175 ml medications Current Medications Medications Dose Ordered Sig/Jen Route Start Time Stop Time Status Last Admin Dose Admin Acetaminophen/ Hydrocodone Bitart 1 tab Q4HP PRN PO 05/21/24 17:15 Ondansetron HCl 4 mg Q4HP PRN IV 05/21/24 17:15 Acetaminophen 650 mg Q6HP PRN PO 05/21/24 17:15 Morphine Sulfate 2 mg Q4HPRN PRN IV 05/21/24 17:15 Nitroglycerin 0.4 mg Q5MINP PRN SL 05/21/24 17:15 Morphine Sulfate 2 mg Q30M PRN IV 05/21/24 17:15 Aspirin 81 mg DAILY PO 05/22/24 10:00 05/24/24 08:18 81 MG Atorvastatin Calcium 20 mg DAILY PO 05/22/24 10:00 05/24/24 08:18 20 MG Finasteride 5 mg DAILY PO 05/22/24 10:00 05/24/24 08:18 5 MG Ipratropium [place] 0.5 mg Q4HWA NEB 05/22/24 10:00 05/24/24 22:32 0.5 MG Levalbuterol HCl 0.625 mg Q4HWA NEB 05/22/24 14:00 05/24/24 22:32 0.625 MG Docusate Sodium 100 mg BID PO 05/22/24 22:00 05/24/24 21:02 100 MG Lactulose 30 ml BIDPRN PRN PO 05/22/24 20:15 05/23/24 13:51 30 ML Prednisone 40 mg DAILY PO 05/25/24 10:00 Cefpodoxime Proxetil 200 mg BID PO 05/24/24 22:00 Doxycycline Monohydrate 100 mg Q12HR PO 05/24/24 22:00 05/24/24 22:54 100 MG Famotidine 20 mg Q12HR PO 05/24/24 22:00 05/24/24 22:55 20 MG objective Gen.: Patient lying in bed in no apparent distress. Breathing on room air. Head: Normocephalic, atraumatic. Eyes: EOMI/PERRLA. Ears: Normal hearing. Normal anatomy. Neck/trachea: Trachea midline, supple. Nose: Normal external anatomy. Mouth: Moist mucous membranes. Chest: Decreased air entry bilaterally. No wheezing or rhonchi. Cardiovascular: Positive S1, positive S2. Regular rate and rhythm. Abdomen: Positive bowel sounds in all 4 quadrants. Soft, non-tender, non- distended. : Deferred. Rectal: Deferred. Skin: Warm, dry. Intact. Extremities: 2+ radial pulses bilaterally. No lower extremity edema. Neuro: Awake, alert, oriented x3. No gross motor or sensory deficits. Cranial nerves II through XII intact. Gait not assessed. laboratory and microbiology Laboratory Tests 05/24/24 07:11 05/23/24 05:49 Test 05/24/24 07:11 Range/Units Serum Glucose 115 H 74-106 mg/dL Assessment/Plan Impression: Acute hypoxic respiratory failure PaO2 71.3 mmHg. 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 No respiratory distress Continue bronchodilators Continue steroids Continue antibiotics Incentive spirometry Antitussive PRN for cough. Pt awaiting walker. Patient is stable for discharge from the pulmonary standpoint. Follow up in 1-2 weeks in Pulmonary Clinic. Labs and imaging reviewed. Rest of plan as noted below. Plan: ABG reviewed. Compensated. Metabolic acidosis with respiratory compensation. Influenza type a and B negative. COVID-19 rapid negative. MRSA nares negative Prior CT chest 05/08/2024 reviewed: Bilateral pulm fibrosis with pre-disposition in the bases. Bronchiectasis. Compression fractures May be a candidate for Nintedanib or Pirfenidone as outpatient due to IPF. Echo report reviewed 05/09/24: Severe elevation of RVSP 70 mmHg. LVEF 55%. Grade I diastolic dysfunction. Supplemental oxygen PRN Keep O2 saturation above 92%. Bronchodilators IV steroids course, transition to PO prednisone course as tolerated Antibiotics course Avoid azithromycin due to bronchiectasis and interstitial lung disease to avoid resistance in the event of mycobacterium avium intracellulare. Monitor renal function due to acute kidney injury Monitor electrolytes. Supplement as necessary. Monitor ins and outs GI prophylaxis-Pepcid DVT prophylaxis Pt will need the following outpatient: Rheumatoid factor, LAYLA, Anti CCP IgM/IgG. High resolution CT chest with 1 mm slices. Pulmonary function tests 6 minutes walk test Prognosis: Poor given multiple comorbidities. Rest of plan per hospitalist and other consultants. Thank you Dr. Liu for allowing me to participate in this patient's care. Further recommendations will depend on patient's clinical course. Please do not hesitate to contact me if you have any questions or concerns. This medical document was created using an electronic medical record system with [employer] dictation system. Although this document has been carefully reviewed, there may still be some phonetic and typographical errors. These areas are purely typographical due to imperfections of the software programs, and do not reflect any compromise in the patient's medical care. Plan discussed with: Patient, Other (ALLA Moyer) DEB CASILLAS MD May 24, 2024 23:07
[2024-05-25] VITALS (17 sets, daily range): BP systolic 96–122; BP diastolic 62–79; PULSE 72–102; RESP 16–18; TEMP 97.6–99; O2SAT 90–99
[2024-05-25] MEDS: predniSONE 20 MG TAB PO SCH (11:13)
[2024-05-25] MEDS: guaiFENesin-DM 100/10mg/5ml SYR PO PRN (11:30)
[2024-05-25] MEDS ORDERED: FLUC200T50 PO (11:49)
[2024-05-25] MEDS: FLUCONAZOLE 100 MG TAB PO ONE (12:56)
--- NOTE | 2024-05-25 15:10 | DVHPNRES ---
Progress Note Date Seen: May 25, 2024 Resident Creating Document: TITI SRIVASTAVA RESIDENT Medical Necessity Reason Pt with a Central, PICC or Fol: No Subjective Review of Systems Patient was seen and examined at bedside. She stated feeling well, his vital signs are stable, he is currently on room air. Discharge plan: Patient is being discharged on cefpodoxime 200 mg b.i.d. for 5 days, doxycycline 100 mg b.i.d. for 5 days and prednisone 40 mg once daily for 4 days. Patient was advised to follow up with the discharge clinic in 1 week and advised to follow up in the outpatient pulmonology clinic with Dr. Pineda in 1-2 weeks for further workup of interstitial lung disease/pulmonary fibrosis. human services program specialist was consulted due to from we will walker, it needs to be delivered at bedside, still pending. Objective vital signs Vital Sign Date Time Temp Pulse Resp B/P (MAP) Pulse Ox O2 Delivery O2 Flow Rate FiO2 05/25/24 14:27 82 18 96 05/25/24 14:21 Room Air 05/25/24 14:21 0 21 05/25/24 13:00 97.9 122/79 (93) 97.9 Total Intake and Output 05/24/24 05/24/24 05/25/24 15:00 23:00 07:00 Intake Total 250 ml 300 ml 900 ml Output Total 700 ml 800 ml Balance 250 ml -400 ml 100 ml medications Current Medications Medications Dose Ordered Sig/Jen Route Start Time Stop Time Status Last Admin Dose Admin Acetaminophen/ Hydrocodone Bitart 1 tab Q4HP PRN PO 05/21/24 17:15 Ondansetron HCl 4 mg Q4HP PRN IV 05/21/24 17:15 Acetaminophen 650 mg Q6HP PRN PO 05/21/24 17:15 Morphine Sulfate 2 mg Q4HPRN PRN IV 05/21/24 17:15 Nitroglycerin 0.4 mg Q5MINP PRN SL 05/21/24 17:15 Morphine Sulfate 2 mg Q30M PRN IV 05/21/24 17:15 Aspirin 81 mg DAILY PO 05/22/24 10:00 05/25/24 11:14 81 MG Atorvastatin Calcium 20 mg DAILY PO 05/22/24 10:00 05/25/24 11:14 20 MG Finasteride 5 mg DAILY PO 05/22/24 10:00 05/25/24 11:15 5 MG Ipratropium [place] 0.5 mg Q4HWA NEB 05/22/24 10:00 05/25/24 14:21 0.5 MG Levalbuterol HCl 0.625 mg Q4HWA NEB 05/22/24 14:00 05/25/24 14:21 0.625 MG Docusate Sodium 100 mg BID PO 05/22/24 22:00 05/25/24 11:14 100 MG Lactulose 30 ml BIDPRN PRN PO 05/22/24 20:15 05/23/24 13:51 30 ML Prednisone 40 mg DAILY PO 05/25/24 10:00 05/25/24 11:13 40 MG Cefpodoxime Proxetil 200 mg BID PO 05/24/24 22:00 05/25/24 11:30 200 MG Doxycycline Monohydrate 100 mg Q12HR PO 05/24/24 22:00 05/25/24 11:15 100 MG Famotidine 20 mg Q12HR PO 05/24/24 22:00 05/25/24 11:15 20 MG Guaifenesin/ Dextromethorphan 10 ml Q4HP PRN PO 05/25/24 10:45 05/25/24 11:30 10 ML Fluconazole 200 mg DAILY PO 05/26/24 10:00 Examination Gen - no pallor, no icterus, no cyanosis, no clubbing, no LAD, no edema . Skin - Patients skin is warm and dry. HEENT - normocephalic, atraumatic, moist mucous membranes. Neck - full ROM, no LAD, no JVD. Pulmonary - B/L decreased breath sounds with B/L fine inspiratory crackles R>L. no wheezing, no stridor. cardiovascular - normal S1,S2 heard. RUSB systolic murmur. peripheral pulses normal radial 2+, pedal 2+. capillary refill normal <2 secs. GI - soft abdomen without tenderness to palpation . no hepatosplenomegaly. Bowel sounds+ Neurological - Patient is A/O X 3 . Bilateral upper extremity strength 4/5, bilateral lower extremity strength 4/5, no facial droop, normal speech, no tremor, no sensory deficiets. laboratory and microbiology Laboratory Tests 05/24/24 07:11 05/23/24 05:49 Test 05/24/24 07:11 Range/Units Serum Glucose 115 H 74-106 mg/dL Microbiology Date/Time Source Procedure Growth Status 05/22/24 11:12 Sputum Gram Stain - Final Resulted 05/22/24 11:12 Respiratory Culture - Preliminary Presumptive Vanita albicans Resulted 05/21/24 22:50 Nose MRSA Screen - Final Complete Labs and/or images reviewed: Labs reviewed by me, Image(s) reviewed by me Problem List/Assessment/Plan Problem List/Assessment/Plan # Acute Hypoxic respiratory failure likely d/t pneumonia # pneumonia likely d/t ?Gram+/- ?atypical # Interstitial infiltrates in B/L lung bases ? idiopathic pulmonary fibrosis - ABGs shows mixed metabolic acidosis with respiratory alkalosis - CXR shows B/L lower lobe diffuse opacities R>L - Chest CT 05/08 shows Interstitial infiltrates in both bases and right middle lobe and lingula. - MRSA negative - Sputum culture pending - patient is currently on 2L/min O2 - started on cefepime and doxycycline - On methylprednisolone 40mg BID IV - Levalbuterol and Ipratropium nebulizer q4hrs - physical therapy - patient will be weaned of O2 support. - Follow up in the outpatient clinic with Dr Pineda for further workup of Chronic interstitial lung disease/idiopathic pulmonary fibrosis. # AARON on CKD stage III likely hemodynamically mediated - Patient received high dose Steroid in the ER - Monitor serum creatinine and electrolytes - AARON improving # elevated D-dimer - Wells score < 4 - low-moderate risk of PE - Lower extremity venous duplex negative - CT angio chest contraindicated as of now d/t decreased renal function # H/o CAD S/p CABG - on aspirin and atorvastatin # Constipation - on docusate - lactulose as needed Discharge plan: Patient is being discharged on cefpodoxime 200 mg b.i.d. for 5 days, doxycycline 100 mg b.i.d. for 5 days and prednisone 40 mg once daily for 4 days. Patient was advised to follow up with the discharge clinic in 1 week and advised to follow up in the outpatient pulmonology clinic with Dr. Pineda in 1-2 weeks for further workup of interstitial lung disease/pulmonary fibrosis. human services program specialist was consulted to provide walker, it needs to be delivered at bedside, still pending. Plan discussed with Plan discussed with: Patient, Other (RN) My Orders My Orders Orders - TITI SRIVASTAVA RESIDENT Procedure Category Date Status Time Guaifenesin-Dextromet PHA 05/25/24 In Process Liquid (Robitussin 10:45 Fluconazole Tablet PHA 05/26/24 In Process (Diflucan Tablet) 10:00 Addendum Addendum Addendum I was physically present for the renee portions of the service provided to patient by THE RESIDENT. I have reviewed the documentation, discussed the case with resident and agree with the resident's documentation except as noted. Also the patient's clinical case was discussed with the patient's nurse. This medical document was created using an electronic medical record system with computerized dictation system. Although this document has been carefully reviewed, there might still be some phonetic and typographical errors. These areas are purely typographical due to imperfections of the software programs, and do not reflect any compromise in the patient's medical care. Late signature. Date of Service: May 25, 2024 Billing Provider: KEVIN MILES MD Common Visit Codes: [id number] INP/OBS CARE(HIGH) TITI SRIVASTAVA RESIDENT May 25, 2024 15:10 KEVIN MILES MD May 26, 2024 21:52
--- NOTE | 2024-05-25 23:06 | DVHPN2 ---
Progress Note - Dictate Date Seen: May 25, 2024 Medical Necessity Reason Pt with a Central, PICC or Fol: No Subjective Patient seen and examined at bedside. Breathing comfortably on room air. Overnight events reviewed. vital signs Vital Sign Date Time Temp Pulse Resp B/P (MAP) Pulse Ox O2 Delivery O2 Flow Rate FiO2 05/25/24 22:50 92 18 99 05/25/24 21:05 97.6 96/62 (73) 97.6 05/25/24 20:00 Room Air* 0 21 Total Intake and Output 05/24/24 05/24/24 05/25/24 15:00 23:00 07:00 Intake Total 250 ml 300 ml 900 ml Output Total 700 ml 800 ml Balance 250 ml -400 ml 100 ml medications Current Medications Medications Dose Ordered Sig/Jen Route Start Time Stop Time Status Last Admin Dose Admin Acetaminophen/ Hydrocodone Bitart 1 tab Q4HP PRN PO 05/21/24 17:15 Ondansetron HCl 4 mg Q4HP PRN IV 05/21/24 17:15 Acetaminophen 650 mg Q6HP PRN PO 05/21/24 17:15 Morphine Sulfate 2 mg Q4HPRN PRN IV 05/21/24 17:15 Nitroglycerin 0.4 mg Q5MINP PRN SL 05/21/24 17:15 Morphine Sulfate 2 mg Q30M PRN IV 05/21/24 17:15 Aspirin 81 mg DAILY PO 05/22/24 10:00 05/25/24 11:14 81 MG Atorvastatin Calcium 20 mg DAILY PO 05/22/24 10:00 05/25/24 11:14 20 MG Finasteride 5 mg DAILY PO 05/22/24 10:00 05/25/24 11:15 5 MG Ipratropium [place] 0.5 mg Q4HWA NEB 05/22/24 10:00 05/25/24 22:47 0.5 MG Levalbuterol HCl 0.625 mg Q4HWA NEB 05/22/24 14:00 05/25/24 22:48 0.625 MG Docusate Sodium 100 mg BID PO 05/22/24 22:00 05/25/24 21:26 100 MG Lactulose 30 ml BIDPRN PRN PO 05/22/24 20:15 05/23/24 13:51 30 ML Prednisone 40 mg DAILY PO 05/25/24 10:00 05/25/24 11:13 40 MG Cefpodoxime Proxetil 200 mg BID PO 05/24/24 22:00 05/25/24 21:31 200 MG Doxycycline Monohydrate 100 mg Q12HR PO 05/24/24 22:00 05/25/24 21:26 100 MG Famotidine 20 mg Q12HR PO 05/24/24 22:00 05/25/24 21:26 20 MG Guaifenesin/ Dextromethorphan 10 ml Q4HP PRN PO 05/25/24 10:45 05/25/24 11:30 10 ML Fluconazole 200 mg DAILY PO 05/26/24 10:00 objective Gen.: Patient lying in bed in no apparent distress. Breathing on room air. Head: Normocephalic, atraumatic. Eyes: EOMI/PERRLA. Ears: Normal hearing. Normal anatomy. Neck/trachea: Trachea midline, supple. Nose: Normal external anatomy. Mouth: Moist mucous membranes. Chest: Decreased air entry bilaterally. No wheezing or rhonchi. Cardiovascular: Positive S1, positive S2. Regular rate and rhythm. Abdomen: Positive bowel sounds in all 4 quadrants. Soft, non-tender, non- distended. : Deferred. Rectal: Deferred. Skin: Warm, dry. Intact. Extremities: 2+ radial pulses bilaterally. No lower extremity edema. Neuro: Awake, alert, oriented x3. No gross motor or sensory deficits. Cranial nerves II through XII intact. Gait not assessed. laboratory and microbiology Laboratory Tests 05/24/24 07:11 05/23/24 05:49 Test 05/24/24 07:11 Range/Units Serum Glucose 115 H 74-106 mg/dL Assessment/Plan Impression: Acute hypoxic respiratory failure PaO2 71.3 mmHg. 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 No respiratory distress Continue bronchodilators Continue antibiotics Continue antifungal Incentive spirometry Antitussive PRN for cough. Pt awaiting home walker. Patient is stable for discharge from the pulmonary standpoint. Follow up in 1-2 weeks in Pulmonary Clinic. Labs and imaging reviewed. Rest of plan as noted below. Plan: ABG reviewed. Compensated. Metabolic acidosis with respiratory compensation. Influenza type a and B negative. COVID-19 rapid negative. MRSA nares negative Prior CT chest 05/08/2024 reviewed: Bilateral pulm fibrosis with pre-disposition in the bases. Bronchiectasis. Compression fractures May be a candidate for Nintedanib or Pirfenidone as outpatient due to IPF. Echo report reviewed 05/09/24: Severe elevation of RVSP 70 mmHg. LVEF 55%. Grade I diastolic dysfunction. Supplemental oxygen PRN Keep O2 saturation above 92%. Bronchodilators IV steroids course, transition to PO prednisone course as tolerated Antibiotics course Avoid azithromycin due to bronchiectasis and interstitial lung disease to avoid resistance in the event of mycobacterium avium intracellulare. Monitor renal function due to acute kidney injury Monitor electrolytes. Supplement as necessary. Monitor ins and outs GI prophylaxis-Pepcid DVT prophylaxis Pt will need the following outpatient: Rheumatoid factor, LAYLA, Anti CCP IgM/IgG. High resolution CT chest with 1 mm slices. Pulmonary function tests 6 minutes walk test Prognosis: Poor given multiple comorbidities. Rest of plan per hospitalist and other consultants. Thank you Dr. Liu for allowing me to participate in this patient's care. Further recommendations will depend on patient's clinical course. Please do not hesitate to contact me if you have any questions or concerns. This medical document was created using an electronic medical record system with [employer] dictation system. Although this document has been carefully reviewed, there may still be some phonetic and typographical errors. These areas are purely typographical due to imperfections of the software programs, and do not reflect any compromise in the patient's medical care. Plan discussed with: Patient, Other (ALLA Palomares) DEB CASILLAS MD May 25, 2024 23:06
[2024-05-26 01:00] VITALS: BP 121/73; PULSE 89; RESP 18; TEMP 98.6; O2SAT 93
[2024-05-26 05:26] VITALS: BP 130/71; PULSE 68; RESP 18; TEMP 97.8; O2SAT 93
[2024-05-26 06:53] VITALS: BP 130/71; PULSE 68; RESP 18; TEMP 97.8; O2SAT 93
[2024-05-26 07:35] VITALS: PULSE 71; RESP 18; O2SAT 93
[2024-05-26 07:40] VITALS: PULSE 67; RESP 18; O2SAT 95
[2024-05-26] MEDS: FLUCONAZOLE 100 MG TAB PO SCH (08:52)
[2024-05-26 09:00] VITALS: BP 145/80; PULSE 72; RESP 18; TEMP 97.6; O2SAT 94
--- NOTE | 2024-05-26 19:01 | DVHPNRES ---
Progress Note Date Seen: May 26, 2024 Resident Creating Document: FRANNY HERNANDEZLIZ RESIDENT Medical Necessity Reason Pt with a Central, PICC or Fol: No Subjective Review of Systems Patient was seen and examined at bedside. She stated feeling well, his vital signs are stable, he is currently on room air. Discharge plan: Patient is being discharged on cefpodoxime 200 mg b.i.d. for 5 days, doxycycline 100 mg b.i.d. for 5 days and prednisone 40 mg once daily for 4 days. Patient was advised to follow up with the discharge clinic in 1 week and advised to follow up in the outpatient pulmonology clinic with Dr. Pineda in 1-2 weeks for further workup of interstitial lung disease/pulmonary fibrosis. Patient received the walker at bedside and is being discharged in stable condition to home. Objective vital signs Vital Sign Date Time Temp Pulse Resp B/P (MAP) Pulse Ox O2 Delivery O2 Flow Rate FiO2 05/26/24 09:00 97.6 72 18 145/80 (101) 94 97.6 05/26/24 08:00 Room Air* 0 21 Total Intake and Output 05/25/24 05/25/24 05/26/24 15:00 23:00 07:00 Intake Total 1000 ml 500 ml Balance 1000 ml 500 ml Examination Gen - no pallor, no icterus, no cyanosis, no clubbing, no LAD, no edema . Skin - Patients skin is warm and dry. HEENT - normocephalic, atraumatic, moist mucous membranes. Neck - full ROM, no LAD, no JVD. Pulmonary - B/L decreased breath sounds with B/L fine inspiratory crackles R>L. no wheezing, no stridor. cardiovascular - normal S1,S2 heard. RUSB systolic murmur. peripheral pulses normal radial 2+, pedal 2+. capillary refill normal <2 secs. GI - soft abdomen without tenderness to palpation . no hepatosplenomegaly. Bowel sounds+ Neurological - Patient is A/O X 3 . Bilateral upper extremity strength 4/5, bilateral lower extremity strength 4/5, no facial droop, normal speech, no tremor, no sensory deficiets. laboratory and microbiology Laboratory Tests 05/24/24 07:11 05/23/24 05:49 Test 05/24/24 07:11 Range/Units Serum Glucose 115 H 74-106 mg/dL Microbiology Date/Time Source Procedure Growth Status 05/22/24 11:12 Sputum Gram Stain - Final Complete 05/22/24 11:12 Respiratory Culture - Final Presumptive Vanita albicans Complete 05/21/24 22:50 Nose MRSA Screen - Final Complete Labs and/or images reviewed: Labs reviewed by me, Image(s) reviewed by me Problem List/Assessment/Plan Problem List/Assessment/Plan Assessment and Plan # Acute Hypoxic respiratory failure likely d/t pneumonia # pneumonia likely d/t ?Gram+/- ?atypical # Interstitial infiltrates in B/L lung bases ? idiopathic pulmonary fibrosis - ABGs shows mixed metabolic acidosis with respiratory alkalosis - CXR shows B/L lower lobe diffuse opacities R>L - Chest CT 05/08 shows Interstitial infiltrates in both bases and right middle lobe and lingula. - MRSA negative - wason cefepime and doxycycline - On methylprednisolone 40mg BID IV as inpatient - Levalbuterol and Ipratropium nebulizer q4hrs as inpatient - physical therapy - off oxygen therapy; saturating well on room air - Follow up in the outpatient clinic with Dr Pineda for further workup of Chronic interstitial lung disease/idiopathic pulmonary fibrosis. # AARON on CKD stage III likely hemodynamically mediated - Patient received high dose Steroid in the ER - Monitor serum creatinine and electrolytes - AARON improving # elevated D-dimer - Wells score < 4 - low-moderate risk of PE - Lower extremity venous duplex negative - CT angio chest contraindicated as of now d/t decreased renal function # H/o CAD S/p CABG - on aspirin and atorvastatin # Constipation - on docusate - lactulose as needed Discharge plan: Patient is being discharged on cefpodoxime 200 mg b.i.d. for 5 days, doxycycline 100 mg b.i.d. for 5 days and prednisone 40 mg once daily for 4 days. Patient was advised to follow up with the discharge clinic in 1 week and advised to follow up in the outpatient pulmonology clinic with Dr. Pineda in 1-2 weeks for further workup of interstitial lung disease/pulmonary fibrosis. Patient discharged after receiving the walker at bedside; received late last night. Discharge summary documented on May 24, 2024. Plan discussed with Plan discussed with: Patient, Other (RN ( Sri )) Addendum Addendum Addendum I was physically present for the renee portions of the service provided to patient by THE RESIDENT. I have reviewed the documentation, discussed the case with resident and agree with the resident's documentation except as noted. Also the patient's clinical case was discussed with the patient's nurse. This medical document was created using an electronic medical record system with computerized dictation system. Although this document has been carefully reviewed, there might still be some phonetic and typographical errors. These areas are purely typographical due to imperfections of the software programs, and do not reflect any compromise in the patient's medical care. Late signature. Date of Service: May 26, 2024 Billing Provider: KEVIN MILES MD Common Visit Codes: 06308-HGI/OBS DISCH DAY >30min MARE HERNANDEZ RESIDENT May 26, 2024 19:01 KEVIN MILES MD May 26, 2024 21:56
--- NOTE | 2024-05-26 23:38 | DVHPN2 ---
Progress Note - Dictate Date Seen: May 26, 2024 Medical Necessity Reason Pt with a Central, PICC or Fol: No Subjective Patient seen and examined at bedside. Breathing comfortably on room air. Overnight events reviewed. vital signs Vital Sign Date Time Temp Pulse Resp B/P (MAP) Pulse Ox O2 Delivery O2 Flow Rate FiO2 05/26/24 09:00 97.6 72 18 145/80 (101) 94 97.6 05/26/24 08:00 Room Air* 0 21 Total Intake and Output 05/25/24 05/25/24 05/26/24 15:00 23:00 07:00 Intake Total 1000 ml 500 ml Balance 1000 ml 500 ml objective Gen.: Patient lying in bed in no apparent distress. Breathing on room air. Head: Normocephalic, atraumatic. Eyes: EOMI/PERRLA. Ears: Normal hearing. Normal anatomy. Neck/trachea: Trachea midline, supple. Nose: Normal external anatomy. Mouth: Moist mucous membranes. Chest: Decreased air entry bilaterally. No wheezing or rhonchi. Cardiovascular: Positive S1, positive S2. Regular rate and rhythm. Abdomen: Positive bowel sounds in all 4 quadrants. Soft, non-tender, non- distended. : Deferred. Rectal: Deferred. Skin: Warm, dry. Intact. Extremities: 2+ radial pulses bilaterally. No lower extremity edema. Neuro: Awake, alert, oriented x3. No gross motor or sensory deficits. Cranial nerves II through XII intact. Gait not assessed. laboratory and microbiology Laboratory Tests 05/24/24 07:11 05/23/24 05:49 Test 05/24/24 07:11 Range/Units Serum Glucose 115 H 74-106 mg/dL Assessment/Plan Impression: Acute hypoxic respiratory failure PaO2 71.3 mmHg. 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 No respiratory distress Continue bronchodilators Continue antibiotics Continue antifungal Incentive spirometry Antitussive PRN for cough. Pt awaiting home walker. Patient is stable for discharge from the pulmonary standpoint. Follow up in 2-3 weeks in Pulmonary Clinic. Recommend outpatient PFTs and 6MWT. Labs and imaging reviewed. Rest of plan as noted below. Plan: ABG reviewed. Compensated. Metabolic acidosis with respiratory compensation. Influenza type a and B negative. COVID-19 rapid negative. MRSA nares negative Prior CT chest 05/08/2024 reviewed: Bilateral pulm fibrosis with pre-disposition in the bases. Bronchiectasis. Compression fractures May be a candidate for Nintedanib or Pirfenidone as outpatient due to IPF. Echo report reviewed 05/09/24: Severe elevation of RVSP 70 mmHg. LVEF 55%. Grade I diastolic dysfunction. Supplemental oxygen PRN Keep O2 saturation above 92%. Bronchodilators IV steroids course, transition to PO prednisone course as tolerated Antibiotics course Avoid azithromycin due to bronchiectasis and interstitial lung disease to avoid resistance in the event of mycobacterium avium intracellulare. Monitor renal function due to acute kidney injury Monitor electrolytes. Supplement as necessary. Monitor ins and outs GI prophylaxis-Pepcid DVT prophylaxis Pt will need the following outpatient: Rheumatoid factor, LAYLA, Anti CCP IgM/IgG. High resolution CT chest with 1 mm slices. Pulmonary function tests 6 minutes walk test Prognosis: Poor given multiple comorbidities. Rest of plan per hospitalist and other consultants. Thank you Dr. Liu for allowing me to participate in this patient's care. Further recommendations will depend on patient's clinical course. Please do not hesitate to contact me if you have any questions or concerns. This medical document was created using an electronic medical record system with [employer] dictation system. Although this document has been carefully reviewed, there may still be some phonetic and typographical errors. These areas are purely typographical due to imperfections of the software programs, and do not reflect any compromise in the patient's medical care. Plan discussed with: Patient, Other (RN) DEB CASILLAS MD May 26, 2024 23:38
== END 2024-05-26 09:56 | disposition home or self-care (01) | DRG 177 ==
LOC: ER 10:16 → TELE 17:01 → TELE-WESTW 22:30 → WEST WING 05-24 21:08
PROVIDERS: ADMIT Internal Medicine; ATTEND Internal Medicine
PROC: 5A09357 Assistance with Respiratory Ventilation, Less than 24 Consecutive Hours, Continuous Positive Airway Pressure (ICD-10-PCS; principal; 2024-05-25)
DX: J15.69 Pneumonia due to other Gram-negative bacteria (principal); J96.01 Acute respiratory failure with hypoxia; J44.1 Chronic obstructive pulmonary disease with (acute) exacerbation; J47.0 Bronchiectasis with acute lower respiratory infection; I13.0 Hypertensive heart and chronic kidney disease with heart failure and stage 1 through stage 4 chronic kidney disease, or unspecified chronic kidney disease; N18.4 Chronic kidney disease, stage 4 (severe); N17.9 Acute kidney failure, unspecified; M48.54XA Collapsed vertebra, not elsewhere classified, thoracic region, initial encounter for fracture; J44.0 Chronic obstructive pulmonary disease with (acute) lower respiratory infection; E87.4 Mixed disorder of acid-base balance; K44.9 Diaphragmatic hernia without obstruction or gangrene; Z20.822 Contact with and (suspected) exposure to COVID-19; N40.0 Benign prostatic hyperplasia without lower urinary tract symptoms; J84.112 Idiopathic pulmonary fibrosis; E78.5 Hyperlipidemia, unspecified; I25.10 Atherosclerotic heart disease of native coronary artery without angina pectoris; I50.9 Heart failure, unspecified; I27.20 Pulmonary hypertension, unspecified; D64.9 Anemia, unspecified; K59.00 Constipation, unspecified; J15.9 Unspecified bacterial pneumonia; Z95.1 Presence of aortocoronary bypass graft; Z79.899 Other long term (current) drug therapy
CPT/HCPCS: 36415; 36600; 71045; 74176; 80048; 80053; 81001; 82550; 82570; 82805; 83605; 83690; 83880; 84156; 84300; 84484; 85025; 85379; 85610; 87070; 87077; 87081; 87205; 87426; 87804; 93005; 93970; 94640; 94660; 96365; 97162; G0378; J3490

== ENCOUNTER → 2024-08-05 | Outpatient (CLI) | payer OTHER, MEDICAID ==
[~2024-08-05] MED LIST changes: +ALBUTEROL SULF 2.5 MG/0.5ML(0.5%) NEB SOLN ONE; +CEFP200T15 PO; +DOXY1CAP57 PO; +FLUC200T50 PO; -LEVO500T91 PO; -PANT40T PO
== END | disposition home or self-care (01) ==
LOC: RT 09:11
PROVIDERS: ATTEND Surgery
DX: R06.09 Other forms of dyspnea (principal); J84.10 Pulmonary fibrosis, unspecified; R05.9 Cough, unspecified
CPT/HCPCS: 94060; 94727; 94729

== ENCOUNTER 2024-12-02 10:47 | Outpatient (CLI) | payer OTHER, MEDICAID ==
[~2024-12-02 10:47] MED LIST changes: -ALBUTEROL SULF 2.5 MG/0.5ML(0.5%) NEB SOLN ONE
[2024-12-02 10:51] LABS: Urine Bacteria None Seen /hpf (None Seen)
[2024-12-02 11:11] LABS: Urine Blood Negative /uL (Negative); Urine Clarity Clear (Clear); Urine Color Light-Yellow (Yellow); Urine Protein, UAD 1+ (Negative); Urine Specific Gravity 1.014 (1.001-1.035); Urine Squamous Epithelial Cell None Seen /hpf (<5); Urine Urobilinogen Normal (Negative); Urine WBC 1 /HPF (0-3); Urine pH 5.5 (5.0-9.0)
== END 2024-12-02 17:00 | disposition home or self-care (01) ==
LOC: LAB 10:47
PROVIDERS: ATTEND Internal Medicine
DX: R10.9 Unspecified abdominal pain (principal)
CPT/HCPCS: 81001

== ENCOUNTER 2025-04-05 18:44 | Emergency (ER) | payer OTHER, MEDICAID ==
[~2025-04-05] VITALS: Ht 167.6 cm; Wt 58.2 kg
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
[2025-04-05 19:12] VITALS: TEMP 98.2
[2025-04-05 19:54] VITALS: BP 124/75; PULSE 81; RESP 17; O2SAT 96
--- NOTE | 2025-04-05 20:30 | DVH ---
CLINICAL HISTORY: head injury TECHNIQUE: Helical imaging carried out from skull base to vertex without intravenous contrast. This e xam was performed according to our departmental dose optimization program. Up-to-date CT equipment an d radiation dose reduction techniques are utilized as appropriate. 51.62 CTDIVol: 51.62 mGy DLP: 127.57 mGy-cm WID: COMPARISON: None FINDINGS: Cerebral volume loss with concordant prominence of the subarachnoid spaces and ventricles. Mild patch y low attenuation in the cerebral white matter consistent with nonspecific white matter disease. Ther e is motion artifact present on this examination. There is no midline shift or mass effect. The ortega white matter interfaces are maintained. The basal cisterns are patent. There is no definite acute intracranial hemorrhage or extra-axial fluid collecti on. The mastoid air cells and visualized paranasal sinuses are well-aerated. IMPRESSION: 1. Motion artifact slightly limits examination. No definite acute intracranial abnormality. 2. Mild cerebral volume loss and mild chronic microvascular ischemic change.
== END 2025-04-05 20:46 | disposition home or self-care (01) ==
LOC: ER 18:46
DX: S00.03XA Contusion of scalp, initial encounter (principal); S59.901A Unspecified injury of right elbow, initial encounter; S69.90XA Unspecified injury of unspecified wrist, hand and finger(s), initial encounter; S99.911A Unspecified injury of right ankle, initial encounter; I11.0 Hypertensive heart disease with heart failure; I50.9 Heart failure, unspecified; I25.10 Atherosclerotic heart disease of native coronary artery without angina pectoris; I67.82 Cerebral ischemia; Z79.82 Long term (current) use of aspirin; Z79.899 Other long term (current) drug therapy; Z95.1 Presence of aortocoronary bypass graft; W01.0XXA Fall on same level from slipping, tripping and stumbling without subsequent striking against object, initial encounter; Y93.89 Activity, other specified; Y92.89 Other specified places as the place of occurrence of the external cause; Y99.8 Other external cause status
CPT/HCPCS: 70450

== ENCOUNTER 2025-05-12 09:11 | Outpatient (CLI) | payer OTHER, MEDICAID ==
[2025-05-12 09:42] LABS: Hematocrit 40.4 % (41.0-53.0); Hemoglobin 13.7 g/dL (13.5-17.5); Mean Corpuscular Hemoglobin 30.0 pg (28.0-32.0); Mean Corpuscular Volume 88.5 fL (80.0-100.0); Nucleated Red Blood Cells % 0.0 %
[2025-05-12 10:08] LABS: Alanine Aminotransferase < 9 U/L (7-40); Albumin 4.3 g/dL (3.2-4.8); Alkaline Phosphatase 162 U/L (46-116); Anion Gap 10 (5-15); BUN/Creatinine Ratio 15.3 (10.0-20.0); Blood Urea Nitrogen 33 mg/dL (9-23); Calcium 9.4 mg/dL (8.7-10.4); Carbon Dioxide 24 mmol/L (20-31); Chloride 106 mmol/L (98-107); Glucose 86 mg/dL (74-106); Potassium 4.6 mmol/L (3.5-5.1); Sodium 140 mmol/L (136-145); Total Protein 8.2 g/dL (5.7-8.2); Triglycerides 103 mg/dL (< 150)
[2025-05-12 10:09] LABS: Bilirubin, Total 0.7 mg/dL (0.2-1.0); Cholesterol 154 mg/dL (< 200); HDL Cholesterol 52 mg/dL (40-59)
[2025-05-12 10:41] LABS: Prostate Specific Antigen 1.52 ng/mL (0.0-4.0); Urine Protein, UAD 1+ (Negative)
[2025-05-12 10:49] LABS: Free T4 (Free Thyroxine) 1.22 ng/dL (0.89-1.76)
== END 2025-05-12 17:00 | disposition home or self-care (01) ==
LOC: LAB 09:11
PROVIDERS: ATTEND Internal Medicine
DX: Z12.5 Encounter for screening for malignant neoplasm of prostate (principal); E55.9 Vitamin D deficiency, unspecified; R73.03 Prediabetes; I25.10 Atherosclerotic heart disease of native coronary artery without angina pectoris; R94.4 Abnormal results of kidney function studies; Z00.01 Encounter for general adult medical examination with abnormal findings; Z79.899 Other long term (current) drug therapy
CPT/HCPCS: 36415; 80053; 80061; 81001; 82306; 83036; 84439; 84443; 85025; G0103; 84153

== ENCOUNTER 2025-05-20 14:09 | Inpatient (IN) | payer MEDICARE, MEDICAID ==
[~2025-05-20] VITALS: Ht 170.2 cm; Wt 58.1 kg
[2025-05-20 14:50] LABS: Hematocrit 37.3 % (41.0-53.0); Hemoglobin 12.9 g/dL (13.5-17.5); Mean Corpuscular Hemoglobin 30.7 pg (28.0-32.0); Mean Corpuscular Volume 88.6 fL (80.0-100.0); Nucleated Red Blood Cells % 0.0 %
[2025-05-20 15:03] LABS: Chloride 106 mmol/L (98-107); Potassium 4.2 mmol/L (3.5-5.1); Sodium 142 mmol/L (136-145)
[2025-05-20 15:04] LABS: Anion Gap 11 (5-15); Calcium 8.8 mg/dL (8.7-10.4); Carbon Dioxide 25 mmol/L (20-31)
--- NOTE | 2025-05-20 15:07 | DVH ---
CHEST RADIOGRAPH Indication: sob Technique: Single frontal view of the chest was obtained Comparison: XY CHEST PORTABLE on DOS: 05/21/24, XY CHEST PORTABLE on DOS: 05/08/24, EKG on DOS: 04/20/22 FINDINGS: Lines and Tubes: Sternal wire sutures in place Lungs: Airspace disease both lung bases worse on the right than left. Pleura: No effusion. No pneumothorax. Cardiomediastinal contours: Cardiomegaly Bones: No acute osseous abnormality. IMPRESSION: 1. Worsening pulmonary vascular congestion. 2. Cardiomegaly.
[2025-05-20 15:09] LABS: BUN/Creatinine Ratio 16.5 (10.0-20.0); Blood Urea Nitrogen 34 mg/dL (9-23); Glucose 104 mg/dL (74-106)
--- NOTE | 2025-05-20 15:31 | ED.PDOC ---
SOB-HPI HPI Comments 85 y/o M, brought in by keya, with PMHx of HTN, CHF, CAD, and angina presents to the ED for CC of shortness of breath. Patient states, he has been experiencing worsening shortness of breath onset, [id number]. Patient denies fever, chills, chest pain, or palpitations. No other symptom or modifying factors are present at this time. Chief Complaint: Shortness of Breath Time Seen by MD: 15:10 Primary Care Provider: JUAQUIN Reviewed notes: Nurses Notes, Medications, Allergies Information Source: Patient, Relative Mode of Arrival: Wheelchair Severity: Moderate Timing: Weeks Duration: Since onset PE Risk Factors: None History of: CHF Prehospital treatment: None Modifying Factors: Nothing Past Medical History PAST MEDICAL HISTORY: Angina, CAD, CHF, HTN Surgical History: CABG Family History Family History: Unknown Social History Smoker: Non-Smoker Alcohol: Denies ETOH Use Drugs: Denies Drug Use Lives In: Home Constitutional: denies: chills, diaphoresis, fatigue, fever, malaise, sweats, weakness, others EENTM: denies: blurred vision, double vision, ear bleeding, ear discharge, ear drainage, ear pain, ear ringing, eye pain, eye redness, hearing loss, mouth pain, mouth swelling, nasal discharge, nose bleeding, nose congestion, nose pain, photophobia, tearing, throat pain, throat swelling, voice changes, others Respiratory: reports: shortness of breath; denies: cough, hemoptysis, orthopnea, SOB at rest, SOB with excertion, stridor, wheezing, others Cardiovascular: denies: chest pain, dizzy spells, diaphoresis, Dyspnea on exertion, edema, irregular heart beat, left arm pain, lightheadedness, palpitations, PND, syncope, others Gastrointestinal: denies: abdomen distended, abdominal pain, blood streaked bowels, constipated, diarrhea, dysphagia, difficulty swallowing, hematemesis, melena, nausea, poor appetite, poor fluid intake, rectal bleeding, rectal pain, vomiting, others Genitourinary: denies: burning, dysuria, flank pain, frequency, hematuria, incontinence, penile discharge, penile sore, pain, testicle pain, testicle swelling, urgency, others Neurological: denies: dizziness, fainting, headache, left sided numbness, left sided weakness, numbness, paresthesia, pre-existing deficit, right sided numbness, right sided weakness, seizure, speech problems, tingling, tremors, weakness, others Musculoskeletal: denies: back pain, gout, joint pain, joint swelling, muscle pain, muscle stiffness, neck pain, others Integumetry: denies: bruises, change in color, change in hair/nails, dryness, laceration, lesions, lumps, rash, wounds, others Allergic/Immunocompromised: denies: Difficulty Healing, Frequent Infections, Hives, Itching, others Hematologic/Lymphatic: denies: anemia, blood clots, easy bleeding, easy bruising, swollen glands, others Endocrine: denies: excessive hunger, excessive sweating, excessive thirst, excessive urination, flushing, intolerance to cold, intolerance to heat, unexplained weight gain, unexplained weight loss, others Psychiatric: denies: anxiety, bipolar disorder, depression, hopeless, panic disorder, schizophrenia, sleepless, suicidal, others All Other Systems: Reviewed and Negative Physical Exam General Appearance: Moderate Distress HEENT: Normal ENT Inspection, Pharynx Normal, TMs Normal Neck: Full Range of Motion, Non-Tender, Normal, Normal Inspection Respiratory: Respiratory Distress, Other (Coarse breath sounds) Cardiovascular: No Edema, No JVD, No Murmur, No Gallop, Normal Peripheral Pulses, Regular Rate/Rhythm Breast Exam: Deferred Gastrointestinal: No Organomegaly, Non Tender, No Pulsatile Mass, Normal Bowel Sounds, Soft Genitalia: Deferred Pelvic: Deferred Rectal: Deferred Extremities: No calf tenderness, Normal capillary refill, Normal inspection, Normal range of motion, Non-tender, No pedal edema Musculoskeletal : Apperance: Normal Neurologic: Alert, napper grinder II-XII nml as Tested, No Motor Deficits, Normal Affect, Normal Mood, No Sensory Deficits Cerebellar Function: NOT DONE Reflexes: NOT DONE Skin: Dry, Normal Color, Warm Peripheral Pulses: 3+ Radial (R), 3+ Radial (L) Lymphatic: No Adenopathy Was a procedure done? Was a procedure done?: No Differential Dx Differential Diagnosis: Anxiety, Asthma, Bronchitis, Pneumonia, Sinusitis, Pharyngitis, URI X-Ray, Labs, Meds, VS Vital Signs Date Time Temp Pulse Resp B/P (MAP) Pulse Ox O2 Delivery O2 Flow Rate FiO2 05/20/25 14:28 88 05/20/25 14:12 97.5 94 20 105/77 95 97.5 Lab Test 05/20/25 14:38 Range/Units White Blood Count 6.7 4.4-10.8 10^3/uL Red Blood Count 4.21 L 4.5-5.90 10^6/uL Hemoglobin 12.9 L 13.5-17.5 g/dL Hematocrit 37.3 L 41.0-53.0 % Mean Corpuscular Volume 88.6 80.0-100.0 fL Mean Corpuscular Hemoglobin 30.7 28.0-32.0 pg Mean Corpuscular Hemoglobin Concent 34.6 32.0-36.0 g/dL Red Cell Distribution Width 14.9 H 11.8-14.3 % Platelet Count 316 140-450 10^3/uL Mean Platelet Volume 6.0 L 6.9-10.8 fL Neutrophils (%) (Auto) 70.9 37.0-80.0 % Lymphocytes (%) (Auto) 17.4 10.0-50.0 % Monocytes (%) (Auto) 10.3 0.0-12.0 % Eosinophils (%) (Auto) 0.9 0.0-7.0 % Basophils (%) (Auto) 0.5 0.0-2.0 % Neutrophils # (Auto) 4.8 1.6-8.6 10 ^3/uL Lymphocytes # (Auto) 1.2 0.4-5.4 10 ^3/uL Monocytes # (Auto) 0.7 0-1.3 10 ^3/uL Eosinophils # (Auto) 0.1 0-0.8 10 ^3/uL Basophils # (Auto) 0 0-0.2 10 ^3/uL Nucleated Red Blood Cells 0.0 % Sodium Level 142 136-145 mmol/L Potassium Level 4.2 3.5-5.1 mmol/L Chloride Level 106 98-107 mmol/L Carbon Dioxide Level 25 20-31 mmol/L Anion Gap 11 5-15 Blood Urea Nitrogen 34 H 9-23 mg/dL Creatinine 2.06 H 0.700-1.30 mg/dL Glomerular Filtration Rate Calc 31 >90 mL/min BUN/Creatinine Ratio 16.5 10.0-20.0 Serum Glucose 104 74-106 mg/dL Calcium Level 8.8 8.7-10.4 mg/dL Troponin I High Sensitivity 8 </=54 ng/L [place] [id number] Ph: [phone] DIAGNOSTIC IMAGING Diagnostic Imaging Report : [id number] Signed PATIENT: GABRIELA AGUILAR CARO MACCT: [id number] UNIT: [id number] : 1940 LOC: ER ROOM / BED: / AGE / SEX: 85 / M ADM STATUS: REG ER SERVICE 25 ORDERING PHYSICIAN: SANJANA MAJOR MD PROCEDURE(s): CXRP - CHEST PORTABLE REASON: sob ORDER NUMBER(s): [id number], ACCESSION NUMBER(s): [id number] CHEST RADIOGRAPH Indication: sob Technique: Single frontal view of the chest was obtained Comparison: XY CHEST PORTABLE on DOS: 05/21/24, XY CHEST PORTABLE on DOS: 05/08/24, EKG on DOS: 04/20/22 FINDINGS: Lines and Tubes: Sternal wire sutures in place Lungs: Airspace disease both lung bases worse on the right than left. Pleura: No effusion. No pneumothorax. Cardiomediastinal contours: Cardiomegaly Bones: No acute osseous abnormality. IMPRESSION: 1. Worsening pulmonary vascular congestion. 2. Cardiomegaly. ATED BY: DORIAN JACKSON Jr., DO DICTATED DATE/TIME: 05/20/251503 SIGNED BY: DORIAN JACKSON Jr., SIGNED DATE/TIME: 05/20/251503 CC: Patient alert. Complaining of shortness a breath. Chest x-ray reviewed does show congestion. He is on oxygen. Kidney function elevated. WBC within normal limits. Was given steroid. Explained to the family. Continue to monitor. Time of 1ST Reevaluation: 15:40 Reevaluation 1ST: Unchanged Patient Education/Counseling: Diagnosis, Treatment Family Education/Counseling: Diagnosis, Treatment SEPSIS Sepsis Screen Date sepsis recognized/suspect: May 20, 2025 Time Sepsis recognized/suspect: 1420 Recent Procedure: No On Antibiotic Therapy: No Respiratory Rate >20: No Heart Rate >90: No Temp<36 C (96.8 F) or >38.3 C: No SBP <90 or MAP <65 mmHG: No New Acute Mental Status Change: No Is the patient on CPAP, BIPAP,: No Physician Orders Chest Portable (05/20/25 14:26) Electrocardigram (05/20/25 14:38) Vital Signs Date Time Temp Pulse Resp B/P (MAP) Pulse Ox O2 Delivery O2 Flow Rate FiO2 05/20/25 14:28 88 05/20/25 14:12 97.5 94 20 105/77 95 97.5 Laboratory Tests Test 05/20/25 14:38 White Blood Count 6.7 10^3/uL (4.4-10.8) Departure 1 Departure Time of Disposition: 16:06 Impression: Primary Impression: Acute respiratory distress Additional Impression: COPD exacerbation Disposition: ADMITTED INPATIENT Admit to: Med Surg Condition: Guarded Critical Care Note Critical Care Time?: Yes (90 min-critical care time only) Stability Stability form required: No Heart Score Heart Score: Heart Score Response (Comments) Value History Slightly Suspicious 0 EKG Normal 0 Age >65 2 Risk Factors >3 or Hx ASHD 2 Troponin Normal limit 0 Total 4 I personally scribed for SANJANA MAJOR MD ([email or web address]) on 05/20/25 at 15:31. Electronically submitted by Princess Lorenz ([email or web address]). I personally scribed for SANJANA MAJOR MD ([email or web address]) on 05/20/25 at 15:48. Electronically submitted by Princess Lorenz [email or web address]). SANJANA MAJOR MD May 20, 2025 15:31
[2025-05-20] MEDS ORDERED: ONDANSETRON HCL 4 MG/2 ML VIAL IV PRN (19:30)
[2025-05-20 20:15] VITALS: BP 112/78; PULSE 81; RESP 18; O2SAT 98
[2025-05-20 20:22] VITALS: PULSE 81; RESP 18; O2SAT 98
[2025-05-20] MEDS: ALBUTEROL SULF 2.5 MG/0.5ML(0.5%) NEB SOLN NEB PRN (20:22)
[2025-05-20 20:27] VITALS: PULSE 75; RESP 16; O2SAT 100
[2025-05-20 21:50] VITALS: BP 141/74; PULSE 66; RESP 16; TEMP 97.5; O2SAT 97
[2025-05-20] MEDS: ATORVASTATIN 20 MG TAB PO SCH (22:00)
[2025-05-20 22:31] VITALS: BP 141/74; PULSE 66; PULSE 96; RESP 16; RESP 19; TEMP 97.5; O2SAT 100; O2SAT 97
[2025-05-21] VITALS (8 sets, daily range): BP systolic 95–140; BP diastolic 59–81; PULSE 66–75; RESP 16–18; TEMP 97.9–98.2; O2SAT 94–100
--- NOTE | 2025-05-21 01:16 | DVHHP2 ---
History of Present Illness Reason for Visit: Shortness for breath History of Present Illness 85-year-old male presents for evaluation of shortness for breath. Patient reports a two week history of worsening shortness for breath. He reports having to use oxygen around the clock. Reports generalized weakness and fatigue. No f ever or chills. Past Medical History Hypertension, CHF, CAD Past Surgical History CABG Family History Noncontributory Smoke: No ALCOHOL: none Drugs: None Lives: with Family Review of Systems Review of Systems Review of systems are currently negative otherwise addressed in HPI. Allergies: Coded Allergies: NO KNOWN ALLERGIES (Unverified , 09/20/17) Medications Current Medications Medications Dose Ordered Sig/Jen Route Start Time Stop Time Status Last Admin Dose Admin Albuterol 2.5 mg Q6HPRN PRN NEB 05/20/25 19:30 05/20/25 20:22 2.5 MG Atorvastatin Calcium 20 mg HS PO 05/20/25 22:00 Ondansetron HCl 4 mg Q4HP PRN IV 05/20/25 19:30 Docusate Sodium 100 mg BIDPRN PRN PO 05/20/25 19:30 Enoxaparin Sodium 30 mg DAILY SC 05/21/25 10:00 Acetaminophen 650 mg Q6HP PRN PO 05/20/25 19:30 Exam Vital Signs Vital Signs Date Time Temp Pulse Resp B/P (MAP) Pulse Ox O2 Delivery O2 Flow Rate FiO2 05/21/25 00:56 97.9 70 16 140/80 (100) 100 97.9 05/20/25 20:22 Nasal Cannula 2.0 05/20/25 20:22 28 Exam Gen: 85-year-old male in mild distress Skin: Warm, dry, normal color and texture, no rash. HEENT: Normocephalic atraumatic, mucous membranes moist and pink. Neck: Cervical and supraclavicular nodes normal without enlargement, trachea is midline, thyroid gland is normal without masses. Pulmonary: Clear to auscultation and percussion bilaterally. Cardiac: Regular rate and rhythm. No murmur Abdomen: Soft, nontender, nondistended, bowel sounds present all 4 quadrants, no guarding, no rigidity, no organomegaly. Extremities: No cyanosis, clubbing, no edema Neuro: Cranial nerves II through XII grossly intact, normal affect and speech, no focal motor deficits. Labs/Xrays ORDERING PHYSICIAN: SANJANA MAJOR MD PROCEDURE(s): CXRP - CHEST PORTABLE REASON: sob ORDER NUMBER(s): [id number], ACCESSION NUMBER(s): [id number] CHEST RADIOGRAPH Indication: sob Technique: Single frontal view of the chest was obtained Comparison: XY CHEST PORTABLE on DOS: 05/21/24, XY CHEST PORTABLE on DOS: 05/08/24, EKG on DOS: 04/20/22 FINDINGS: Lines and Tubes: Sternal wire sutures in place Lungs: Airspace disease both lung bases worse on the right than left. Pleura: No effusion. No pneumothorax. Cardiomediastinal contours: Cardiomegaly Bones: No acute osseous abnormality. IMPRESSION: 1. Worsening pulmonary vascular congestion. 2. Cardiomegaly. Labs Test 05/20/25 14:38 Range/Units White Blood Count 6.7 4.4-10.8 10^3/uL Red Blood Count 4.21 L 4.5-5.90 10^6/uL Hemoglobin 12.9 L 13.5-17.5 g/dL Hematocrit 37.3 L 41.0-53.0 % Mean Corpuscular Volume 88.6 80.0-100.0 fL Mean Corpuscular Hemoglobin 30.7 28.0-32.0 pg Mean Corpuscular Hemoglobin Concent 34.6 32.0-36.0 g/dL Red Cell Distribution Width 14.9 H 11.8-14.3 % Platelet Count 316 140-450 10^3/uL Mean Platelet Volume 6.0 L 6.9-10.8 fL Neutrophils (%) (Auto) 70.9 37.0-80.0 % Lymphocytes (%) (Auto) 17.4 10.0-50.0 % Monocytes (%) (Auto) 10.3 0.0-12.0 % Eosinophils (%) (Auto) 0.9 0.0-7.0 % Basophils (%) (Auto) 0.5 0.0-2.0 % Neutrophils # (Auto) 4.8 1.6-8.6 10 ^3/uL Lymphocytes # (Auto) 1.2 0.4-5.4 10 ^3/uL Monocytes # (Auto) 0.7 0-1.3 10 ^3/uL Eosinophils # (Auto) 0.1 0-0.8 10 ^3/uL Basophils # (Auto) 0 0-0.2 10 ^3/uL Nucleated Red Blood Cells 0.0 % Sodium Level 142 136-145 mmol/L Potassium Level 4.2 3.5-5.1 mmol/L Chloride Level 106 98-107 mmol/L Carbon Dioxide Level 25 20-31 mmol/L Anion Gap 11 5-15 Blood Urea Nitrogen 34 H 9-23 mg/dL Creatinine 2.06 H 0.700-1.30 mg/dL Glomerular Filtration Rate Calc 31 >90 mL/min BUN/Creatinine Ratio 16.5 10.0-20.0 Serum Glucose 104 74-106 mg/dL Calcium Level 8.8 8.7-10.4 mg/dL Troponin I High Sensitivity 8 </=54 ng/L B-Type Natriuretic Peptide 115.07 0-100 pg/mL SEPSIS Sepsis Screen Date sepsis recognized/suspect: May 20, 2025 Time Sepsis recognized/suspect: 1419 Recent Procedure: No On Antibiotic Therapy: No Respiratory Rate >20: No Heart Rate >90: No Temp<36 C (96.8 F) or >38.3 C: No SBP <90 or MAP <65 mmHG: No New Acute Mental Status Change: No Is the patient on CPAP, BIPAP,: No Physician Orders Basic Metabolic Panel (05/21/25 04:00) Albuterol Medneb (Ventolin Medneb) (05/20/25 19:30) Atorvastatin (Lipitor) (05/20/25 22:00) Admit (05/20/25 19:30) Ondansetron Hcl (Zofran) (05/20/25 19:30) Docusate Sodium Capsule (Colace Capsule) (05/20/25 19:30) Cardiac Diet-2gna,Lofat,Lochol (05/21/25 Breakfast) Echo 2d Mode Cardiac Dop (05/20/25 19:30) Condition: Stable (05/20/25 19:30) Enoxaparin Sodium (Lovenox) (05/21/25 10:00) Acetaminophen Tablet (Tylenol Tablet) (05/20/25 19:30) Bedrest With Bathroom Privileg (05/20/25 19:30) Vital Signs Date Time Temp Pulse Resp B/P (MAP) Pulse Ox O2 Delivery O2 Flow Rate FiO2 05/21/25 00:56 97.9 70 16 140/80 (100) 100 97.9 05/20/25 22:31 97.5 66 16 141/74 (96) 97 97.5 05/20/25 21:50 97.5 66 16 141/74 (96) 97 97.5 05/20/25 20:27 75 16 100 05/20/25 20:22 81 18 98 05/20/25 20:22 98 Nasal Cannula 2.0 05/20/25 20:22 98 Nasal Cannula* 2 28 05/20/25 20:15 81 18 112/78 98 2.0 05/20/25 18:37 97.6 78 16 112/78 (89) 97 97.6 Laboratory Tests Test 05/20/25 14:38 White Blood Count 6.7 10^3/uL (4.4-10.8) Medications Medications Dose Ordered Sig/Jen Route Start Time Stop Time Status Last Admin Dose Admin Albuterol 2.5 mg Q6HPRN PRN NEB 05/20/25 19:30 05/20/25 20:22 2.5 MG Assessment/Plan Assessment/Plan Assessment Acute on chronic respiratory failure Chronic kidney disease CHF Plan Admit the patient to Med surge to the hospitalist Resume home medications Med nebs Echocardiogram pending Continue treatment per orders Plan discussed with: Patient My Orders Orders - JIN PAGAN AGACNLaith Procedure Category Date Status Time Basic Metabolic Panel LAB 05/21/25 Logged 04:00 Albuterol Medneb PHA 05/20/25 In Process (Ventolin Medneb) 19:30 Atorvastatin (Lipitor) PHA 05/20/25 In Process 22:00 Admit ADMIT 05/20/25 Transmitted 19:30 Ondansetron Hcl PHA 05/20/25 In Process (Zofran) 19:30 Docusate Sodium PHA 05/20/25 In Process Capsule (Colace 19:30 Cardiac DIET 05/21/25 Transmitted Diet-2gna,Lofat,Lochol Breakfast Echo 2d Mode Cardiac US 05/20/25 Logged DOP 19:30 Condition: Stable GERI 05/20/25 In Process 19:30 Enoxaparin Sodium PHA 05/21/25 In Process (Lovenox) 10:00 Acetaminophen Tablet PHA 05/20/25 In Process (Tylenol Tablet) 19:30 Bedrest With Bathroom GERI 05/20/25 In Process Privileg 19:30 Date of Service: May 20, 2025 Billing Provider: JIN PAGAN Common Visit Codes: [id number] INP/OBS CARE (HIGH) JIN PAGAN May 21, 2025 01:16
--- NOTE | 2025-05-21 06:12 | ECG ---
[facility] Test Date: 2025-05-20 Test Time: 14:28:05 Pat Name: GABRIELA AGUILAR CARO Department: ED Room: 0294 A Gender: M [employer] Clerk: DEREJE : 1940 Requested By: SANJANA MAJOR Order Number: [id number] Reading MD: Boni Solis Measurements Intervals [place] Rate: 88 P: 7 MI: 179 QRS: 161 QRSD: 87 T: 15 QT: 406 QTc: 492 Interpretive Statements Sinus rhythm Probable right ventricular hypertrophy Borderline prolonged QT interval Electronically Signed On 05-21-2025 17:47:54 PST by Boni Solis Please click the below link to view image of tracing.
[2025-05-21 06:35] LABS: Chloride 106 mmol/L (98-107); Potassium 4.4 mmol/L (3.5-5.1); Sodium 141 mmol/L (136-145)
[2025-05-21 06:36] LABS: Anion Gap 12 (5-15); Calcium 8.8 mg/dL (8.7-10.4); Carbon Dioxide 23 mmol/L (20-31)
[2025-05-21 06:41] LABS: BUN/Creatinine Ratio 18.3 (10.0-20.0); Glucose 78 mg/dL (74-106)
[2025-05-21 06:45] LABS: Blood Urea Nitrogen 33 mg/dL (9-23)
[2025-05-21] MEDS: FUROSEMIDE 40 MG TAB PO SCH (10:24)
[2025-05-21] MEDS: ENOXAPARIN SOD 30 MG/0.3 ML SYRINGE SC SCH (10:24)
--- NOTE | 2025-05-21 15:00 | DVHPN2 ---
Subjective OVERNIGHT EVENTS NOTED. PATIENT'S HAS A HERE FOR SHORTNESS OF BREATHS HE DOES HAVE KNOWN HISTORY OF CHRONIC RESPIRATORY FAILURE WITH THE CONGESTIVE HEART FAILURE WITH A KNOWN CAD STATUS POST CABG. Changes from previous H/P or p: No Changes Objective Vitals Vital Signs Date Time Temp Pulse Resp B/P (MAP) Pulse Ox O2 Delivery O2 Flow Rate FiO2 05/21/25 13:00 98.0 70 17 109/59 (76) 99 98.0 05/20/25 22:31 Nasal Cannula* 2 28 Intake/Output Intake and Output 05/21/25 07:00 Intake Total 300 ml Balance 300 ml Intake Oral 300 ml # Voids 2 # Bowel Movements 1 Exam HEENT PUPILS ARE REACTIVE NECK IS SUPPLE CV IS S1-S2 REGULAR RATE AND RHYTHM RESPIRATORY ARE CLEAR GI POSITIVE BOWEL SOUND EXTREMITY NO EDEMA DECK CADET NO MOTOR DEFICIT Medications Current Medications Medications Dose Ordered Sig/Jen Route Start Time Stop Time Status Last Admin Dose Admin Albuterol 2.5 mg Q6HPRN PRN NEB 05/20/25 19:30 05/20/25 20:22 2.5 MG Atorvastatin Calcium 20 mg HS PO 05/20/25 22:00 Ondansetron HCl 4 mg Q4HP PRN IV 05/20/25 19:30 Docusate Sodium 100 mg BIDPRN PRN PO 05/20/25 19:30 Enoxaparin Sodium 30 mg DAILY SC 05/21/25 10:00 05/21/25 10:24 30 MG Acetaminophen 650 mg Q6HP PRN PO 05/20/25 19:30 Furosemide 40 mg DAILY PO 05/21/25 10:00 05/21/25 10:24 40 MG Laboratory Results Laboratory Tests 05/20/25 14:38 05/21/25 05:50 Chemistry Test 05/21/25 05:50 Calcium Level 8.8 mg/dL (8.7-10.4) Assessment/Plan Assessment/Plan 85-YEAR-OLD MALE WITH A KNOWN HISTORY OF CAD STATUS POST CABG, CONGESTIVE HEART FAILURE, HYPERTENSION PRESENTED TO THE HOSPITAL WITH SHORTNESS OF BREATHS FOUND TO HAVE 1. 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 ACUTE CHF EXACERBATION CURRENTLY UNSPECIFIED 3. CAD STATUS POST CABG 4. COPD 5. HYPERTENSION -CONTINUE LASIX, 2D ECHO CARDIOLOGY CONSULTATION Plan discussed with: Patient Problem List: (1) CAD (coronary artery disease) of artery bypass graft Date of Service: May 21, 2025 Billing Provider: RAUL SPIVEY MD Common Visit Codes: [id number] INP/OBS CARE(HIGH) RAUL SPIVEY MD May 21, 2025 15:00
--- NOTE | 2025-05-21 19:09 | DVHSR ---
APPROVED REPORT EXAM: Two-dimensional and M-mode echocardiogram with Doppler and color Doppler. Blood Pressure: 128/81 mmHg INDICATION EF RISK FACTORS Height: 5'7", Weight: 125 DIMENSIONS LVDd 4.4 (3.8-5.7cm) LA (2D) 3.7 (1.9-4.0cm) Aortic Root 3.4 (2.0-3.7cm) LVDs 2.5 (2.5-4.0cm) LA (MM) (1.9-4.0cm) Aortic Cusp Exc 2.0 (1.5-2.0cm) EF (%) 75.0 (55-70%) Rt. Atrium (1.9-4.0cm) Asc. Aorta 3.2 cm IVSd 1.4 (0.7-1.1cm) RV (D) (1.8-2.4cm) PWd 0.9 (0.7-1.1cm) Mitral Valve Mitral Mitral Stenosis E wave 0.48m/s MV Mean GR. mmHg A wave 0.72m/s MV Peak GR. mmHg E/A ratio 0.7 2D MVA cm2 DECEL Time 345ms PRESS 1/2 Time ms Aortic Valve Aortic Valve Aortic Stenosis V1 0.65m/s AO Mean GR. 4mmHg V2 1.41m/s AO Peak GR. 8mmHg LVOT Diameter 2.5 (1.8-2.4cm) Doppler LALO 2.26cm2 AI P 1/2 Time 428.12ms Pulmonic Valve V2 0.79m/s Tricuspid Valve TR Velocity 3.32m/s RVSP 52mmHg Other Information Quality : Technically Limited Rhythm : Technically limited study due to body habitus. Conclusion Sinus rhythm. Concentric LVH. Mild aortic sclerosis. RV enlargement. Hypertrophy as well. Valves appear to be structurally normal. Left ventricular function is preserved at 60% with normal RV function. Mild aortic insufficiency. Moderate tricuspid regurgitation. Right ventricular systolic pressure is elevated consistent with pulmonary hypertension. 52 mmHg. No intracardiac masses thrombi or vegetations discernible.
[2025-05-22] VITALS (9 sets, daily range): BP systolic 102–128; BP diastolic 66–86; PULSE 18–78; RESP 17–18; TEMP 97.6–98.1; O2SAT 95–99
--- NOTE | 2025-05-22 16:33 | DVHPN2 ---
Subjective OVERNIGHT EVENTS NOTED. PATIENT'S HAS A HERE FOR SHORTNESS OF BREATHS HE DOES HAVE KNOWN HISTORY OF CHRONIC RESPIRATORY FAILURE WITH THE CONGESTIVE HEART FAILURE WITH A KNOWN CAD STATUS POST CABG. Patient is complaining of chest pain repeat troponin has been ordered. Cardiology will be consulted. Changes from previous H/P or p: No Changes Objective Vitals Vital Signs Date Time Temp Pulse Resp B/P (MAP) Pulse Ox O2 Delivery O2 Flow Rate FiO2 05/22/25 12:43 98.0 76 17 110/68 (82) 95 98.0 05/22/25 09:39 Nasal Cannula 2.0 05/22/25 09:39 28 Intake/Output Intake and Output 05/22/25 07:00 Intake Total 1070 ml Output Total 1450 ml Balance -380 ml Intake Oral 1070 ml Output Urine Total 1450 ml # Bowel Movements 2 Exam HEENT PUPILS ARE REACTIVE NECK IS SUPPLE CV IS S1-S2 REGULAR RATE AND RHYTHM RESPIRATORY ARE CLEAR GI POSITIVE BOWEL SOUND EXTREMITY NO EDEMA EDGER FEEDER NO MOTOR DEFICIT Medications Current Medications Medications Dose Ordered Sig/Jen Route Start Time Stop Time Status Last Admin Dose Admin Albuterol 2.5 mg Q6HPRN PRN NEB 05/20/25 19:30 05/20/25 20:22 2.5 MG Atorvastatin Calcium 20 mg HS PO 05/20/25 22:00 05/21/25 21:24 20 MG Ondansetron HCl 4 mg Q4HP PRN IV 05/20/25 19:30 Docusate Sodium 100 mg BIDPRN PRN PO 05/20/25 19:30 Enoxaparin Sodium 30 mg DAILY SC 05/21/25 10:00 05/22/25 10:10 30 MG Acetaminophen 650 mg Q6HP PRN PO 05/20/25 19:30 Furosemide 40 mg DAILY PO 05/21/25 10:00 05/22/25 10:10 40 MG Laboratory Results Laboratory Tests 05/20/25 14:38 05/21/25 05:50 Assessment/Plan Assessment/Plan 85-YEAR-OLD MALE WITH A KNOWN HISTORY OF CAD STATUS POST CABG, CONGESTIVE HEART FAILURE, HYPERTENSION PRESENTED TO THE HOSPITAL WITH SHORTNESS OF BREATHS FOUND TO HAVE 1. 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 ACUTE CHF EXACERBATION with a likely diastolic dysfunction 3. CAD STATUS POST CABG 4. COPD 5. HYPERTENSION -CONTINUE LASIX, 2D ECHO CARDIOLOGY CONSULTATION -physical therapy evaluation and treatment Plan discussed with: Patient My Orders Orders - RAUL SPIVEY MD Procedure Category Date Status Time Troponin-I Hs LAB 05/22/25 In Process 15:49 Date of Service: May 22, 2025 Billing Provider: RAUL SPIVEY MD Common Visit Codes: [id number] INP/OBS CARE(HIGH) RAUL SPIVEY MD May 22, 2025 16:33
[2025-05-22] MEDS: ACETAMINOPHEN 325 MG TAB PO PRN (21:26)
[2025-05-23] VITALS (13 sets, daily range): BP systolic 95–126; BP diastolic 60–83; PULSE 60–71; RESP 16–20; TEMP 85.4–97.9; O2SAT 97–100
[2025-05-24] VITALS (7 sets, daily range): BP systolic 96–121; BP diastolic 59–76; PULSE 68–86; RESP 18–20; TEMP 97.4–98.4; O2SAT 97–98
[2025-05-24] MEDS: DOCUSATE SOD 100 MG CAP PO PRN (15:12)
[2025-05-25] VITALS (9 sets, daily range): BP systolic 93–119; BP diastolic 59–74; PULSE 77–89; RESP 18–20; TEMP 97–98.4; O2SAT 96–100
--- NOTE | 2025-05-25 10:16 | DVHPN2 ---
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 ANEMIA vital signs Vital Sign Date Time Temp Pulse Resp B/P (MAP) Pulse Ox O2 Delivery O2 Flow Rate FiO2 05/25/25 08:46 105/70 05/25/25 08:40 98.2 82 18 97 98.2 05/25/25 08:11 Nasal Cannula* 1 24 Total Intake and Output 05/24/25 05/24/25 05/25/25 15:00 23:00 07:00 Intake Total 850 ml 600 ml Output Total 800 ml 700 ml Balance 50 ml -100 ml medications Current Medications Medications Dose Ordered Sig/Jen Route Start Time Stop Time Status Last Admin Dose Admin Albuterol 2.5 mg Q6HPRN PRN NEB 05/20/25 19:30 05/24/25 21:06 2.5 MG Atorvastatin Calcium 20 mg HS PO 05/20/25 22:00 05/24/25 21:08 20 MG Ondansetron HCl 4 mg Q4HP PRN IV 05/20/25 19:30 Docusate Sodium 100 mg BIDPRN PRN PO 05/20/25 19:30 05/25/25 08:46 100 MG Enoxaparin Sodium 30 mg DAILY SC 05/21/25 10:00 05/25/25 08:50 30 MG Acetaminophen 650 mg Q6HP PRN PO 05/20/25 19:30 05/22/25 21:26 650 MG Furosemide 40 mg DAILY PO 05/21/25 10:00 05/25/25 08:46 40 MG laboratory and microbiology Laboratory Tests 05/21/25 05:50 05/20/25 14:38 Test 05/21/25 05:50 Range/Units Serum Glucose 78 74-106 mg/dL Problem List PROGRESSIVE SX OF SOB BNP NORMAL ECHO EF >55% DIASTOLIC DYSFUNCTION 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
--- NOTE | 2025-05-25 13:24 | DVHPN2 ---
Reviewed: Care Plan, H&P, Labs, Medications, Previous Orders Changes from previous H/P or p: No Changes General: Per HPI Objective Vitals Vital Signs Date Time Temp Pulse Resp B/P (MAP) Pulse Ox O2 Delivery O2 Flow Rate FiO2 05/25/25 12:47 97.0 83 20 112/71 (85) 97 97.0 05/25/25 08:11 Nasal Cannula* 1 24 Intake/Output Intake and Output 05/25/25 07:00 Intake Total 1450 ml Output Total 1500 ml Balance -50 ml Intake Oral 1450 ml Output Urine Total 1500 ml # Bowel Movements 1 Medications Current Medications Medications Dose Ordered Sig/Jen Route Start Time Stop Time Status Last Admin Dose Admin Albuterol 2.5 mg Q6HPRN PRN NEB 05/20/25 19:30 05/24/25 21:06 2.5 MG Atorvastatin Calcium 20 mg HS PO 05/20/25 22:00 05/24/25 21:08 20 MG Ondansetron HCl 4 mg Q4HP PRN IV 05/20/25 19:30 Docusate Sodium 100 mg BIDPRN PRN PO 05/20/25 19:30 05/25/25 08:46 100 MG Enoxaparin Sodium 30 mg DAILY SC 05/21/25 10:00 05/25/25 08:50 30 MG Acetaminophen 650 mg Q6HP PRN PO 05/20/25 19:30 05/22/25 21:26 650 MG Furosemide 40 mg DAILY PO 05/21/25 10:00 05/25/25 08:46 40 MG Sildenafil Citrate 20 mg TID@08,14,20 PO 05/25/25 14:00 Laboratory Results Laboratory Tests 05/20/25 14:38 05/21/25 05:50 Labs and/or images reviewed: Labs reviewed by me, Image(s) reviewed by me Assessment/Plan Assessment/Plan 85-YEAR-OLD MALE WITH A KNOWN HISTORY OF CAD STATUS POST CABG, CONGESTIVE HEART FAILURE, HYPERTENSION PRESENTED TO THE HOSPITAL WITH SHORTNESS OF BREATHS FOUND TO HAVE 1. 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 ACUTE CHF EXACERBATION with a likely diastolic dysfunction 3. CAD STATUS POST CABG 4. COPD 5. HYPERTENSION -CONTINUE LASIX, 2D ECHO CARDIOLOGY CONSULTATION -physical therapy evaluation and treatment Plan discussed with: Patient Date of Service: May 23, 2025 Billing Provider: JAMA LIANG DO Common Visit Codes: [id number] INP/OBS CARE(HIGH) JAMA LIANG DO May 25, 2025 13:23
[2025-05-25] MEDS: SILDENAFIL CITRATE 20 MG TAB PO SCH (13:42)
[2025-05-26 01:00] VITALS: BP 121/78; PULSE 78; RESP 20; TEMP 98.3; O2SAT 96
[2025-05-26 05:00] VITALS: BP 112/66; PULSE 90; RESP 20; TEMP 97.2; O2SAT 98
[2025-05-26 08:42] VITALS: BP 117/78; PULSE 82; RESP 17; TEMP 97.6; O2SAT 98
[2025-05-26 12:34] VITALS: BP 113/72; PULSE 67; RESP 17; TEMP 98; O2SAT 97
--- NOTE | 2025-05-26 14:02 | DVHPN2 ---
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 ANEMIA vital signs Vital Sign Date Time Temp Pulse Resp B/P (MAP) Pulse Ox O2 Delivery O2 Flow Rate FiO2 05/26/25 12:34 98.0 67 17 113/72 (86) 97 98.0 05/26/25 08:01 Nasal Cannula* 1 24 Total Intake and Output 05/25/25 05/25/25 05/26/25 15:00 23:00 07:00 Intake Total 700 ml 650 ml Output Total 400 ml 650 ml Balance 300 ml 0 ml medications Current Medications Medications Dose Ordered Sig/Jen Route Start Time Stop Time Status Last Admin Dose Admin Atorvastatin Calcium 20 mg HS PO 05/20/25 22:00 05/25/25 22:18 20 MG Ondansetron HCl 4 mg Q4HP PRN IV 05/20/25 19:30 Docusate Sodium 100 mg BIDPRN PRN PO 05/20/25 19:30 05/25/25 08:46 100 MG Enoxaparin Sodium 30 mg DAILY SC 05/21/25 10:00 05/26/25 09:21 30 MG Acetaminophen 650 mg Q6HP PRN PO 05/20/25 19:30 05/22/25 21:26 650 MG Furosemide 40 mg DAILY PO 05/21/25 10:00 05/26/25 09:19 40 MG Sildenafil Citrate 20 mg TID@08,14,20 PO 05/25/25 14:00 05/26/25 08:01 20 MG laboratory and microbiology Laboratory Tests 05/21/25 05:50 05/20/25 14:38 Test 05/21/25 05:50 Range/Units Serum Glucose 78 74-106 mg/dL Problem List PROGRESSIVE SX OF SOB BNP NORMAL ECHO EF >55% DIASTOLIC DYSFUNCTION 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
[2025-05-26] MEDS ORDERED: FURO40TA4 PO (16:05)
[2025-05-26 16:20] VITALS: BP 104/59; TEMP 36.7
[2025-05-26 17:01] VITALS: BP 101/56; PULSE 71; RESP 17; TEMP 97.6; O2SAT 93
--- NOTE | 2025-05-28 00:16 | DVHPN2 ---
Reviewed: Care Plan, H&P, Labs, Medications, Previous Orders Changes from previous H/P or p: No Changes General: Per HPI Objective Vitals Vital Signs Date Time Temp Pulse Resp B/P (MAP) Pulse Ox O2 Delivery O2 Flow Rate FiO2 05/26/25 17:01 97.6 71 17 101/56 (71) 93 97.6 05/26/25 08:01 Nasal Cannula* 1 24 Laboratory Results Laboratory Tests 05/20/25 14:38 05/21/25 05:50 Assessment/Plan Assessment/Plan 85-YEAR-OLD MALE WITH A KNOWN HISTORY OF CAD STATUS POST CABG, CONGESTIVE HEART FAILURE, HYPERTENSION PRESENTED TO THE HOSPITAL WITH SHORTNESS OF BREATHS FOUND TO HAVE 1. 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 ACUTE CHF EXACERBATION with a likely diastolic dysfunction 3. CAD STATUS POST CABG 4. COPD 5. HYPERTENSION -CONTINUE LASIX, 2D ECHO CARDIOLOGY CONSULTATION -physical therapy evaluation and treatment Plan discussed with: Patient Date of Service: May 24, 2025 Billing Provider: JAMA LIANG DO Common Visit Codes: [id number] INP/OBS CARE(HIGH) JAMA LIANG DO May 28, 2025 00:16
--- NOTE | 2025-05-28 00:17 | DVHPN2 ---
Reviewed: Care Plan, H&P, Labs, Medications, Previous Orders Changes from previous H/P or p: No Changes General: Per HPI Objective Vitals Vital Signs Date Time Temp Pulse Resp B/P (MAP) Pulse Ox O2 Delivery O2 Flow Rate FiO2 05/26/25 17:01 97.6 71 17 101/56 (71) 93 97.6 05/26/25 08:01 Nasal Cannula* 1 24 Laboratory Results Laboratory Tests 05/20/25 14:38 05/21/25 05:50 Assessment/Plan Assessment/Plan 85-YEAR-OLD MALE WITH A KNOWN HISTORY OF CAD STATUS POST CABG, CONGESTIVE HEART FAILURE, HYPERTENSION PRESENTED TO THE HOSPITAL WITH SHORTNESS OF BREATHS FOUND TO HAVE 1. 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 ACUTE CHF EXACERBATION with a likely diastolic dysfunction 3. CAD STATUS POST CABG 4. COPD 5. HYPERTENSION -CONTINUE LASIX, 2D ECHO CARDIOLOGY CONSULTATION -physical therapy evaluation and treatment Plan discussed with: Patient Date of Service: May 25, 2025 Billing Provider: JAMA LIANG DO Common Visit Codes: [id number] INP/OBS CARE(HIGH) JAMA LIANG DO May 28, 2025 00:17
--- NOTE | 2025-05-28 00:18 | DVHDS2 ---
Discharge Summary Date of Admission May 20, 2025 at 19:30 Date of Discharge: May 26, 2025 Labs/Diagnostic Data: Laboratory Results Test 05/22/25 16:02 05/21/25 05:50 05/20/25 14:38 Troponin I High Sensitivity 8 ng/L (</=54) Sodium Level 141 mmol/L (136-145) Potassium Level 4.4 mmol/L (3.5-5.1) Chloride Level 106 mmol/L (98-107) Carbon Dioxide Level 23 mmol/L (20-31) Anion Gap 12 (5-15) Blood Urea Nitrogen 33 mg/dL (9-23) Creatinine 1.80 mg/dL (0.700-1.30) Glomerular Filtration Rate Calc 37 mL/min (>90) BUN/Creatinine Ratio 18.3 (10.0-20.0) Serum Glucose 78 mg/dL (74-106) Calcium Level 8.8 mg/dL (8.7-10.4) White Blood Count 6.7 10^3/uL (4.4-10.8) Red Blood Count 4.21 10^6/uL (4.5-5.90) Hemoglobin 12.9 g/dL (13.5-17.5) Hematocrit 37.3 % (41.0-53.0) Mean Corpuscular Volume 88.6 fL (80.0-100.0) Mean Corpuscular Hemoglobin 30.7 pg (28.0-32.0) Mean Corpuscular Hemoglobin Concent 34.6 g/dL (32.0-36.0) Red Cell Distribution Width 14.9 % (11.8-14.3) Platelet Count 316 10^3/uL (140-450) Mean Platelet Volume 6.0 fL (6.9-10.8) Neutrophils (%) (Auto) 70.9 % (37.0-80.0) Lymphocytes (%) (Auto) 17.4 % (10.0-50.0) Monocytes (%) (Auto) 10.3 % (0.0-12.0) Eosinophils (%) (Auto) 0.9 % (0.0-7.0) Basophils (%) (Auto) 0.5 % (0.0-2.0) Neutrophils # (Auto) 4.8 10 ^3/uL (1.6-8.6) Lymphocytes # (Auto) 1.2 10 ^3/uL (0.4-5.4) Monocytes # (Auto) 0.7 10 ^3/uL (0-1.3) Eosinophils # (Auto) 0.1 10 ^3/uL (0-0.8) Basophils # (Auto) 0 10 ^3/uL (0-0.2) Nucleated Red Blood Cells 0.0 % B-Type Natriuretic Peptide 115.07 pg/mL (0-100) Other Laboratory Tests 05/21/25 05:50 05/20/25 14:38 Brief Hx & Hospital Course: 85-YEAR-OLD MALE WITH A KNOWN HISTORY OF CAD STATUS POST CABG, CONGESTIVE HEART FAILURE, HYPERTENSION PRESENTED TO THE HOSPITAL WITH SHORTNESS OF BREATHS FOUND TO HAVE 1. 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 ACUTE CHF EXACERBATION with a likely diastolic dysfunction 3. CAD STATUS POST CABG 4. COPD 5. HYPERTENSION improving significantly discharged to home Condition at Discharge: Fair Final Diagnosis/Problems List acute diastolic HF exacerbation Discharge Disposition: Home Discharge Instruct/Medications Diet: Regular Activity: No Restrictions, As Tolerated Follow Up/Referral: PCP and cardiology in 7 days Medications: lasix and home medicadtions Scheduled Albuterol Sulfate (Ventolin Mdi), 90 MCG IN BID Aspirin (Aspir-Low), 81 MG PO DAILY, (Reported) Atorvastatin Calcium (Lipitor), 1 TAB PO DAILY, (Reported) Cefpodoxime Proxetil (Cefpodoxime Proxetil), 1 TAB PO BID Doxycycline Monohydrate (Doxycycline Monohydrate), 1 CAP PO BID Fluconazole (Fluconazole), 1 TAB PO DAILY Furosemide (Furosemide), 40 MG PO DAILY Lactulose (Lactulose), 10 GM PO TID Metoclopramide Hcl (Reglan), 10 MG PO BID Nitroglycerin (Ntrostat Sublingual), 0.4 MG SL PRN, (Reported) Omeprazole (Omeprazole Dr), 40 MG PO DAILY Prednisone (Prednisone), 40 MG PO DAILY Sodium Phosphates (Fleet Enema Six Pack), 1 BOX RE DAILY Miscellaneous Medications Hydrocodone-Acetaminophen (Hydrocodone Bitartrate/AC 5-325 mg), 1 TAB PO, (Reported) Trazodone Hcl (Trazodone Hcl), 50 MG PO, (Reported) Discharge Statement: "Patient was advised to return to the ER or call 911 if any headaches, dizziness, shortness of breath, chest pain, abdominal pain, bleeding, fevers, or worsening of medical condition. Patient was counseled about treatment plan, medications, possible side effects, patientverbalized understanding. All questions were answered to the best of my ability. This discharge took greater then 30 minutes in planning, reviewing documentation, counseling the patient, and discussing with other team members." ASSESSMENT ASSESSMENT Assessment acute diastolic HF exacerbation Date of Service: May 26, 2025 Billing Provider: JAMA LIANG DO Common Visit Codes: [id number] DISCH DAY >30min JAMA LIANG DO May 28, 2025 00:18
--- NOTE | 2025-05-29 11:59 | DVHPN2 ---
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
--- NOTE | 2025-05-29 12:00 | DVHPN2 ---
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
== END 2025-05-26 17:13 | disposition home or self-care (01) | DRG 291 ==
LOC: ER 14:09 → OVERFLOW 19:30 → WEST WING 21:40
PROVIDERS: ADMIT Hospitalist; ATTEND Hospitalist
DX: I13.0 Hypertensive heart and chronic kidney disease with heart failure and stage 1 through stage 4 chronic kidney disease, or unspecified chronic kidney disease (principal); I50.33 Acute on chronic diastolic (congestive) heart failure; J44.1 Chronic obstructive pulmonary disease with (acute) exacerbation; Z95.1 Presence of aortocoronary bypass graft; N18.2 Chronic kidney disease, stage 2 (mild); I25.10 Atherosclerotic heart disease of native coronary artery without angina pectoris
CPT/HCPCS: 36415; 71045; 80048; 83880; 84484; 85025; 93005; 93306; 94640; 99291; 99292; G0378

== ENCOUNTER → 2025-06-25 | Outpatient (CLI) | payer OTHER, MEDICAID ==
[~2025-06-25] MED LIST changes: +FURO40TA4 PO
[2025-06-25 11:17] LABS: Urine Protein, UAD 1+ (Negative)
[2025-06-25 11:19] LABS: Anion Gap 12 (5-15); Calcium 9.0 mg/dL (8.7-10.4); Carbon Dioxide 23 mmol/L (20-31); Chloride 105 mmol/L (98-107); Potassium 4.5 mmol/L (3.5-5.1); Sodium 140 mmol/L (136-145)
[2025-06-25 11:20] LABS: BUN/Creatinine Ratio 14.6 (10.0-20.0); Glucose 79 mg/dL (74-106)
[2025-06-25 11:21] LABS: Total Protein 7.6 g/dL (5.7-8.2)
[2025-06-25 11:22] LABS: Albumin 4.0 g/dL (3.2-4.8); Bilirubin, Total 0.4 mg/dL (0.2-1.0)
[2025-06-25 11:30] LABS: Alanine Aminotransferase 9 U/L (7-40); Alkaline Phosphatase 135 U/L (46-116); Blood Urea Nitrogen 32 mg/dL (9-23)
== END | disposition home or self-care (01) ==
LOC: LAB 09:29
PROVIDERS: ATTEND Internal Medicine
DX: N18.32 Chronic kidney disease, stage 3b (principal); R82.90 Unspecified abnormal findings in urine; R74.8 Abnormal levels of other serum enzymes
CPT/HCPCS: 36415; 80053; 81001